=== PATIENT | female | born 1995 | race Caucasian/White ===

== ENCOUNTER → 2018-05-29 16:53 | Outpatient (CLI) | payer OTHER, SELFPAY ==
--- NOTE | 2018-05-29 08:30 | FLU_PTH ---
PATIENT: JACQUE LENTZ LOC: [facility] U#:[id number] AGE/SX: 29/F ROOM: RE05/29/[address]: Dr. Carolyn Nolen MD : 1995 BED: DIS: SPEC #: [id number] RECD: 05/29/18 16:58 STATUS: JANELL EVELYN #: [id number] SELVIN: 05/29/18 08:[address]: Carolyn Nolen DEPT: CYTOLOGY RECD BY: Dimitry Gomez ENTERED: 06/02/18 10:29 SP TYPE: Fluid OTHR DR: Qian Primary Care Phys Tissues: A - Thyroid gland, NOS B - Thyroid gland, NOS Procedures: Special Stain Group II Surgery Specimen Level IV Cytospin Fluid HEADER OPERATION: Ultrasound-guided fine needle aspiration of right thyroid PRE-OP DIAGNOSIS: Thyroid nodules TISSUE SUBMITTED: A - FNA right thyroid for cytology, B - FNA right thyroid slides DIAGNOSIS CYTOLOGY A. Right thyroid fluid, ultrasound-guided FNA (cytospin and cell block): Consistent with benign follicular nodule with cystic changes. See cytology study and comment. B. Right thyroid, ultrasound-guided FNA (smears): Consistent with benign follicular nodule with cystic changes. See cytology study and comment. SJ:rg 06/03/18 COMMENT Correlation with clinical, radiologic findings and appropriate follow up are necessary. Please make reference to previous specimen ([id number]) fine needle aspiration, right thyroid nodule with diagnosis of macrophages consistent with cyst contents. CYTOLOGY STUDY Slides are reviewed. A. The specimen consists of benign follicular cells and macrophages. B. The specimen is adequate for evaluation. The specimen consists of numerous macrophages and benign follicular cells. CYTOLOGY GROSS A - Received is 20 ml of brown cloudy fluid labeled with the patient's name and and designated per the requisition as right thyroid. Submitted for cytology preparation including cell block. B - Received are eight smears labeled with the patient's name and designated per the requisition as right thyroid. Submitted for staining. / 06/02/18 TC:5 CPT: 93360, 67783, 97030
== END ==
PROVIDERS: Referring Provider Surgery; Visit Provider Surgery
DX: E04.1 Nontoxic single thyroid nodule (principal)
CPT/HCPCS: 88108; 88305; 88313

== ENCOUNTER → 2018-06-29 15:14 | Outpatient (CLI) | payer OTHER, SELFPAY ==
[2018-06-29 18:27] LABS: Chlamydia Trachomatis by PCR Negative (Negative); Neisserai gonorrhoeae by PCR Negative (Negative); Probe Check PASS; Sample Adequacy Control PASS; Specimen Processing Control PASS
[2018-07-01 20:17] LABS: HPV Reflexed? NOT INDICATED
== END ==
PROVIDERS: Referring Provider Nurse Practitioner Women's Health; Visit Provider Nurse Practitioner Women's Health
DX: Z12.4 Encounter for screening for malignant neoplasm of cervix (principal); Z11.3 Encounter for screening for infections with a predominantly sexual mode of transmission
CPT/HCPCS: 87491; 87591; 87624; 88175; G0145

== ENCOUNTER → 2019-07-05 | Outpatient (CLI) | payer OTHER, SELFPAY ==
[2019-07-09 11:34] LABS: HPV Reflexed? NOT INDICATED
== END | disposition home or self-care (01) ==
PROVIDERS: PCP Family Medicine; Referring Provider Nurse Practitioner Women's Health; Visit Provider Nurse Practitioner Women's Health
DX: Z12.4 Encounter for screening for malignant neoplasm of cervix (principal)
CPT/HCPCS: 88175; G0145

== ENCOUNTER → 2020-07-27 | Outpatient (CLI) | payer OTHER, SELFPAY ==
[2020-07-27 08:13] VITALS: BMI 40.2
[2020-07-31 16:27] LABS: HPV Reflexed? NOT INDICATED
== END | disposition home or self-care (01) ==
LOC: LABSPEC 12:58
PROVIDERS: PCP Family Medicine; Referring Provider Nurse Practitioner Women's Health; Visit Provider Nurse Practitioner Women's Health
DX: Z12.4 Encounter for screening for malignant neoplasm of cervix (principal)
CPT/HCPCS: 88175; G0145

== ENCOUNTER → 2020-08-02 07:50 | Outpatient (CLI) | payer OTHER, SELFPAY ==
[2020-07-27 08:13] VITALS: BMI 40.2
[2020-08-02 08:32] LABS: Cholesterol 160 mg/dL (200); Estradiol 69.9 pg/mL; High Density Lipoprotein 25 mg/dL; Prolactin 23.7 ng/mL; Triglycerides 91 mg/dL; Very Low Density Lipoprotein 18 mg/dL (5-40)
[2020-08-06 07:57] LABS: Testosterone Free 5.1 pg/mL (0.0-4.2)
[2020-08-12 20:05] LABS: 17-Hydroxyprogesterone 84 ng/dL (.)
== END ==
PROVIDERS: PCP Family Medicine; Referring Provider Nurse Practitioner Women's Health; Visit Provider Nurse Practitioner Women's Health
DX: L68.0 Hirsutism (principal); N92.6 Irregular menstruation, unspecified; R63.5 Abnormal weight gain; Z13.220 Encounter for screening for lipoid disorders; E28.2 Polycystic ovarian syndrome
CPT/HCPCS: 36415; 80061; 82627; 82670; 83498; 84146; 84402; 82626

== ENCOUNTER 2020-08-24 19:03 | Emergency (ER) | payer OTHER, SELFPAY ==
[2020-08-10 08:02] VITALS: BMI 40.4
[2020-08-24 19:04] VITALS: BP 137/74; PULSE 76; RESP 18; TEMP 35.8; O2SAT 99; BMI 39.6
--- NOTE | 2020-08-24 20:06 | US_ITS ---
STUDY: VENOUS DOPPLER ULTRASOUND - RIGHT LOWER EXTREMITY REASON FOR EXAM: Female, 25 years old. POSTERIOR RT CALF PAIN- PT ON NEW CONTROL AND CONCERNED FOR BLOOD CLOT TECHNIQUE: Ultrasound evaluation of the deep vein system to include sultana-scale imaging and compression was performed. Sultana-scale imaging and Doppler sonographic evaluation, including duplex spectral analysis and qualitative color flow sonography, was performed. COMPARISON: None. FINDINGS: Common Femoral Vein: Normal compression, spontaneity and augmentation. Normal color Doppler. Common Femoral Vein/Greater Saphenous Junction: Normal compression. Femoral Proximal: Normal compression. Femoral Middle: Normal compression, spontaneity and augmentation. Normal color Doppler. Femoral Distal: Normal compression. Popliteal Vein: Normal compression, spontaneity and augmentation. Normal color Doppler. Posterior Tibial Vein: Normal compression. Peroneal Vein: Normal compression. There is a filling defect within the gastrocnemius vein consistent with a thrombus. There is a thrombus within the lesser saphenous vein as well. US/Venous Duplex Imag/Limited/Uni IMPRESSION: Thrombosed gastrocnemius and lesser saphenous veins. Electronically Signed: Marisol Pfeiffer MD at 20:54 EDT Tel , Service support ,
--- NOTE | 2020-08-24 20:43 | EDS_ITS ---
HPI History of Present Illness Chief Complaint: Lower Extremity Injury Informant: patient Onset/Context/Timing Onset: Today Context: Gradual Onset Timing: Continuous Quality of Pain: Dull Current Severity: Mild Maximum Severity: Mild Narrative Narrative: The patient is a healthy 25-year-old female that presents to the emergency department with posterior right calf pain. The patient states that she recently started control. Today at approximately 4 PM, she noticed a sharp pain in her calf. She denies any chest pain or shortness of breath. She is otherwise been in her normal state of health. She did call her CUT FILE CLERK who referred her to the emergency department for further evaluation. [facility] Medical History Thyroid nodule Home Medications norgestimate 0.25 mg-ethinyl estradiol 35 mcg tablet 1 tablet PO QDAY #84 tablet 08/10/20 [Rx Last Taken Unknown] apixaban [Eliquis DVT-PE Treat 30D Start] 5 mg PO BID #74 tab NS 08/24/20 [Rx Last Taken Unknown] Allergy/AdvReac Type Severity Reaction Status Date / Time codeine AdvReac Other Verified 08/24/20 19:06 Family History Unknown Hypertension Surgical History delivery delivered History of appendectomy Social History Smoking Status: Light Smoker (<10/day) alcohol intake: never substance use type: does not use caffeine: Yes what type of physical activity do you participate in: walking seatbelt use: always do you feel safe at home: Yes additional social history: single- works at [employer] ED Constitutional Constitutional ED: Denies chills or fever(s) Eyes Eyes: Denies blurry vision or change in vision ENT ENT ED: Denies ear pain or sore throat Cardiovascular Cardiovascular: Denies chest pain or palpitations Respiratory/Chest Respiratory/Chest: Denies cough, dyspnea or dyspnea on exertion Gastrointestinal Gastrointestinal: Denies abdominal pain, nausea or vomiting Genitourinary Genitourinary ED: Denies dysuria or urinary frequency Musculoskeletal Musculoskeletal: Denies arthralgias or myalgias Integumentary Denies rash Neurologic Neurologic: Denies headache(s) or paresthesias Psychiatric Psychiatric: Denies anxiety or depression Endocrine Endocrinology: Denies polydipsia or polyuria Allergic/Immunologic Allergic/Immunologic ED: Denies urticaria EXAM Physical Exam Const Vital Signs: 08/24/20 19:04 Temperature 96.5 F L Temperature Source Temporal Pulse Rate 76 Respiratory Rate 18 Blood Pressure 137/74 H Blood Pressure Mean 95 Pulse Ox 99 Oxygen Delivery Method Room Air Positive well nourished and well developed General Appearance ED: well developed HEENT Reports normocephalic, head/scalp atraumatic and moist mucous membranes Eyes PERRL and EOMs intact bilaterally Neck no lymphadenopathy and supple General: Negative for tenderness Chest Wall inspection of chest normal Resp normal respiratory effort and clear to auscultation bilaterally Cardio regular rate, regular rhythm and no murmurs GI normal to inspection, nondistended, normoactive bowel sounds Palpation: Negative for tender, guarding or rebound tenderness present Back/Spine no CVA tenderness Cervical Spine: Negative for cervical spine tenderness Thoracic Spine / Upper Back: Negative for thoracic spinal tenderness Extremity normal to inspection Extremity Narrative: Mild tenderness in the posterior right calf. Normal pulses. Compartments soft. General Extremety ED: Negative for tenderness Neuro oriented x3 and CN's II-XII intact bilaterally Neuro Narrative: No focal deficits appreciated. Sensorium / Orientation: alert Psych mental status grossly normal Skin no rashes or lesions noted, no wounds and skin turgor normal MDM MDM MDM Narrative Medical decision making narrative: Patient presents with calf pain. She did undergo ultrasound. She has both superficial and deep venous thrombosis. It is below the knee. I did discuss this with the patient. Due to her risk of propagation, she wants to start anticoagulants. I do feel that this is reasonable. The patient will be started on Eliquis. She will follow-up with CUT FILE CLERK for reevaluation or return with any worsening symptoms. Discharge Plan Triage Chief Complaint: Lower Extremity Injury ED Provider: Elgin Peña Dx/Rx/DC Orders Instructions: ED Deep Vein Thrombosis (DVT) Prescriptions: New Eliquis DVT-PE Treat 30D Start 5 mg (74 tabs) tablets,dose pack 5 mg PO BID Qty: 74 RF: 0 No Action norgestimate-ethinyl estradiol [Sprintec (28)] 0.25-35 mg-mcg tablet 1 tablet PO QDAY Qty: 84 RF: 3 Primary Care Provider: Sami Amaral Referrals: Sami Amaral MD [Primary Care Provider] - 1 Week
[2020-08-24 21:13] VITALS: BP 127/76
[2020-08-24] MEDS: APIXABAN 5 MG TABLET 10 MG PO (21:14)
== END 2020-08-24 21:15 | disposition home or self-care (01) ==
LOC: ED 21:00
PROVIDERS: Emergency Provider Emergency Medicine; PCP Family Medicine
DX: I82.461 Acute embolism and thrombosis of right calf muscular vein (principal); I82.811 Embolism and thrombosis of superficial veins of right lower extremity; F17.200 Nicotine dependence, unspecified, uncomplicated
CPT/HCPCS: 93971; 99282

== ENCOUNTER → 2020-09-19 10:05 | Outpatient (CLI) | payer OTHER, SELFPAY ==
[2020-09-19 08:15] VITALS: BMI 39.6
[2020-09-19 12:32] LABS: Free T3 3.2 pg/mL (2.18-3.98); T4 Free Direct 1.24 ng/dL (0.76-1.46)
[2020-09-20 22:13] LABS: Thyroid Peroxidase AB < 9 IU/mL (0-34)
[2020-09-21 17:07] LABS: Thyroglobulin Antibody < 1.0 IU/mL (0.0-0.9)
== END ==
PROVIDERS: PCP Internal Medicine; Referring Provider Internal Medicine; Visit Provider Internal Medicine
DX: E04.2 Nontoxic multinodular goiter (principal)
CPT/HCPCS: 36415; 84439; 84443; 84481; 86376; 86800

== ENCOUNTER 2021-05-30 09:49 | Outpatient (CLI) | payer OTHER, SELFPAY ==
[2021-05-30 12:15] LABS: Basophil# 0.04 X10^3/uL; Basophil% 0.4 % (0-1); Eosinophil# 0.11 X10^3/uL; Eosinophils% 1.2 % (0-5); Hematocrit 40.1 % (37-47); Hemoglobin 13.3 g/dL (12.0-15.0); Lymphocyte % 24.2 % (19-41); Mean Corp Hgb Conc 33.2 g/dL (32-36); Mean Corpuscular Hgb 28.5 pg (27.0-32.0); Mean Corpuscular Volume 86.1 fL (81-99); Mean Platelet Vol. 9.1 fl (6.2-12.0); Monocyte# 0.73 X10^3/uL; NRBC Flagged by Analyzer 0 % (0-5); Neutrophil # 5.98 X10^3/uL (2.7-7.7); Neutrophil % 65.9 % (47-70); Platelet Count 356 K/mm3 (150-450); RBC Distribution Width CV 13.6 % (11.6-14.6); RBC Distribution Width SD 42.9 fl (35.1-43.9); Red Blood Count 4.66 M/mm3 (4.2-5.4); White Blood Count 9.1 K/mm3 (4.4-11.0)
[2021-05-30 12:31] LABS: Vitamin D,25 Hydroxy 32.9 ng/mL
[2021-05-30 12:50] LABS: ALB/GLOB Ratio 0.9 RATIO (0.9-2.4); AST(SGOT) 15 U/L (15-37); Alanine Aminotransfer ALT/SGPT 31 U/L (13-56); Albumin, Serum 3.6 g/dL (3.2-5.0); Alkaline Phosphatase 88 U/L (45-117); Anion Gap 5 (5-15); BUN 14 mg/dL (7-18); BUN/Creat Ratio 15.9 RATIO (10-20); Chloride 102 mmol/L (98-107); Cholesterol 173 mg/dL (200); Creatinine, Serum 0.88 mg/dL (0.55-1.02); EST Glomerular Filtration Rate 83 mL/min (>60); Est Glom Filt Rate - Afr Amer 101 mL/min (>60); Free T3 2.8 pg/mL (2.18-3.98); Globulin 4.2 g/dL (2.2-4.2); Glucose 93 mg/dL (74-106); High Density Lipoprotein 22 mg/dL; Potassium 4.4 mmol/L (3.5-5.1); Protein, Total 7.8 g/dL (6.4-8.2); Sodium Level 136 mmol/L (136-145); T4 Free Direct 1.25 ng/dL (0.76-1.46); Thyroid Stim Hormone (TSH) 1.48 uIU/mL (0.358-3.74); Triglycerides 111 mg/dL; Very Low Density Lipoprotein 22 mg/dL (5-40)
== END 2021-05-30 23:59 | disposition short-term general hospital (02) ==
LOC: BIMLAB 09:50
PROVIDERS: PCP Internal Medicine; Referring Provider Internal Medicine; Visit Provider Internal Medicine
DX: E04.2 Nontoxic multinodular goiter (principal); E28.2 Polycystic ovarian syndrome; Z76.89 Persons encountering health services in other specified circumstances
CPT/HCPCS: 36415; 80053; 80061; 82306; 84439; 84443; 84481; 85025

== ENCOUNTER 2021-07-03 08:08 | Outpatient (CLI) | payer OTHER, SELFPAY ==
--- NOTE | 2021-07-03 08:10 | US_ITS ---
STUDY: THYROID ULTRASOUND REASON FOR EXAM: Female, 26 years old. Followup thyroid multinodular goiter -- Please include TIRADS score. TECHNIQUE: Ultrasound evaluation of the thyroid was performed with real-time and static hutton-scale imaging. COMPARISON: Comparison is made with prior study dated 09/16/2014. FINDINGS: RIGHT LOBE: The right lobe of the thyroid gland is enlarged and measures 5.7 cm x 2 cm x 1.4 cm. There is a homogeneous echotexture. There is a 1.7 cm x 1.5 cm x 0.9 cm solid and cystic nodule in the lower pole. Increased vascularity is seen. TIRADS 3. There is also evidence of a 6 mm x 5 mm x 4 mm cyst in the upper pole. LEFT LOBE: The left lobe of the thyroid gland is enlarged and measures 5.4 cm x 2 cm x 1.1 cm. There is a homogeneous echotexture. There are no demonstrated solid, cystic or complex lesions. ISTHMUS: The isthmus measures 2 mm. The regional lymph nodes are normal. US/Thyroid IMPRESSION: 1.7 cm x 1.5 cm x 0.9 cm solid and cystic nodule in the lower pole with increased vascularity. Biopsy recommended. TIRADS 3 Electronically Signed: Biju Wei MD at 12:54 EST ,
== END 2021-07-03 23:59 | disposition home or self-care (01) ==
PROVIDERS: PCP Internal Medicine; Referring Provider Internal Medicine; Visit Provider Internal Medicine
DX: E04.2 Nontoxic multinodular goiter (principal)
CPT/HCPCS: 76536

== ENCOUNTER 2021-07-30 09:55 | Outpatient (CLI) | payer OTHER, SELFPAY ==
[2021-08-07 16:02] LABS: HPV Reflexed? NOT INDICATED
== END 2021-07-30 23:59 | disposition home or self-care (01) ==
LOC: LABSPEC 07-31 09:56
PROVIDERS: PCP Internal Medicine; Visit Provider Nurse Practitioner Women's Health
DX: R87.610 Atypical squamous cells of undetermined significance on cytologic smear of cervix (ASC-US) (principal); R87.810 Cervical high risk human papillomavirus (HPV) DNA test positive
CPT/HCPCS: 88175; G0145

== ENCOUNTER → 2022-03-14 | Outpatient (CLI) | payer OTHER, SELFPAY ==
--- NOTE | 2022-03-14 07:45 | US_ITS ---
STUDY: ULTRASOUND OF THE FEMALE PELVIS - COMPLETE REASON FOR EXAM: Female, 26 years old. Pelvic pain/IUD placement LMP: 02/09/2023. TECHNIQUE: Transvaginal TECHNICAL QUALITY: Adequate. COMPARISON: None. FINDINGS: The uterus is anteverted and is tilted to the right side of the pelvis. The uterus measures 8.9 cm x 5.7 cm x 4.1 cm. There is a Nabothian cyst of the cervix. The endometrium measures 5 mm in thickness, and is hyperechoic. There is no demonstrated endometrial mass. There is no demonstrated myometrial mass. I.U.D. - The patient does have an I.U.D.. The IUD is seen within the fundal portion of the endometrium. The right ovary is visualized. The right ovary measures 2.8 cm x 2.3 cm x 2.6 cm. There is no right ovarian cyst or ovarian mass. There is no visualized right adnexal mass or complex lesion. There is normal arterial and normal venous vascularity. The left ovary is visualized. The left ovary measures 2.6 cm x 2.6 x 2.9 cm. There is no left ovarian cyst or ovarian mass. There is no visualized left adnexal mass or complex lesion. There is normal arterial and normal venous vascularity. There is no fluid in the cul-de-sac. US/Transvaginal Non- IMPRESSION: The IUD is seen within the fundal portion of the endometrium. Electronically Signed: Biju Wei MD at 8:37 EST ,
== END | disposition home or self-care (01) ==
PROVIDERS: PCP Internal Medicine; Visit Provider Obstetrics & Gynecology
DX: R10.2 Pelvic and perineal pain (principal)
CPT/HCPCS: 76830; 93976

== ENCOUNTER → 2022-08-26 | Outpatient (CLI) | payer OTHER, SELFPAY ==
[2022-08-26 10:54] LABS: HIV - WCH Non-Reactive (Nonreactive); Hepatitis C Antibody Non-Reactive (Nonreactive); Syphilis Antibodies Non-reactive
[2022-08-27 22:06] LABS: Chlamydia By Nucleic Acid AMP Negative (Negative); Gonococcus By Nucleic Acid AMP Negative (Negative)
== END | disposition home or self-care (01) ==
PROVIDERS: PCP Internal Medicine; Referring Provider Nurse Practitioner Women's Health; Visit Provider Nurse Practitioner Women's Health
DX: Z20.2 Contact with and (suspected) exposure to infections with a predominantly sexual mode of transmission (principal)
CPT/HCPCS: 36415; 86695; 86696; 86703; 86780; 86803; 87491; 87591

== ENCOUNTER → 2023-02-17 | Outpatient (CLI) | payer OTHER, SELFPAY ==
--- NOTE | 2023-02-17 15:35 | VDLE_ITS ---
Reason For Study: Right leg swelling/pain RIGHT LEFT GSV is normal. CFV is compressible, spontaneous, phasic, CFV is compressible, spontaneous, phasic, competent, and demonstrates normal competent and demonstrates normal augmentation. augmentation. FV is compressible, spontaneous, phasic, competent and demonstrates normal augmentation. POP V is compressible, spontaneous, phasic, competent and demonstrates normal augmentation. T/P Trunk is compressible. PTV is compressible. RT PerV is compressible. Acute deep vein thrombosis is noted in the Gastrocnemius V. It is dilated and NONCOMPRESSIBLE. Procedure Exam performed in department. This is a venous duplex using B-mode, color flow and spectral Doppler. A preliminary report was called and/or faxed to Matthew CARREON. VL/Venous Duplex US, Unilateral Interpretation Summary Acute deep vein thrombosis is noted in the right gastrocnemius vein. Ordering Physician: Kiara Hernandez Referring Physician: Kiara Hernandez Performed By: Chery Bird RVT
== END | disposition home or self-care (01) ==
LOC: CVS 15:32
PROVIDERS: PCP Internal Medicine; Referring Provider Internal Medicine; Visit Provider Internal Medicine
DX: I82.409 Acute embolism and thrombosis of unspecified deep veins of unspecified lower extremity (principal); M79.89 Other specified soft tissue disorders; M79.604 Pain in right leg
CPT/HCPCS: 93971

== ENCOUNTER → 2023-02-21 | Outpatient (CLI) | payer OTHER, SELFPAY ==
[2023-02-21 12:12] LABS: Absolute Lymphocyte Count 2.15 X10^3/uL (0.83-4.51); Absolute Neutrophil Count 4.9 X10^3/uL (2.0-7.7); Basophil# 0.05 X10^3/uL; Basophil% 0.6 % (0-1); Eosinophil# 0.14 X10^3/uL; Eosinophils% 1.8 % (0-5); Hematocrit 40.4 % (37-47); Hemoglobin 13.3 g/dL (12.0-15.0); Lymphocyte # 2.15 X10^3/ul (0.83-4.51); Lymphocyte % 27.2 % (19-41); Mean Corp Hgb Conc 32.9 g/dL (32-36); Mean Corpuscular Hgb 29.6 pg (27.0-32.0); Mean Platelet Vol. 9.1 fl (6.2-12.0); Monocyte# 0.69 X10^3/uL; Monocyte% 8.7 % (0-10); NRBC Flagged by Analyzer 0 % (0-5); Neutrophil # 4.85 X10^3/uL (2.7-7.7); Neutrophil % 61.6 % (47-70); Platelet Count 318 K/mm3 (150-450); RBC Distribution Width CV 12.9 % (11.6-14.6); RBC Distribution Width SD 43.2 fl (35.1-43.9); Red Blood Count 4.49 M/mm3 (4.2-5.4); White Blood Count 7.9 K/mm3 (4.4-11.0)
[2023-02-21 12:28] LABS: Insulin 14.2 mU/L (2.6-37.6); Vitamin D,25 Hydroxy 33.5 ng/mL
[2023-02-21 12:38] LABS: ALB/GLOB Ratio 0.8 RATIO (0.9-2.4); AST(SGOT) 11 U/L (15-37); Alanine Aminotransfer ALT/SGPT 27 U/L (13-56); Albumin, Serum 3.3 g/dL (3.2-5.0); Alkaline Phosphatase 76 U/L (45-117); Anion Gap 5 (5-15); BUN 14 mg/dL (7-18); BUN/Creat Ratio 16.1 RATIO (10-20); Calcium,Total 8.5 mg/dL (8.5-10.1); Chloride 106 mmol/L (98-107); Cholesterol 159 mg/dL (200); Creatinine, Serum 0.87 mg/dL (0.55-1.02); EST Glomerular Filtration Rate 83 mL/min (>60); Est Glom Filt Rate - Afr Amer 100 mL/min (>60); Free T3 3.1 pg/mL (2.18-3.98); Glucose 90 mg/dL (74-106); High Density Lipoprotein 28 mg/dL; Potassium 3.7 mmol/L (3.5-5.1); Protein, Total 7.3 g/dL (6.4-8.2); Sodium Level 136 mmol/L (136-145); T4 Free Direct 1.24 ng/dL (0.76-1.46); Thyroid Stim Hormone (TSH) 1.46 uIU/mL (0.358-3.74); Triglycerides 78 mg/dL; Very Low Density Lipoprotein 16 mg/dL (5-40)
== END | disposition home or self-care (01) ==
PROVIDERS: PCP Internal Medicine; Referring Provider Internal Medicine; Visit Provider Internal Medicine
DX: Z00.00 Encounter for general adult medical examination without abnormal findings (principal); I82.409 Acute embolism and thrombosis of unspecified deep veins of unspecified lower extremity; Z13.220 Encounter for screening for lipoid disorders; Z86.718 Personal history of other venous thrombosis and embolism; R73.9 Hyperglycemia, unspecified
CPT/HCPCS: 36415; 80053; 80061; 82306; 83036; 83525; 84439; 84443; 84481; 85025

== ENCOUNTER → 2023-08-26 | Outpatient (CLI) | payer OTHER, SELFPAY ==
[2023-08-26 09:57] LABS: Absolute Neutrophil Count 3.6 X10^3/uL (2.0-7.7); Basophil# 0.06 X10^3/uL; Basophil% 0.9 % (0-1); Eosinophil# 0.17 X10^3/uL; Eosinophils% 2.6 % (0-5); Hematocrit 40.8 % (37-47); Hemoglobin 13.4 g/dL (12.0-15.0); Lymphocyte % 33.4 % (19-41); Mean Corp Hgb Conc 32.8 g/dL (32-36); Mean Corpuscular Hgb 28.7 pg (27.0-32.0); Mean Corpuscular Volume 87.4 fL (81-99); Mean Platelet Vol. 8.9 fl (6.2-12.0); Monocyte# 0.53 X10^3/uL; NRBC Flagged by Analyzer 0 % (0-5); Neutrophil # 3.61 X10^3/uL (2.7-7.7); Neutrophil % 54.8 % (47-70); Platelet Count 363 K/mm3 (150-450); RBC Distribution Width CV 13.7 % (11.6-14.6); RBC Distribution Width SD 44.2 fl (35.1-43.9); Red Blood Count 4.67 M/mm3 (4.2-5.4); White Blood Count 6.6 K/mm3 (4.4-11.0)
[2023-08-26 10:17] LABS: D-Dimer Quantitative (DVT/PE) < 0.27 FEU/ug/m (0.27-0.49)
[2023-08-26 10:22] LABS: Vitamin D,25 Hydroxy 31.1 ng/mL
[2023-08-26 10:36] LABS: ALB/GLOB Ratio 0.9 RATIO (0.9-2.4); AST(SGOT) 16 U/L (15-37); Alanine Aminotransfer ALT/SGPT 27 U/L (13-56); Albumin, Serum 3.5 g/dL (3.2-5.0); Alkaline Phosphatase 77 U/L (45-117); Anion Gap 5 (5-15); BUN 10 mg/dL (7-18); BUN/Creat Ratio 11.4 RATIO (10-20); Calcium,Total 8.6 mg/dL (8.5-10.1); Chloride 108 mmol/L (98-107); Cholesterol 162 mg/dL (200); Creatinine, Serum 0.88 mg/dL (0.55-1.02); EST Glomerular Filtration Rate 82 mL/min (>60); Est Glom Filt Rate - Afr Amer 99 mL/min (>60); Free T3 2.8 pg/mL (2.18-3.98); Globulin 3.8 g/dL (2.2-4.2); Glucose 96 mg/dL (74-106); High Density Lipoprotein 30 mg/dL; Potassium 4.1 mmol/L (3.5-5.1); Protein, Total 7.3 g/dL (6.4-8.2); Sodium Level 138 mmol/L (136-145); T4 Free Direct 1.13 ng/dL (0.76-1.46); Thyroid Stim Hormone (TSH) 2.01 uIU/mL (0.358-3.74); Triglycerides 65 mg/dL; Very Low Density Lipoprotein 13 mg/dL (5-40)
[2023-08-28 16:09] LABS: Dilute Prothrombin Time (dPT) 45.2 sec (0.0-47.6); Dilute Russell Viper Venom 44.2 sec (0.0-47.0); Interpretation Comment: (.); PTT-LA 38.1 sec (0.0-43.5); Thrombin Time 15.9 sec (0.0-23.0); dPT Confirm Ratio 1.23 Ratio (0.00-1.34)
== END | disposition home or self-care (01) ==
PROVIDERS: PCP Internal Medicine; Visit Provider Internal Medicine
DX: Z00.00 Encounter for general adult medical examination without abnormal findings (principal); Z13.220 Encounter for screening for lipoid disorders; E78.6 Lipoprotein deficiency; E04.2 Nontoxic multinodular goiter; E55.9 Vitamin D deficiency, unspecified; R76.0 Raised antibody titer; Z86.718 Personal history of other venous thrombosis and embolism
CPT/HCPCS: 36415; 80053; 80061; 82306; 84439; 84443; 84481; 85025; 85379

== ENCOUNTER → 2023-10-09 | Outpatient (CLI) | payer OTHER, SELFPAY ==
[2023-10-09 09:44] LABS: Absolute Lymphocyte Count 2.34 X10^3/uL (0.83-4.51); Absolute Neutrophil Count 6.3 X10^3/uL (2.0-7.7); Basophil# 0.06 X10^3/uL; Basophil% 0.6 % (0-1); Eosinophil# 0.11 X10^3/uL; Eosinophils% 1.1 % (0-5); Hematocrit 42.1 % (37-47); Hemoglobin 13.8 g/dL (12.0-15.0); Lymphocyte # 2.34 X10^3/ul (0.83-4.51); Lymphocyte % 24.4 % (19-41); Mean Corp Hgb Conc 32.8 g/dL (32-36); Mean Corpuscular Hgb 28.2 pg (27.0-32.0); Mean Corpuscular Volume 86.1 fL (81-99); Mean Platelet Vol. 8.7 fl (6.2-12.0); Monocyte# 0.77 X10^3/uL; NRBC Flagged by Analyzer 0 % (0-5); Neutrophil % 65.7 % (47-70); Platelet Count 328 K/mm3 (150-450); RBC Distribution Width CV 13.2 % (11.6-14.6); RBC Distribution Width SD 41.5 fl (35.1-43.9); Red Blood Count 4.89 M/mm3 (4.2-5.4); White Blood Count 9.6 K/mm3 (4.4-11.0)
[2023-10-09 09:58] LABS: ALB/GLOB Ratio 0.9 RATIO (0.9-2.4); AST(SGOT) 16 U/L (15-37); Alanine Aminotransfer ALT/SGPT 21 U/L (13-56); Albumin, Serum 3.6 g/dL (3.2-5.0); Alkaline Phosphatase 70 U/L (45-117); Anion Gap 5 (5-15); BUN 14 mg/dL (7-18); BUN/Creat Ratio 16.1 RATIO (10-20); Calcium,Total 9.2 mg/dL (8.5-10.1); Chloride 106 mmol/L (98-107); Creatinine, Serum 0.87 mg/dL (0.55-1.02); EST Glomerular Filtration Rate 83 mL/min (>60); Est Glom Filt Rate - Afr Amer 100 mL/min (>60); Glucose 111 mg/dL (74-106); Lipase 31 U/L (13-75); Potassium 3.7 mmol/L (3.5-5.1); Protein, Total 7.6 g/dL (6.4-8.2); Sodium Level 137 mmol/L (136-145)
== END | disposition home or self-care (01) ==
LOC: PAVLAB 09:24
PROVIDERS: PCP Internal Medicine; Referring Provider Internal Medicine; Visit Provider Internal Medicine
DX: R11.2 Nausea with vomiting, unspecified (principal); R14.0 Abdominal distension (gaseous)
CPT/HCPCS: 36415; 80053; 83690; 85025

== ENCOUNTER 2024-01-28 07:04 | Emergency (ER) | payer OTHER, SELFPAY ==
[2024-01-28 07:04] VITALS: BP 153/91; PULSE 96; RESP 18; TEMP 36.6; O2SAT 100; BMI 38.0
--- NOTE | 2024-01-28 07:20 | EKG12_ITS ---
Test Reason : DIZZINESS Blood Pressure : / mmHG Vent. Rate : 078 BPM Atrial Rate : 078 BPM P-R Int : 206 ms QRS Dur : 098 ms QT Int : 362 ms P-R-T Axes : 057 037 032 degrees QTc Int : 412 ms Normal sinus rhythm Normal ECG Confirmed by INGRID WILCOX, DANIELLE ([id number]), greeting card editor ERWIN MALAVE ([id number]) on 01/30/2024 11:46:43 AM Referred By: Confirmed By:DANIELLE QUINTERO MD
--- NOTE | 2024-01-28 07:23 | EX.ED.DYSGE1 ---
HPI History of Present Illness Chief Complaint: Dizziness Informant: patient Narrative Narrative: Presents symptoms little over 24 hours reporting chills muscle aches. Had a cough 2 days ago that is resolved. Vomiting diarrhea or last 24 hours. Nonbloody. 4 bouts of vomiting, 2 bouts of diarrhea. No recent antibiotics. Denies any hematemesis, melena, or bloody stools. She is on Eliquis for DVTs with factor V Leiden. No urinary symptoms. Has an IUD therefore unknown last menstrual period. Denies sick contacts. States lightheaded symptoms denies dizzy or spinning. No syncopal episodes. No chest pains or shortness of breath. [facility] Medical History Palpitations GERD (gastroesophageal reflux disease) Anxiety Multinodular goiter DVT (deep venous thrombosis) Thyroid nodule Home Medications ?Medication ?Instructions ?Recorded ?Last Taken ?Type levonorgestrel 21 mcg/24 hr (up to 1 device intrauterine ONCE 03/27/22 Unknown History 8 years) 52 mg intrauterine device (Mirena) sertraline 50 mg tablet (Zoloft) 50 mg PO DAILY #90 tabs 06/19/22 Unknown Rx lidocaine 4 % topical gel 1 applic topical BID-QID PRN pain 02/04/23 Unknown Rx #30 grams probiotic PO 02/20/23 Unknown History valacyclovir 1 gram tablet 1,000 mg PO BID PRN 02/20/23 Unknown History (Valtrex) apixaban 5 mg tablet (Eliquis) 5 mg PO BID #180 tabs 03/18/23 Unknown Rx spironolactone 100 mg tablet 100 mg PO DAILY #90 tabs 08/19/23 Unknown Rx cholecalciferol (vitamin D3) 50 50 mcg PO DAILY 10/09/23 Unknown History mcg (2,000 unit) capsule ondansetron 4 mg disintegrating 4 mg PO Q8H PRN PRN Nausea #10 tabs 01/28/24 Unknown Rx tablet Allergy/AdvReac Type Severity Reaction Status Date / Time codeine AdvReac Other Verified 01/28/24 07:04 Family History Unknown Hypertension Mother Diabetes Grandmother Neuropathy Surgical History History of appendectomy delivery delivered Social History Smoking Status: Former smoker quit date: 02/26/18 Tobacco: How many years used: 4 alcohol intake: never substance use type: does not use caffeine: Yes what type of physical activity do you participate in: walking seatbelt use: always do you feel safe at home: Yes additional social history: single- works at [employer] ED Constitutional Constitutional ED: Reports chills and fever(s); Denies sweats Eyes Eyes: Denies change in vision ENT ENT ED: Denies dysphagia or sore throat Cardiovascular Cardiovascular: Denies chest pain, leg edema, palpitations or racing heartbeat Respiratory/Chest Respiratory/Chest: Denies cough, dyspnea or dyspnea on exertion Gastrointestinal Gastrointestinal: Reports diarrhea, nausea and vomiting; Denies abdominal pain Genitourinary Genitourinary ED: Denies dysuria, hematuria or urinary frequency Musculoskeletal Musculoskeletal: Reports myalgias; Denies back pain, extremity pain or neck pain Integumentary Denies rash or wounds Neurologic Neurologic: Denies headache(s), paresthesias or weakness EXAM Physical Exam Const Vital Signs: 01/28/24 07:04 01/28/24 09:07 Temperature 97.8 F Temperature Source Temporal Pulse Rate 96 81 Respiratory Rate 18 15 Blood Pressure 153/91 H 116/71 Blood Pressure Mean 111 86 Pulse Ox 100 95 Oxygen Delivery Method Room Air Room Air Positive well nourished and well developed General Appearance ED: well developed and NAD HEENT HEENT Narrative: Mild dry mucosal membranes normocephalic and atraumatic Eyes EOMs intact bilaterally and conjunctivae normal General Eye ED: Yes normal appearance of both eyes Neck no lymphadenopathy and supple General: Negative for tenderness Chest Wall Chest: Negative for tenderness Resp normal respiratory effort and normal air movement Effort and Inspection: symmetric chest movement; Negative for respiratory distress Cardio regular rate, regular rhythm and no murmurs Peripheral Pulses: pulses 2+ throughout GI normal to inspection, nondistended, normoactive bowel sounds and non-tender GI Narrative: Negative England's and McBurney's tenderness Palpation: Negative for guarding or rebound tenderness present Back/Spine no CVA tenderness and no thoracic nor lumbar tenderness Extremity normal to inspection General Extremety ED: Negative for edema or tenderness General Extremity: Negative for edema Neuro oriented x3, CN's II-XII intact bilaterally and no sensory deficits noted Sensorium / Orientation: awake and alert Skin no rashes or lesions noted and no wounds MDM MDM MDM Narrative Medical decision making narrative: Interventions / MDM: Differential diagnosis: Viral syndrome, nausea and vomiting, electrolyte abnormalities Diagnosis considered but do not suspect: No clinical cholecystitis, colitis, or appendicitis My EKG interpretation: Sinus rate of 78, no ST or T wave changes. QTc 412. Imaging independently reviewed and interpreted by myself: N/A External documents reviewed: N/A Test considered but not ordered:N/A ED course: Vital stable, slight dry mucosal membranes with vomiting diarrhea. Lightheaded symptoms. EKG ordered, labs ordered fluids and antiemetics. COVID flu and RSV sent. 0930: Labs slight hypokalemia. Normal renal function. Normal white count. hCG negative. EKG normal. Clinically feeling better tolerating p.o. fluids and potassium was replaced. COVID flu and RSV are negative. Discussed viral syndrome. Discussed continued oral hydration at home. Luz sent to her pharmacy. She is concerned with recurrent nausea and vomiting symptoms. I will refer her to GI as an outpatient. Re-evaluation: stable Disposition discussed with patient/family/significant other: Case discussed with consulting clinician: N/A This note was generated with [employer] dictation software. It may contain incorrect words, spelling, and punctuation that were not noted in checking the note before signing. Lab Data Labs: Laboratory Results - last 24 hr 01/28/24 07:35 WBC 9.1 RBC 4.68 Hgb 13.3 Hct 40.2 MCV 85.9 MCH 28.4 MCHC 33.1 RDW Std Deviation 41.6 RDW Coeff of Carley 13.2 Plt Count 303 MPV 8.6 Immature Gran % (Auto) 0.600 Neut % (Auto) 70.7 H Lymph % (Auto) 20.2 [place] % (Auto) 7.0 Eos % (Auto) 0.9 Baso % (Auto) 0.6 Absolute Neuts (auto) 6.4 Absolute Lymphs (auto) 1.83 Nucleated RBC % 0 Sodium 138 Potassium 3.3 L Chloride 106 Carbon Dioxide 27.0 Anion Gap 5 BUN 10 Creatinine 0.95 Estim Creat Clear Calc 98.95 Est GFR (MDRD) Af Amer 90 Est GFR (MDRD) Non-Af 74 BUN/Creatinine Ratio 10.5 Glucose 112 H Calcium 8.7 Serum , Qual NEGATIVE Discharge Plan Triage Chief Complaint: Dizziness ED Provider: Ousmane Wallis Dx/Rx/DC Orders Clinical Impression: Nausea vomiting and diarrhea, Light-headed, Hypokalemia, Acute viral syndrome Instructions: ED Viral Syndrome (Adult), ED Vomit Diarrhea Nonspec Adult Prescriptions: New ondansetron 4 mg tablet,disintegrating 4 mg PO Q8H PRN PRN (Reason: Nausea) Qty: 10 0RF No Action Mirena 20 mcg/24 hours (8 yrs) 52 mg intrauterine device 1 device intrauterine ONCE Rx Instructions: as a single dose sertraline [Zoloft] 50 mg tablet 50 mg PO DAILY Qty: 90 4RF valacyclovir [Valtrex] 1 gram tablet 1,000 mg PO BID PRN probiotic PO cholecalciferol (vitamin D3) 50 mcg (2,000 unit) capsule 50 mcg PO DAILY lidocaine 4 % gel 1 applic topical BID-QID PRN (Reason: pain) Qty: 30 1RF Eliquis 5 mg tablet 5 mg PO BID Qty: 180 1RF spironolactone 100 mg tablet 100 mg PO DAILY Qty: 90 4RF Primary Care Provider: Kiara Hernandez Referrals: Kiara Hernandez MD [Primary Care Provider] - 1 Week Brandon Fam DO [Med Staff - Active Staff] - 1-2 Weeks Activity Restrictions/Additional Instructions: COVID flu and RSV negative. Labs stable slight hypokalemia potassium 3.3. Continue oral fluids for hydration. Use Zofran as needed. Follow-up with your doctor. With your concerns of recurrent vomiting issues, he may follow-up with GI, Dr. Fam. Print Language: Welsh Disposition Disposition: Home, Self Care Discharge Date/Time: 01/28/24 10:13
[2024-01-28 07:45] LABS: Absolute Lymphocyte Count 1.83 X10^3/uL (0.83-4.51); Absolute Neutrophil Count 6.4 X10^3/uL (2.0-7.7); Basophil# 0.05 X10^3/uL; Basophil% 0.6 % (0-1); Eosinophil# 0.08 X10^3/uL; Eosinophils% 0.9 % (0-5); Hematocrit 40.2 % (37-47); Hemoglobin 13.3 g/dL (12.0-15.0); Lymphocyte # 1.83 X10^3/ul (0.83-4.51); Lymphocyte % 20.2 % (19-41); Mean Corp Hgb Conc 33.1 g/dL (32-36); Mean Corpuscular Hgb 28.4 pg (27.0-32.0); Mean Corpuscular Volume 85.9 fL (81-99); Mean Platelet Vol. 8.6 fl (6.2-12.0); Monocyte# 0.63 X10^3/uL; NRBC Flagged by Analyzer 0 % (0-5); Neutrophil # 6.41 X10^3/uL (2.7-7.7); Neutrophil % 70.7 % (47-70); Platelet Count 303 K/mm3 (150-450); RBC Distribution Width CV 13.2 % (11.6-14.6); RBC Distribution Width SD 41.6 fl (35.1-43.9); Red Blood Count 4.68 M/mm3 (4.2-5.4); White Blood Count 9.1 K/mm3 (4.4-11.0)
[2024-01-28] MEDS: Ondansetron 4 MG/2 ML Vial IV (07:57)
[2024-01-28] MEDS: 0.9% Normal Saline (1000mL) 1,000 ML 1000 ML IV (07:57)
[2024-01-28 08:00] LABS: Internal QC Validated? YES +Cl - CLEAR BKGD; Pregnancy, Serum, hCG Quali. NEGATIVE Negative
[2024-01-28 08:04] LABS: Anion Gap 5 (5-15); BUN 10 mg/dL (7-18); BUN/Creat Ratio 10.5 RATIO (10-20); Calcium,Total 8.7 mg/dL (8.5-10.1); Chloride 106 mmol/L (98-107); Creatinine, Serum 0.95 mg/dL (0.55-1.02); EST Glomerular Filtration Rate 74 mL/min (>60); Est Glom Filt Rate - Afr Amer 90 mL/min (>60); Estimated Creatinine Clearance 98.95 ml/min; Glucose 112 mg/dL (74-106); Potassium 3.3 mmol/L (3.5-5.1); Sodium Level 138 mmol/L (136-145)
[2024-01-28] MEDS: Potassium Chloride Oral Tablet 20 MEQ 40 MEQ PO (09:03)
[2024-01-28] MEDS: Acetaminophen 500 MG Tablet 1000 MG PO (09:04)
[2024-01-28 09:07] VITALS: BP 116/71; PULSE 81; RESP 15; O2SAT 95
== END 2024-01-28 10:13 | disposition home or self-care (01) ==
PROVIDERS: Emergency Provider Emergency Medicine; PCP Internal Medicine; Visit Provider Emergency Medicine
DX: R11.2 Nausea with vomiting, unspecified (principal); R19.7 Diarrhea, unspecified; R42 Dizziness and giddiness; E87.6 Hypokalemia; B34.9 Viral infection, unspecified; Z87.891 Personal history of nicotine dependence; Z86.718 Personal history of other venous thrombosis and embolism
CPT/HCPCS: 80048; 84703; 85025; 87631; 93005; 96361; 96374; 99285; J7030; A4216; J2405

== ENCOUNTER → 2024-01-31 | Outpatient (CLI) | payer OTHER, SELFPAY ==
--- NOTE | 2024-01-31 10:22 | US_ITS ---
STUDY: ABDOMINAL ULTRASOUND - RIGHT UPPER QUADRANT REASON FOR VISIT: Female, 28 years old. ABDOMEN PAIN Nausea vomiting bloating TECHNIQUE: Ultrasound evaluation of the right upper quadrant was performed with real-time and static hutton-scale imaging. TECHNICAL QUALITY: Adequate. COMPARISON: None FINDINGS: Liver: There is increased echogenicity consistent with fatty infiltration. The bile ducts are within normal limits. There is hepatic color flow. The direction of portal flow is hepatopetal. There is no demonstrated mass lesion. Gallbladder: Normal distended gallbladder. The gallbladder wall measures 1.5 mm. There is a negative sonographic England''s sign. There is no pericholecystic fluid. There is biliary sludge dependent within the gallbladder vs small gallstones. Common Bile Duct (C.B.D.): The common bile duct measures ( in mm): 3.9 Pancreas: Normal size of the head, body of the pancreas. There is normal echogenicity of the pancreas. There is no demonstrated pancreatic mass or cyst. Right Kidney: Normal size of the right kidney. The right kidney measures 10.8 cm. . Normal renal cortex. There is no demonstrated renal mass or cyst. There is no right hydronephrosis. Aorta: It is not visualized. There is too much overlying bowel gas. . US/Gallbladder IMPRESSION: There is biliary sludge dependent within the gallbladder vs small gallstones. Fatty liver. Electronically Signed: Michael Lopez MD at 16:50 EDT ,
== END | disposition home or self-care (01) ==
LOC: US 10:21
PROVIDERS: PCP Internal Medicine; Referring Provider Internal Medicine; Visit Provider Internal Medicine
DX: R14.0 Abdominal distension (gaseous) (principal); R11.2 Nausea with vomiting, unspecified
CPT/HCPCS: 76705

== ENCOUNTER → 2024-03-03 | Outpatient (CLI) | payer OTHER, SELFPAY | END | disposition home or self-care (01) | PROVIDERS: PCP Internal Medicine; Referring Provider Internal Medicine; Visit Provider Internal Medicine | DX: R14.0 Abdominal distension (gaseous) (principal); R11.2 Nausea with vomiting, unspecified; E66.9 Obesity, unspecified | CPT/HCPCS: 78227; A9537; J2805 ==

== ENCOUNTER → 2024-04-17 | Outpatient (CLI) | payer OTHER, SELFPAY ==
[2024-04-17 09:20] LABS: Absolute Lymphocyte Count 2.09 X10^3/uL (0.83-4.51); Absolute Neutrophil Count 5.2 X10^3/uL (2.0-7.7); Basophil# 0.07 X10^3/uL; Basophil% 0.9 % (0-1); Eosinophil# 0.14 X10^3/uL; Eosinophils% 1.7 % (0-5); Hematocrit 40.7 % (37-47); Hemoglobin 13.8 g/dL (12.0-15.0); Lymphocyte # 2.09 X10^3/ul (0.83-4.51); Lymphocyte % 25.6 % (19-41); Mean Corp Hgb Conc 33.9 g/dL (32-36); Mean Corpuscular Hgb 28.8 pg (27.0-32.0); Monocyte# 0.64 X10^3/uL; Monocyte% 7.8 % (0-10); NRBC Flagged by Analyzer 0 % (0-5); Neutrophil # 5.21 X10^3/uL (2.7-7.7); Neutrophil % 63.6 % (47-70); Platelet Count 332 K/mm3 (150-450); RBC Distribution Width CV 13.4 % (11.6-14.6); RBC Distribution Width SD 41.8 fl (35.1-43.9); Red Blood Count 4.79 M/mm3 (4.2-5.4); White Blood Count 8.2 K/mm3 (4.4-11.0)
[2024-04-17 09:53] LABS: ALB/GLOB Ratio 1.1 RATIO (0.9-2.4); AST(SGOT) 14 U/L (15-37); Alanine Aminotransfer ALT/SGPT 22 U/L (13-56); Albumin, Serum 3.6 g/dL (3.2-5.0); Alkaline Phosphatase 67 U/L (45-117); Anion Gap 2 (5-15); BUN 9 mg/dL (7-18); BUN/Creat Ratio 10.4 RATIO (10-20); CRP 3.59 mg/L (0.0-3.0); Calcium,Total 8.8 mg/dL (8.5-10.1); Chloride 108 mmol/L (98-107); Creatinine, Serum 0.86 mg/dL (0.55-1.02); EST Glomerular Filtration Rate 83 mL/min (>60); Est Glom Filt Rate - Afr Amer 101 mL/min (>60); Estradiol 47.9 pg/mL; Free T3 2.8 pg/mL (2.18-3.98); Globulin 3.4 g/dL (2.2-4.2); Glucose 97 mg/dL (74-106); Luteinizing Hormone 11.7 mIU/mL; Potassium 3.7 mmol/L (3.5-5.1); Sodium Level 138 mmol/L (136-145); T4 Free Direct 1.42 ng/dL (0.76-1.46)
[2024-04-23 09:07] LABS: Testosterone, % Free 3.25 % (0.50-2.80); Testosterone, Free 2.41 ng/dL (0.10-0.85); Testosterone, Total 74 ng/dL (13-71)
== END | disposition home or self-care (01) ==
LOC: LAB 08:42
PROVIDERS: PCP Internal Medicine; Referring Provider Internal Medicine; Visit Provider Internal Medicine
DX: R42 Dizziness and giddiness (principal); R76.0 Raised antibody titer; E78.6 Lipoprotein deficiency; E04.2 Nontoxic multinodular goiter; E28.2 Polycystic ovarian syndrome; R00.2 Palpitations; R14.0 Abdominal distension (gaseous)
CPT/HCPCS: 36415; 80053; 82533; 82670; 83001; 83002; 84402; 84403; 84439; 84443; 84481; 85025; 86140

== ENCOUNTER → 2024-05-20 | Outpatient (CLI) | payer OTHER, SELFPAY ==
--- NOTE | 2024-05-20 07:27 | MRI_ITS ---
STUDY: MRI BRAIN WITHOUT CONTRAST (ATTENTION INTERNAL AUDITORY CANALS - I.A.C.''s) REASON FOR EXAM: Female, 29 years old. Dizziness, attention IAC TECHNIQUE: Standardized multiplanar fat and water weighted pulse sequences were obtained. COMPARISON: None. FINDINGS: Normal bilateral internal auditory canals. There is no demonstrated intracanalicular or cisternal vestibular schwannoma (acoustic neuroma) on this unenhanced examination. Normal visualized bilateral cochlea, vestibules and semicircular canals. Normal bilateral mastoid air cells. Normal midbrain, ric and medulla. Normal cerebellum. Normal basal cisterns. Normal size of the ventricles and extra-axial spaces for the patient''s age. Normal white matter tracts of the supratentorial brain. Normal bilateral basal ganglia. Normal thalami. There is no extra-axial fluid accumulation. Normal flow voids within the major intracranial circulation suggesting patency by spin echo criteria. Normal sella turcica, pituitary gland, infundibular stalk, optic chiasm and hypothalamus. Normal tectal plate and pineal gland. No demonstrated orbital abnormality, within the constraints of a routine brain study. Normal visualized paranasal sinuses. Normal calvarium and skull base. Normal visualized soft tissue structures. MRI/Brain without Contrast IMPRESSION: Normal unenhanced MRI of the bilateral internal auditory canals (I.A.C''s). Normal unenhanced MRI of the brain. Electronically Signed: Jon Loja MD at 16:01 EST ,
[2024-05-21 14:07] LABS: t-Transglutaminase IgA <2 U/mL (0-3)
[2024-05-22 16:08] LABS: Almond <0.10 kU/L (Class 0); Apple <0.10 kU/L (Class 0); Banana <0.10 kU/L (Class 0); Beef <0.10 kU/L (Class 0); Carrot <0.10 kU/L (Class 0); Cashew <0.10 kU/L (Class 0); Chicken <0.10 kU/L (Class 0); Chocolate <0.10 kU/L (Class 0); Codfish <0.10 kU/L (Class 0); Corn <0.10 kU/L (Class 0); Egg, Whole <0.10 kU/L (Class 0); Garlic <0.10 kU/L (Class 0); Milk (Cow) <0.10 kU/L (Class 0); Mussels <0.10 kU/L (Class 0); Onion <0.10 kU/L (Class 0); Peanut <0.10 kU/L (Class 0); Pork <0.10 kU/L (Class 0); Potato, White <0.10 kU/L (Class 0); Rice <0.10 kU/L (Class 0); Salmon <0.10 kU/L (Class 0); Shrimp <0.10 kU/L (Class 0); Soybean <0.10 kU/L (Class 0); Tuna <0.10 kU/L (Class 0); Turkey <0.10 kU/L (Class 0); Wheat <0.10 kU/L (Class 0); Yeast <0.10 kU/L (Class 0)
== END | disposition home or self-care (01) ==
PROVIDERS: Otolaryngology; PCP Internal Medicine; Referring Provider Internal Medicine; Visit Provider Internal Medicine
DX: H93.11 Tinnitus, right ear (principal); G23.8 Other specified degenerative diseases of basal ganglia; J01.00 Acute maxillary sinusitis, unspecified; K90.41 Non-celiac gluten sensitivity; R11.2 Nausea with vomiting, unspecified
CPT/HCPCS: 36415; 70551; 83516; 86003; 86005

== ENCOUNTER 2024-08-09 15:03 | Emergency (ER) | payer SELFPAY ==
[2024-08-09] VITALS (8 sets, daily range): BP systolic 98–145; BP diastolic 61–89; PULSE 70–85; RESP 16–18; TEMP 36.8–36.9; O2SAT 98–100; BMI 38.9
--- NOTE | 2024-08-09 15:27 | EX.ED.DYSGE1 ---
HPI History of Present Illness Chief Complaint: Dizziness Informant: patient Onset/Context/Timing Onset: Yesterday Context: Gradual Onset Timing: Continuous Quality: Off-balance Location: Head Worsened by: Nothing Relieved by: Nothing Narrative Narrative: Patient presents with dizziness that began yesterday. Patient states she feels off balance and like she might pass out. Patient states nothing makes her symptoms worse and nothing makes it better. Patient states they have been gradually getting worse. Patient states she has a history of blood clots and is on Eliquis for this. Patient admits to some blurry vision. Patient admits to some nausea. Patient admits to some tinnitus. Patient denies any fevers or chills. Patient denies any chest pain or shortness of breath. [facility] Medical History Tinnitus, right ear Acute maxillary sinusitis, unspecified Familial olivopontocerebellar atrophy Dizziness Gallbladder sludge Palpitations GERD (gastroesophageal reflux disease) Anxiety Multinodular goiter DVT (deep venous thrombosis) Thyroid nodule Home Medications ?Medication ?Instructions ?Recorded ?Last Taken ?Type levonorgestrel (Mirena) 1 device intrauterine ONCE 03/27/22 Unknown History probiotic PO 02/20/23 Unknown History valacyclovir 1 gram tablet 1,000 mg PO BID PRN 02/20/23 Unknown History (Valtrex) spironolactone 100 mg tablet 100 mg PO DAILY #90 tabs 08/19/23 Unknown Rx cholecalciferol (vitamin D3) 50 50 mcg PO DAILY 10/09/23 Unknown History mcg (2,000 unit) capsule amoxicillin 500 mg tablet 500 mg PO TID #30 tabs 03/30/24 Unknown Rx amoxicillin 500 mg tablet 500 mg PO TID #30 tabs 03/30/24 Unknown Rx magnesium glycinate 100 mg (as 100 mg PO QDAY 03/30/24 Unknown History glycinate) tablet meclizine 25 mg tablet 25 mg PO TID PRN dizziness #14 tabs 03/30/24 Unknown Rx phytonadione (vitamin K1) 100 mcg 100 mcg PO QDAY 03/30/24 Unknown History tablet cefuroxime axetil 500 mg tablet 500 mg PO BID #20 tabs 04/12/24 Unknown Rx apixaban 5 mg tablet (Eliquis) 5 mg PO BID #180 tabs 05/21/24 Unknown Rx diazepam 2 mg tablet 2 mg PO TID PRN PRN Vertigo #10 08/09/24 Unknown Rx TABLETS Allergy/AdvReac Type Severity Reaction Status Date / Time codeine AdvReac Unknown PT UNSURE Verified 08/09/24 15:10 OF REACTION Family History Unknown Hypertension Mother Diabetes Grandmother Neuropathy Surgical History History of appendectomy delivery delivered Social History household members: spouse housing: house Smoking Status: Former smoker quit date: 02/26/18 Tobacco: How many years used: 4 alcohol intake: never substance use type: does not use caffeine: Yes what type of physical activity do you participate in: walking seatbelt use: always do you feel safe at home: Yes additional social history: single- works at [employer] ROS ED Constitutional Constitutional ED: Denies chills or fever(s) Eyes Eyes: Reports blurry vision; Denies diplopia ENT ENT ED: Denies rhinorrhea or sore throat Cardiovascular Cardiovascular: Denies chest pain or palpitations Respiratory/Chest Respiratory/Chest: Denies cough or dyspnea Gastrointestinal Gastrointestinal: Reports nausea; Denies vomiting Genitourinary Genitourinary ED: Denies dysuria or hematuria Musculoskeletal Musculoskeletal: Reports neck pain; Denies back pain Integumentary Denies abscess or rash Neurologic Neurologic: Reports headache(s); Denies weakness Allergic/Immunologic Allergic/Immunologic ED: Denies mouth swelling or urticaria EXAM Physical Exam Const Vital Signs: 08/09/24 15:05 08/09/24 15:29 08/09/24 16:09 Temperature 98.3 F Temperature Source Oral Pulse Rate 85 78 Pulse Rate [Lying] Pulse Rate [Sitting (for 1 minute prior to obtaining)] Pulse Rate [Standing (for 1 minute prior to obtaining)] Respiratory Rate 16 16 Blood Pressure 145/85 H 117/68 120/87 H Blood Pressure [Lying] Blood Pressure [Sitting (for 1 minute prior to obtaining)] Blood Pressure [Standing (for 1 minute prior to obtaining)] Blood Pressure Mean 105 84 98 Blood Pressure Mean [Lying] Blood Pressure Mean [Sitting (for 1 minute prior to obtaining)] Blood Pressure Mean [Standing (for 1 minute prior to obtaining)] Pulse Ox 100 98 98 Oxygen Delivery Method Room Air 08/09/24 17:00 08/09/24 17:16 08/09/24 18:00 Temperature Temperature Source Pulse Rate 78 78 Pulse Rate [Lying] 78 Pulse Rate [Sitting (for 1 minute prior to obtaining)] 78 Pulse Rate [Standing (for 1 minute prior to obtaining)] 80 Respiratory Rate 18 16 Blood Pressure 108/89 H 103/65 Blood Pressure [Lying] 104/69 Blood Pressure [Sitting (for 1 minute prior to obtaining)] 105/61 Blood Pressure [Standing (for 1 minute prior to obtaining)] 98/79 Blood Pressure Mean 95 77 Blood Pressure Mean [Lying] 80 Blood Pressure Mean [Sitting (for 1 minute prior to obtaining)] 75 Blood Pressure Mean [Standing (for 1 minute prior to obtaining)] 85 Pulse Ox 98 98 Oxygen Delivery Method 08/09/24 19:00 08/09/24 20:00 Temperature 98.4 F Temperature Source Pulse Rate 78 70 Pulse Rate [Lying] Pulse Rate [Sitting (for 1 minute prior to obtaining)] Pulse Rate [Standing (for 1 minute prior to obtaining)] Respiratory Rate 16 Blood Pressure 106/78 124/86 H Blood Pressure [Lying] Blood Pressure [Sitting (for 1 minute prior to obtaining)] Blood Pressure [Standing (for 1 minute prior to obtaining)] Blood Pressure Mean 87 98 Blood Pressure Mean [Lying] Blood Pressure Mean [Sitting (for 1 minute prior to obtaining)] Blood Pressure Mean [Standing (for 1 minute prior to obtaining)] Pulse Ox 98 99 Oxygen Delivery Method Positive well nourished and well developed Constitutional Narrative: BMI is 38.9 General Appearance ED: well developed and NAD HEENT Reports TM's clear and moist mucous membranes Tympanic Membrane ED: Yes TM's clear bilateral Eyes PERRL and EOMs intact bilaterally Eyes Narrative: Funduscopic examination was benign Neck supple and no JVD Resp normal respiratory effort and clear to auscultation bilaterally Cardio regular rate and regular rhythm GI non-tender and non-distended Palpation: soft Neuro oriented x3, CN's II-XII intact bilaterally and no sensory deficits noted Neuro Narrative: Patient had a positive Haroldo-Hallpike maneuver Sensorium / Orientation: alert Motor Exam: strength 5/5 throughout Psych mental status grossly normal MDM MDM MDM Narrative Medical decision making narrative: Differential diagnosis includes intracranial bleeding, stroke, peripheral vertigo, electrolyte abnormality, coagulopathy, urinary tract infection, , and dehydration. CT scan of the brain will be obtained to assess for intracranial bleeding and stroke. EKG will be obtained to assess for cardiac dysrhythmia and cardiac ischemia. CBC will be obtained to assess for leukocytosis and anemia. Basic metabolic profile will be obtained to assess for electrolyte abnormality renal function. PT with INR and PTT will be obtained to assess for coagulopathy. Serum hCG will be obtained to assess for . Urinalysis will be obtained to assess for urinary tract infection and hematuria. Lab Data Attestation: I reviewed the patient's lab results. Lab results narrative: CBC was reviewed and was within normal limits. PT with INR and PTT were reviewed and were within normal limits. Basic metabolic profile was reviewed and was within normal limits. Serum hCG was reviewed and was negative. Urinalysis was reviewed. There is no evidence of urinary tract infection or hematuria. Labs: Laboratory Results - last 24 hr 08/09/24 08/09/24 15:25 15:45 WBC 9.4 RBC 4.82 Hgb 14.1 Hct 42.1 MCV 87.3 MCH 29.3 MCHC 33.5 RDW Std Deviation 41.5 RDW Coeff of Carley 13.0 Plt Count 368 MPV 8.6 Immature Gran % (Auto) 0.300 Neut % (Auto) 68.4 Lymph % (Auto) 22.6 [place] % (Auto) 6.9 Eos % (Auto) 1.2 Baso % (Auto) 0.6 Absolute Neuts (auto) 6.5 Absolute Lymphs (auto) 2.13 Nucleated RBC % 0 PT 14.3 INR 1.1 APTT 28.7 Sodium 138 Potassium 3.8 Chloride 101 Carbon Dioxide 26.3 Anion Gap 10 BUN 12 Creatinine 1.04 Estim Creat Clear Calc 94.31 Est GFR (MDRD) Non-Af 75 BUN/Creatinine Ratio 11.9 Glucose 106 H Calcium 9.6 Serum , Qual NEGATIVE Urine Color Yellow Urine Clarity Clear Urine pH 6.5 Ur Specific [place] 1.010 Urine Protein 15 H Urine Glucose (UA) Normal Urine Ketones Negative Urine Occult Blood Negative Urine Nitrite Negative Urine Bilirubin Negative Urine Urobilinogen Normal Ur Leukocyte Esterase Negative Urine RBC 0 SEEN Urine WBC 0 SEEN Ur Squamous Epith Cells 0-5 SEEN Urine Bacteria RARE Urine Mucus 0 SEEN Radiography Diagnostic Testing: Clinical Impression(s) from Imaging Studies Brain CT 08/09/24 15:45 IMPRESSION: NO ACUTE FINDINGS Reading Location: [facility] [place] CT scan of the brain was obtained. There is no acute intracranial abnormality. This was interpreted by the radiologist and was also independently reviewed by myself. EKG Initial EKG: Attestation: I personally reviewed and interpreted this EKG as follows: Interpretation: Sinus Rhythm (80) and No Acute Injury Pattern Comments: EKG was obtained. On my independent interpretation, it showed a normal sinus rhythm with a rate of 80. AK interval, QRS interval, and QTc intervals were all normal. [place] was normal. There are no acute ST or T wave changes. Prior EKG tracings: available for review Prior: Unchanged (01/28/2024) Treatment and Re-Evaluation :: Orthostatic vital signs were obtained and were within normal limits. Patient was given a dose of Valium here. Patient had minimal improvement with this. Patient was given a dose of meclizine. Patient states that it did not change her dizziness. Patient was given a repeat dose of Valium. Patient feels better after this. Patient was given a prescription for Valium. Patient was instructed to drink plenty of fluids. Patient was instructed to follow-up with her primary care physician in 3 to 5 days. Patient was instructed to return if worse in any way. Patient understood and was agreeable with the plan. All questions were answered. Discharge Plan Triage Chief Complaint: Dizziness ED Provider: Víctor Colon Dx/Rx/DC Orders Clinical Impression: Dizziness, Factor V Leiden mutation Instructions: ED Dizziness, Uncertain Cause, ED Vertigo, Unspecified Prescriptions: New diazepam [diazepam] 2 mg tablet 2 mg PO TID PRN PRN (Reason: Vertigo) Qty: 10 0RF No Action Mirena 20 mcg/24 hours (8 yrs) 52 mg intrauterine device 1 device intrauterine ONCE Rx Instructions: as a single dose valacyclovir [Valtrex] 1 gram tablet 1,000 mg PO BID PRN probiotic PO cholecalciferol (vitamin D3) 50 mcg (2,000 unit) capsule 50 mcg PO DAILY phytonadione (vitamin K1) 100 mcg tablet 100 mcg PO QDAY magnesium glycinate 100 mg tablet 100 mg PO QDAY amoxicillin 500 mg tablet 500 mg PO TID Qty: 30 0RF amoxicillin 500 mg tablet 500 mg PO TID Qty: 30 0RF meclizine 25 mg tablet 25 mg PO TID PRN (Reason: dizziness) Qty: 14 0RF spironolactone 100 mg tablet 100 mg PO DAILY Qty: 90 4RF cefuroxime axetil 500 mg tablet 500 mg PO BID Qty: 20 0RF Eliquis 5 mg tablet 5 mg PO BID Qty: 180 1RF Primary Care Provider: Kiara Hernandez Referrals: Kiara Hernandez MD [Primary Care Provider] - 3-5 Days Print Language: Kyrgyz Disposition Disposition: Home, Self Care
--- NOTE | 2024-08-09 15:28 | EKG12_ITS ---
Test Reason : DIZZY Blood Pressure : */* mmHG Vent. Rate : 80 BPM Atrial Rate : 80 BPM P-R Int : 186 ms QRS Dur : 98 ms QT Int : 362 ms P-R-T Axes : 62 40 43 degrees QTcB Int : 417 ms Normal sinus rhythm Incomplete right bundle branch block Borderline ECG Confirmed by Elgin Hernandez ([id number]), features editor ERWIN MALAVE ([id number]) on 08/10/2024 11:30:28 AM Referred By: Confirmed By: Elgin Hernandez
[2024-08-09] MEDS: diazePAM 5 MG Tablet 2.5 MG PO ×2 (15:37→20:08)
--- NOTE | 2024-08-09 15:45 | CT_ITS ---
PROCEDURE: BRAIN/HEAD WITHOUT CONTRAST 08/09/2024 REASON FOR EXAM: DIZZINESS Base of neck pain, double vision, factor 5 Leiden, on Eliquis TECHNIQUE: Head CT without intravenous contrast. Coronal and Sagittal reconstruction series were provided. One or more dose reduction techniques were used (e.g., Automated exposure control, adjustment of the mA and/or kV according to patient size, use of iterative reconstruction technique. RADIATION DOSE SUMMARY: CTDlvol: 44.99 mGy DLP: 779.2 mGycm COMPARISON: None FINDINGS: Brain: No intracranial hemorrhage, mass effect, midline shift. Sultana-white matter differentiation maintained without CT findings of acute infarct. No cerebral edema or sulcal effacement. CSF Spaces: Normal Sinuses/Mastoids: Clear at visualized levels Bones: Calvarium appears intact. CT/Brain/Head without Contrast IMPRESSION: NO ACUTE FINDINGS [facility] [place]
[2024-08-09 15:55] LABS: Mucous, Urine 0 SEEN /hpf (<or=2+); Red Blood Cells-Urine 0 SEEN /hpf (0-5); White Blood Cells 0 SEEN /hpf (0-5)
[2024-08-09 15:56] LABS: Absolute Lymphocyte Count 2.13 X10^3/uL (0.83-4.51); Absolute Neutrophil Count 6.5 X10^3/uL (2.0-7.7); Basophil# 0.06 X10^3/uL; Basophil% 0.6 % (0-1); Eosinophil# 0.11 X10^3/uL; Eosinophils% 1.2 % (0-5); Hematocrit 42.1 % (37-47); Hemoglobin 14.1 g/dL (12.0-15.0); Lymphocyte # 2.13 X10^3/ul (0.83-4.51); Lymphocyte % 22.6 % (19-41); Mean Corp Hgb Conc 33.5 g/dL (32-36); Mean Corpuscular Hgb 29.3 pg (27.0-32.0); Mean Corpuscular Volume 87.3 fL (81-99); Mean Platelet Vol. 8.6 fl (6.2-12.0); Monocyte# 0.65 X10^3/uL; Monocyte% 6.9 % (0-10); NRBC Flagged by Analyzer 0 % (0-5); Neutrophil # 6.46 X10^3/uL (2.7-7.7); Neutrophil % 68.4 % (47-70); Platelet Count 368 K/mm3 (150-450); RBC Distribution Width SD 41.5 fl (35.1-43.9); Red Blood Count 4.82 M/mm3 (4.2-5.4); White Blood Count 9.4 K/mm3 (4.4-11.0)
[2024-08-09 16:06] LABS: Glucose, Dipstick Normal (Normal); Ketone-Dipstick Negative (Negative); Leukocyte Esterase-Dipstick Negative /ul (Negative); Nitrite-Dipstick Negative (Negative); Occult Blood-Urine Negative /ul (Negative); Protein-Dipstick 15 mg/dl (Negative); Urine Bilirubin Dipstick Negative (Negative); Urine Urobilinogen Normal (Normal); Urine pH 6.5 (5.0 - 8.0)
[2024-08-09 16:10] LABS: Internal QC Validated? YES +Cl - CLEAR BKGD; Pregnancy, Serum, hCG Quali. NEGATIVE Negative; Record Kit Lot#, Serum Preg. 929381
[2024-08-09 16:11] LABS: Color, Urine Yellow (Yellow); Urine Clarity Clear (Clear)
[2024-08-09 16:16] LABS: Anion Gap 10 (5-15); BUN 12 mg/dL (4-19); BUN/Creat Ratio 11.9 RATIO (10-20); Calcium,Total 9.6 mg/dL (7.6-11.0); Carbon Dioxide 26.3 mmol/L (21.0-32.0); Chloride 101 mmol/L (98-108); Creatinine, Serum 1.04 mg/dL (0.70-1.20); EST Glomerular Filtration Rate 75 (>60); Estimated Creatinine Clearance 94.31 ml/min (50-250); Glucose 106 mg/dL (70-99); Potassium 3.8 mmol/L (3.3-5.1); Sodium Level 138 mmol/L (133-145)
[2024-08-09 17:45] LABS: Squamous Epithelial Cells - UA 0-5 SEEN /hpf (5-10)
[2024-08-09 17:46] LABS: Bacteria RARE /hpf (None Seen)
[2024-08-09] MEDS: Meclizine HCl 25 MG Tablet PO (18:07)
[2024-08-09 18:52] LABS: International Normalized Ratio 1.1; Prothrombin Time (Protime)PT. 14.3 SECONDS (11.7-14.9)
[2024-08-09 18:53] LABS: Partial Thromboplast Time 28.7 Seconds (24.1-36.2)
== END 2024-08-09 20:45 | disposition home or self-care (01) ==
PROVIDERS: Emergency Provider Emergency Medicine; PCP Internal Medicine; Visit Provider Emergency Medicine
DX: R42 Dizziness and giddiness (principal); D68.51 Activated protein C resistance; Z79.01 Long term (current) use of anticoagulants; Z86.718 Personal history of other venous thrombosis and embolism; Z87.891 Personal history of nicotine dependence
CPT/HCPCS: 70450; 80048; 81001; 84703; 85025; 85610; 85730; 93005; 99285; A4216

== ENCOUNTER → 2025-02-10 | Outpatient (CLI) | payer BC, SELFPAY ==
[2025-02-10 10:42] LABS: Hematocrit 45.6 % (37-47); Hemoglobin 14.9 g/dL (12.0-15.0); Immature Granulocytes Count 0.010 X10^3/uL (0.0-0.0); Mean Corp Hgb Conc 32.7 g/dL (32-36); Mean Corpuscular Volume 88.5 fL (81-99); Mean Platelet Vol. 8.7 fl (6.2-12.0); NRBC Flagged by Analyzer 0 % (0-5); Platelet Count 393 K/mm3 (150-450); RBC Distribution Width CV 13.5 % (11.6-14.6); RBC Distribution Width SD 44.0 fl (35.1-43.9); Red Blood Count 5.15 M/mm3 (4.2-5.4); White Blood Count 7.6 K/mm3 (4.4-11.0)
[2025-02-10 10:54] LABS: D-Dimer Quantitative (DVT/PE) < 0.27 FEU/ug/m (0.27-0.49)
--- OUTSIDE RECORDS SUMMARY | 2025-02-10 11:00 | XMS RPT_ITS | CCD ---
Author Organization [facility] Care Team Providers Care Pediatric Nephrologist Name Role Phone ALEX SOW Unavailable Unavailable Dr. Santana Hernandez Primary Care Provider Dr. Santana Hernandez Attending Provider [phone] Dr. Santana Hernandez Referring Provider [phone] Dr. Prem Olivo Attending Provider Dr. Sami Amaral Referring Provider MELO Perez NP Attending Provider [phone] Dr. Santana Hernandez Primary Care Provider Dr. Santana Hernandez Referring Provider [phone] Dr. Virgie Smallwood Attending Provider [phone] Dr. Santana Hernandez Primary Care Provider Dr. Santana Hernandez Referring Provider [phone] Dr. Virgie Smallwood Attending Provider [phone] MELO Perez NP Attending Provider [phone] Unavailable Primary Care Provider Dr. Santana Perales Primary Care Provider Dr. Víctor Nina Attending Provider Dr. Santana Hernandez Attending Provider Dr. Santana Hernandez Primary Care Provider Dr. Santana Hernandez Attending Provider Unavailable Primary Care Provider Dr. Santana Perales MD Primary Care Provider Dr. Santana Hernandez MD Attending Provider Mary WILCOX, Dr. Craig Referring Provider Magi WILCOX, Dr. Johnson Other Provider [phone] Isaiah FERGUSON, Dr. Renee Emergency Provider [phone] Mary, Santana Primary Care Unavailable Mary, Santana Attending Unavailable Mary, Santana Primary Care Unavailable Mary, Santana Referring Unavailable Mary, Santana Attending Unavailable Mary, Santana Primary Care Unavailable Víctor Colon Attending Unavailable Mary, Santana Primary Care Unavailable Mary, Santana Attending Unavailable Mary, Santana Primary Care Unavailable Mary, Santana Referring Unavailable Chris RIVAS, Meryl Attending Unavailable Mary, Santana Attending Unavailable Mary, Santana Referring Unavailable Mary, Santana Primary Care Unavailable Mary, Santana Primary Care Unavailable Ousmane Wallis Attending Unavailable Mary, Santana Attending Unavailable Mary, Santana Referring Unavailable Mary, Santana Primary Care Unavailable Mary, Santana Attending Unavailable Mary, Santana Referring Unavailable Mary, Santana Primary Care Unavailable Mary, Santana Attending Unavailable Mary, Santana Primary Care Unavailable Mary, Santana Referring Unavailable Alex Sow Consulting Unavailable Mary, Santana Attending Unavailable Mary, Santana Primary Care Unavailable NURSE, IMB Attending Unavailable Mary, Santana Primary Care Unavailable Mary, Santana Referring Unavailable Mary, Santana Primary Care Unavailable Stanley Rose Attending Unavailable Mary, Santana Primary Care Unavailable Mary, Santana Attending Unavailable Mary, Santana Primary Care Unavailable Mary, Santana Referring Unavailable Virgie Smallwood Attending Unavailabl e Mary, Santana Primary Care Unavailable MarySantana Attending Unavailable Santana Hernandez MD Unavailable Santana Hernandez MD Primary Care Provider TYESHA GOMEZ Attending Unavailable SANTANA HERNANDEZ Primary Care Unavailable SANTANA HERNANDEZ M Primary Care Unavailable KEN OHARA JR Attending Unavailable KEN OHARA JR Referring Unavailable SANTANA HERNANDEZ Primary Care Unavailable Allergies Allergy Classification Reported Allergen(s) Allergy Type Date of Onset Reaction(s) Facility (11 sources) Codeine; Translations: [CODEINE] Drug Allergy Other: See Comments [facility] (1 source) Codeine Drug Allergy [facility] Repository Medications Current Medications Medication Drug Class(es) Dates Sig (Normalized) Sig (Original) apixaban 5 mg oral tablet (17 sources) Factor Xa Inhibitor Start: 03-17-2023 End: 05-21-2024 take 1 tablet by mouth twice daily Apixaban (Eliquis) 5 mg tablet Active 5 mg PO TWICE A DAY 180 May 21, 2024 1:42pm Start: 02-17-2023 End: 03-17-2023 take 2 tablets by mouth twice daily, then take 1 tablet by mouth twice daily Apixaban (Eliquis Dvt-Pe Treat 30d Start) 5 mg (74 tabs) tablets,dose pack Discontinued 5 mg PO TWICE A DAY 74 February 17, 2023 4:06pm March 17, 2023 3:44pm Take 10 mg oral twice daily x 7 days then 5 mg oral twice daily thereafter. Start: 08-24-2020 End: 05-30-2021 take 1 tablet by mouth twice daily Apixaban (Eliquis Dvt-Pe Treat 30d Start) 5 mg (74 tabs) tablets,dose pack Discontinued 5 mg PO TWICE A DAY 74 August 24, 2020 12:00am May 30, 2021 9:33am cholecalciferol 0.05 mg oral capsule (1 source) Vitamin D Start: 10-09-2023 take 1 capsule by mouth once daily Cholecalciferol (Vitamin D3) 50 mcg (2,000 unit) capsule Active 50 ug PO DAILY October 09, 2023 12:00am diazePAM 2 mg oral tablet (1 source) Benzodiazepine Start: 08-09-2024 take 1 tablet by mouth three times daily as needed Diazepam 2 mg tablet Active 2 mg PO 3 TIMES DAILY NEEDED as needed for Vertigo August 09, 2024 12:00am doxycycline hyclate 100 mg oral tablet (1 source) Tetracycline-class Drug Start: 04-13-2024 End: 04-20-2024 take 1 tablet by mouth twice daily doxycycline (VIBRA-TABS) 100 mg tablet Indications: Rhinosinusitis Take 1 tablet by mouth two times a day for 7 days. 14 tablet 04/13/2024 04/20/2024 Active fluticasone propionate 0.05 mg/actuat metered dose nasal spray (1 source) Corticosteroid Start: 04-13-2024 End: 05-13-2024 take 2 spray(s) by mouth once daily fluticasone (FLONASE) 50 mcg/actuation nasal spray Indications: Rhinosinusitis Use 2 Sprays in each nostril once daily. Rinse mouth after use. 1 Each 04/13/2024 05/13/2024 Active levonorgestrel 0.796599 mg/hr intrauterine system (10 sources) Progestin, Progestin-containin g Intrauterine Device Start: 03-27-2022 Levonorgestrel (Mirena) 20 mcg/24 hours (8 yrs) 52 mg intrauterine device Active 1 NMA INTRA-UTER ONCE March 27, 2022 1:00am as a single dose Start: 03-27-2022 Levonorgestrel (Mirena) 20 mcg/24 hours (8 yrs) 52 mg intrauterine device Active 1 DEVICE INTRA-UTER ONCE March 27, 2022 1:00am as a single dose Start: 06-29-2018 End: 08-10-2020 Levonorgestrel (Mirena) 20 m cg/24 hr (5 years) intrauterine device Discontinued 1 NMA INTRA-UTER ONCE June 29, 2018 1:00am August 10, 2020 8:03am Start: 06-29-2018 End: 08-10-2020 Levonorgestrel (Mirena) 20 m cg/24 hr (5 years) intrauterine device Discontinued 1 DEVICE INTRA-UTER ONCE June 29, 2018 1:00am August 10, 2020 8:03am magnesium glycinate 100 mg oral tablet (1 source) Start: 03-30-2024 take 1 tablet by mouth once daily Magnesium Glycinate 100 mg tablet Active 100 mg PO daily March 30, 2024 1:00am probiotic (3 sources) Start: 02-20-2023 probiotic Active PO February 20, 2023 12:00am spironolactone 100 mg oral tablet (10 sources) Aldosterone Antagonist Start: 04-17-2022 End: 08-19-2023 take 1 tablet by mouth once daily Spironolactone 100 mg tablet Active 100 mg PO DAILY August 19, 2023 3:48pm valACYclovir 1000 mg oral tablet (6 sources) Herpesvirus Nucleoside Analog DNA Polymerase Inhibitor, Herpes Simplex Virus Nucleoside Analog DNA Polymerase Inhibitor, Herpes Zoster Virus Nucleoside Analog DNA Polymerase Inhibitor Start: 02-04-2023 End: 02-20-2023 Valacyclovir (Valtrex) 1 gram tablet Active 1000 mg PO TWICE A DAY as needed February 20, 2023 2:08pm vitamin k 0.1 mg oral tablet (1 source) Start: 03-30-2024 Phytonadione (Vitamin K1) 100 mcg tablet Active 100 ug PO daily March 30, 2024 1:00am Completed/Discontinued Medications Medication Drug Class(es) Dates Sig (Normalized) Sig (Original) acetaminophen 325 mg / oxyCODONE hydrochloride 5 mg oral tablet (5 sources) Opioid Agonist Start: 09-04-2015 End: 06-29-2018 Oxycodone-Acetamino phen 1 TABLET tablet Discontinued 1 - 2 {tbl} PO EVERY 6 HOURS NEEDED as needed for Pain September 04, 2015 12:00am June 29, 2018 9:12am Start: 09-04-2015 End: 06-29-2018 take 1 tablet by mouth every six hours as needed Oxycodone-Acetaminophen Discontinued 1 - 2 TABLET PO EVERY 6 HOURS NEEDED September 04, 2015 12:00am June 29, 2018 9:12am amoxicillin 500 mg oral tablet (5 sources) Penicillin-class Antibacterial Start: 03-30-2024 End: 11-06-2024 Amoxicillin 500 mg tablet 04/05/2024 11/06/2024 Discontinued (Course of therapy completed) Start: 01-28-2023 End: 02-07-2023 take 1 capsule by mouth twice daily amoxicillin (AMOXIL) 500 mg capsule Take 1 capsule by mouth two times a day for 10 days. 20 capsule 0 01/28/2023 02/07/2023 Active Comment on above: Take 1 capsule by mo [facility] two times a day for 10 days. cefuroxime 500 mg oral tablet (3 sources) Cephalosporin Antibacterial Start: 04-12-2024 End: 11-06-2024 cefUROXime (CEFTIN) 500 mg tablet 04/12/2024 11/06/2024 Discontinued (Course of therapy completed) Norgestimate-Ethinyl Estradiol (10 sources) Progestin, Estrogen Start: 08-10-2020 End: 09-04-2020 Norgestimate-Ethinyl Estradiol (Sprintec (28)) 0.25-35 mg-mcg tablet Discontinued 1 {tbl} PO daily August 10, 2020 8:21am September 04, 2020 8:37am Start: 08-10-2020 End: 09-04-2020 take 1 tablet by mouth once daily Norgestimate-Ethinyl Estradiol (Sprintec (28)) 0.25-35 mg-mcg tablet Discontinued 1 TABLET PO daily August 10, 2020 8:21am September 04, 2020 8:37am Start: 08-10-2020 End: 09-04-2020 take 1 tablet by mouth once daily Norgestimate-Ethinyl Estradiol (Sprintec (28)) 0.25-35 mg-mcg tablet Discontinued 1 TABLET PO daily August 10, 2020 7:21am September 04, 2020 7:37am Start: 08-10-2020 End: 08-10-2020 Norgestimate-Ethinyl Estradi ol (Sprintec (28)) 0.25-35 mg-mcg tablet Discontinued 1 {tbl} PO daily August 10, 2020 12:00am August 10, 2020 8:21am Start: 08-10-2020 End: 08-10-2020 take 1 tablet by mouth once daily Norgestimate-Ethinyl Estradiol (Sprintec (28)) 0.25-35 mg-mcg tablet Discontinued 1 TABLET PO daily August 10, 2020 12:00am August 10, 2020 8:21am Start: 08-10-2020 End: 08-10-2020 take 1 tablet by mouth once daily Norgestimate-Ethinyl Estradiol (Sprintec (28)) 0.25-35 mg-mcg tablet Discontinued 1 TABLET PO daily August 09, 2020 11:00pm August 10, 2020 7:21am fluconazole 150 mg oral tablet (1 source) Azole Antifungal Start: 01-28-2023 End: 01-28-2023 fluconazole (DIFLUCAN) 150 mg tablet Take 1 tablet by mouth one time only for 1 dose. Repeat in 3 days as needed. 2 tablet 0 01/28/2023 01/28/2023 Comment on above: Take 1 tablet by praveen one time only for 1 dose. Repeat in 3 days as needed. lidocaine 0.04 mg/mg topical gel (3 sources) Antiarrhythmic, Amide Local Anesthetic Start: 02-04-2023 End: 02-05-2024 Lidocaine 4 % gel Discontinued 1 NMA TOPICAL 2 to 4 times per day as needed for pain February 04, 2023 12:00am February 05, 2024 8:30am meclizine hydrochloride 25 mg oral tablet (3 sources) Antiemetic Start: 03-30-2024 End: 11-06-2024 take 1 tablet by mouth three times daily as needed for dizziness meclizine (ANTIVERT) 25 mg tab TAKE 1 TABLET BY MOUTH THREE TIMES A DAY NEEDED FOR DIZZINESS 03/30/2024 11/06/2024 Discontinued (Course of therapy completed) naproxen 250 mg oral tablet (5 sources) Nonsteroidal Anti-inflammatory Drug Start: 09-04-2015 End: 06-29-2018 take 2 tablets by mouth every eight hours as needed for pain Naproxen 250 MG tablet Discontinued 500 mg PO EVERY 8 HOURS NEEDED as needed for Mild Pain () September 04, 2015 12:00am June 29, 2018 9:12am Start: 09-04-2015 End: 06-29-2018 take 500 mg by mouth every eight hours as needed Naproxen Discontinued 500 MG PO EVERY 8 HOURS NEEDED September 04, 2015 12:00am June 29, 2018 9:12am norethindrone 0.35 mg oral tablet (10 sources) Start: 09-04-2020 End: 05-30-2021 take 1 tablet by mouth once daily Norethindrone (Contraceptive) (Kenia) 0.35 mg tablet Discontinued 0.35 mg PO daily September 04, 2020 12:00am May 30, 2021 9:33am start day 1 of menstrual cycle ondansetron 4 mg disintegrating oral tablet (1 source) Serotonin-3 Receptor Antagonist Start: 01-28-2024 End: 03-30-2024 take 1 tablet by mouth every eight hours as needed for nausea Ondansetron 4 mg tablet,disintegrating Discontinued 4 mg PO EVERY 8 HOURS NEEDED as needed for Nausea January 28, 2024 12:00am March 30, 2024 1:23pm Pnv,Calcium 68-Grrh-Fpfzf Acid (4 sources) Start: 01-26-2015 End: 06-29-2018 Pnv,Calcium 97-Jbyn-Recai Acid Discontinued 1 EACH PO DAILY January 26, 2015 12:00am June 29, 2018 9:12am Start: 01-26-2015 End: 06-29-2018 Pnv,Calcium 96-Mplr-Ijqhf Ac id Discontinued 1 EACH PO DAILY January 25, 2015 11:00pm June 29, 2018 8:12am Pnv,Calcium 00-Molf-Nnlhi Ac id 1 EACH tablet (1 source) Start: 01-26-2015 End: 06-29-2018 Pnv,Calcium 45-Wwpz-Aqydg Ac id 1 EACH tablet Discontinued 1 NMA PO DAILY January 26, 2015 12:00am June 29, 2018 9:12am Semaglutide (2 sources) Start: 08-29-2023 End: 09-08-2023 Semaglutide (Ozempic) 0.25 m g or 0.5 mg (2 mg/3 mL) pen injector Discontinued 0.25 mg SC EVERY WEEK August 29, 2023 12:00am September 08, 2023 9:27am Start: 08-29-2023 Semaglutide (O zempic) 0.25 mg or 0.5 mg (2 mg/3 mL) pen injector Active 0.25 MG SC EVERY WEEK August 29, 2023 12:00am sertraline 50 mg oral tablet (4 sources) Serotonin Reuptake Inhibitor Start: 06-19-2022 End: 03-30-2024 take 1 tablet by mouth once daily Sertraline (Zoloft) 50 mg tablet Discontinued 50 mg PO DAILY June 19, 2022 1:00am March 30, 2024 1:23pm Tirzepatide (Weight Loss) (1 source) Start: 09-08-2023 End: 10-06-2023 Tirzepatide (Weight Loss) (Zepbound) 2.5 mg/0.5 mL pen injector Discontinued 2.5 mg SC EVERY WEEK 06 25September 08, 2023 12:00am October 05, 2023 12:00am October 06, 2023 12:07am Problems Active Problems Problem Classification Problem Date Documented Date Episodic/Chronic Anxiety disorders (11 sources) Anxiety; Translations: [Anxiety disorder, unspecified] 07-19-2021 Chronic Biliary tract disease (1 source) Biliary sludge; Translations: [Other specified diseases of gallbladder] 02-05-2024 Episodic Cancer of cervix (8 sources) Atypical squamous cells of undetermined significance on cervical Papanicolaou smear; Translations: [Atypical squamous cells of undetermined significance on cytologic smear of cervix (ASC-US)] Episodic Comment on above: 2018 [facility] record scan nedRepeat pap 06/2018, 06/2020 & 2021: negative Coagulation and hemorrhagic disorders (2 sources) Factor V Leiden mutation; Translations: [Activated protein C resistance] 03-06-2023 Chronic Contraceptive and procreative management (5 sources) Patient encounter status; Translations: [Encounter for contraceptive management, unspecified] Episodic Esophageal disorders (7 sources) Gastroesophageal reflux disease; Translations: [Gastro-esophageal reflux disease without esophagitis] Chronic Fluid and electrolyte disorders (1 source) Hypokalemia; Translations: [Hypokalemia] 02-05-2024 Episodic Immunizations and screening for infectious disease (3 sources) Encounter for screening for infections with a predominantly sexual mode of transmission; Translations: [Screening examination for venereal disease] 08-26-2022 Episodic Other connective tissue disease (3 sources) Swelling of lower limb; Translations: [Other specified soft tissue disorders] 02-17-2023 Episodic Other connective tissue disease (3 sources) Pain in right lower limb; Translations: [Pain in right leg] 02-17-2023 Episodic Other ear and sense organ disorders (1 source) Tinnitus; Translations: [Tinnitus, right ear] 04-07-2024 Episodic Other ear and sense organ disorders (1 source) Tinnitus, right ear; Translations: [Tinnitus, right ear] Onset: 06-09-19 Episodic Other endocrine disorders (6 sources) Polycystic ovary syndrome; Translations: [Polycystic ovarian syndrome] 08-26-2022 Chronic Other endocrine disorders (2 sources) Polycystic ovarian syndrome; Translations: [Polycystic ovaries] Chronic Other gastrointestinal disorders (1 source) Abdominal bloating; Translations: [Abdominal distension (gaseous)] 10-09-2023 Episodic Other hereditary and degenerative nervous system conditions (1 source) Olivopontocerebellar degeneration; 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] 03-29-2024 Chronic Other non-traumatic joint disorders (3 sources) Acute ankle pain; Translations: [Pain in left ankle and joints of left foot] 11-06-2024 Episodic Other non-traumatic joint disorders (1 source) Pain in left ankle and joints of left foot; Translations: [Acute left ankle pain] Onset: 11-07-19 Episodic Other nutritional; endocrine; and metabolic disorders (3 sources) Cholesterol level - finding; Translations: [Lipoprotein deficiency] 02-26-2023 Chronic Other nutritional; endocrine; and metabolic disorders (2 sources) Body mass index 30+ - obesity; Translations: [Obesity, unspecified] 09-01-2023 Chronic Other upper respiratory infections (1 source) Chronic sinusitis, unspecified; Translations: [Unspecified sinusitis (chronic)] 04-13-2024 Chronic Residual codes; unclassified (1 source) Edema of foot; Translations: [Localized edema] 11-06-2024 Episodic Residual codes; unclassified (1 source) Localized edema; Translations: [Edema of left foot] Onset: 11-07-19 Episodic Sprains and strains (2 sources) Strain of muscle and/or tendon of lower leg; Translations: [Strain of unspecified muscle and tendon at ankle and foot level, left foot, initial encounter] Onset: 11-07-1911-06-2024 Episodic Thyroid disorders (13 sources) Multinodular goiter; Translations: [Nontoxic multinodular goiter] Onset: 08-07-19 Chronic Viral infection (1 source) Acute viral disease; Translations: [Viral infection, unspecified] 02-05-2024 Episodic Past or Other Problems Problem Classification Problem Date Documented Da te Episodic/Chronic Abdominal pain (8 sources) Right lower quadrant pain; Translations: [Right lower quadrant pain] Onset: 06-03-2011 Resolved: 03-02-2015 09-11-2011 Episodic Acute and chronic tonsillitis (8 sources) Chronic tonsillitis; Translations: [Hypertrophy of tonsils] Onset: 03-11-2011 Resolved: 03-02-2015 03-02-2015 Chronic Appendicitis and other appendiceal conditions (4 sources) Appendicitis; Translations: [Unspecified appendicitis] Onset: 06-03-2011 Resolved: 06-11-2011 06-11-2011 Episodic Bacterial infection; unspecified site (4 sources) Bacteria present; Translations: [Streptococcus, group B, as the cause of diseases classified elsewhere] Onset: 07-31-2015 Resolved: 07-16-2017 07-16-2017 Episodic Cardiac dysrhythmias (2 sources) Palpitations; Translations: [Palpitations] Onset: 10-09-2023 10-09-2023 Episodic Conditions associated with dizziness or vertigo (4 sources) Dizziness; Translations: [Dizziness and giddiness] Onset: 05-12-2024 03-29-2024 Episodic Headache; including migraine (1 source) Headache disorder; Translations: [Headache disorder] Onset: 05-12-2024 Episodic Nausea and vomiting (3 sources) Nausea, vomiting and diarrhea; Translations: [Nausea with vomiting, unspecified] Onset: 02-05-2024 02-05-2024 Episodic Other female genital disorders (4 sources) History of gynecological disorder; Translations: [Personal history of other diseases of the female genital tract] Onset: 09-11-2011 Resolved: 03-02-2015 03-02-2015 Episodic Other gastrointestinal disorders (1 source) Abdominal distension (gaseous); Translations: [Abdominal distension (gaseous)] Onset: 03-28-2024 Episodic Other and delivery including normal (8 sources) Normal ; Translations: [Encounter for supervision of normal first , first trimester] Onset: 01-04-2015 Resolved: 07-16-2017 04-23-2021 Episodic Other upper respiratory infections (3 sources) Streptococcal sore throat; Translations: [Streptococcal pharyngitis] Onset: 03-30-2024 01-28-2023 Episodic Phlebitis; thrombophlebitis and thromboembolism (20 sources) Deep venous thrombosis; Translations: [Acute embolism and thrombosis of unspecified deep veins of unspecified lower extremity] Onset: 08-25-2020 Episodic Comment on above: Acute DVT right LE 2020 lower right leg Superficial injury; contusion (6 sources) Foreign body in hand; Translations: [Superficial foreign body of unspecified hand, initial encounter] Onset: 11-03-2013 Resolved: 03-02-2015 03-02-2015 Episodic Results Test Name Value Interpretation Reference Range Facility [facility] 11-06-2024 CNOV Office Visit ([facility] ) -------- MARISELA STONE ([id number]) 1995 F Date Time Provider Department 11/06/24 9:10 AM KEN OHARA JR [facility] During your visit today, we recorded the following information about you: Temperature Pulse Respiration Blood pressure 97.2 degrees 80/minute 18/minute 114/80 Ken Ohara Jr., UTILITY SALES AND SERVICE MANAGER.AREA SALES MANAGER 11/06/2024 9:53 AM Signed - Diagnosed with a left ankle sprain; X-rays show no fracture. - Use an ankle stirrup brace when walking to limit [id number]-hk-[id number] movement. - Wear socks under the brace to protect your skin. - Ice your ankle for 20 minutes, then rest for 2 hours; repeat as needed. - After a couple of days, you may switch to warm (not hot) heat for 20 minutes, then rest for 2 hours. - Follow up if pain, swelling, or difficulty walking persists or worsens over the next 1-2 weeks. - Use [id number]-acfprjx medications as needed Faizan Jacome LPN 11/06/2024 10:02 AM Signed Ankle stirrup applied to left ankle, patient tolerated well. ALAN Gonsalves Paul J Jr., UTILITY SALES AND SERVICE MANAGER.AREA SALES MANAGER 11/06/2024 10:02 AM Signed [facility] Jo Marisela Stone is a 29 year old female. Patient presents with: Injury: Playing volleyball yesterday, foot went into a hole, left foot/ankle pain Injury Left Ankle Pain: - Injury occurred last evening while playing volleyball on uneven ground; foot went into a hole, accompanied by crunching noises. - Initial pain was minimal, but increased after returning home. - Has been icing and elevating the ankle; reports difficulty sleeping due to pain. - Able to move the foot, but experiences increased pain with plantarflexion. - Denies fever, rashes, abdominal pain, or dyspnea. 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 Review of Systems Constitutional: (+) difficulty sleeping, (-) fever Respiratory: (-) shortness of breath Gastrointestinal: (-) abdominal pain Musculoskeletal: (+) left ankle pain Skin: (-) rash Objective BP 114/80 Pulse 80 Temp 36.2 ?C (97.2 ?F) Resp 18 LMP 07/14/2017 SpO2 98% Physical Exam General: No acute distress. CV: Heart sounds normal, regular rhythm, no murmurs. Resp: Lung sounds clear to auscultation. Abd: Abdominal sounds normal, no abdominal tenderness. MSK/Ext: Left ankle edema, ecchymosis primarily in the lateral aspect of the ankle and foot, no obvious deformity; pedal pulse present and strong; capillary refill of all digits of the left foot less than 2 seconds; left ankle flexion and extension slightly decreased with pain at end range; tenderness to palpation around the lateral left ankle. { 1. Strain of ankle, left, initial encounter (S96.912A) 2. Traumatic ecchymosis of left foot, initial encounter (S90.32XA) 3. Acute left ankle pain (M25.572) 4. Edema of left foot (R60.0) - Left ankle injury sustained during volleyball; examination reveals edema, ecchymosis primarily on the lateral aspect, and tenderness to palpation around the lateral left ankle. No obvious deformity noted. - Left ankle flexion and extension slightly decreased with pain at end range. - Pedal pulse present and strong; capillary refill of all digits of the left foot less than 2 seconds. - Ordered X-rays of the left ankle and foot; preliminary review shows no acute fractures, but radiologist will provide final interpretation. - Diagnosed with a sprain; advised that healing may take 1-2 weeks. - Recommended use of a stirrup brace to limit lateral movement; advised to wear socks to prevent skin irritation. - Continue icing the ankle 20 minutes on, 2 hours off; may switch to warm heat after a few days with the same timing. - Advised against prolonged use of heat to prevent increased inflammation. - Monitor for persistent or worsening symptoms; follow-up recommended if significant pain or dysfunction persists. and Recording using [employer] software for draft documentation of the visit was discussed with the patient/authorized sales representative [employer]; all questions welcomed and answered. Patient/authorized sales representative [employer] agreed to proceed Differential Diagnoses - Sprained ankle is more likely for the following reason(s): suggested by [facility] - Fractured ankle is less likely for the following reason(s): no evidence on imaging Disposition The patient was discharged. Procedures Allergies As of Date: 11/06/2024 Noted Allergy Reaction CODEINE 07/27/2020 14 - Other: See Comments Date Reviewed: 11/06/2024 Reviewed by: Ken Ohara Jr., UTILITY SALES AND SERVICE MANAGER.AREA SALES MANAGER - Fully Assessed Reason for Visit: Injury [5635] Cmt: Playing volleyball yesterday, foot went into a hole, left foot/ankle pain Primary Visit Diagnosis:Strain of ankle, left, initial encounter [S96.912A] Other Visit Diagnoses:Traumatic ecchymosis of left foot, initial encounter [S90.32XA] Acute left ankle pa (more content not included)... [facility] XR ANKLE 3V AP/LAT/OBL LTon 11-06-2024 XR ANKLE 3V AP/LAT/OBL LT * * *Final Report* * * DATE OF EXAM: Nov 06 2024 12:58PM RMX 5298 - XR ANKLE 3V AP/LAT/OBL LT / PROCEDURE REASON: Acute left ankle pain * * * * Physician Interpretation * * * * XR ANKLE 3V AP/LAT/OBL LT Ordering Physician: KEN OHARA 11/06/2024 12:58 PM LEFT ANKLE Clinical Statement: Left ankle pain FINDINGS: 3 images of the left ankle were obtained. There were no prior studies available for comparison. The ankle mortise is maintained. There are no acute fractures. There is mild soft tissue swelling. IMPRESSION: Mild soft tissue swelling. No acute fractures. Dog License Officer Supervisor: PSCB Transcribe Date/Time: Nov 07 2024 10:12A Dictated by : SAMI ENGLAND MD This examination was interpreted and the report reviewed and electronically signed by: SAMI ENGLAND MD on Nov 07 2024 10:13AM EST [id number] [facility] 12 Lead EKGon 08-09-2024 12 Lead EKG [facility] Cardiovascular Services [address] [place] [address] 12 Lead EKG 08/09/24 1536 MR#: [id number] Acct: [id number] Name: MARISELA STONE Rep #: [id number] : 1995 29 From: Elgin Hernandez MD Attending Dr: Status: DEP ER Ordering Dr: Víctor Colon DO Date: 08/09/24 Location: ED Sex: F C Admitted: Test Reason : DIZZY Blood Pressure : */* mmHG Vent. Rate : 80 BPM Atrial Rate : 80 BPM P-R Int : 186 ms QRS Dur : 98 ms QT Int : 362 ms P-R-T Axes : 62 40 43 degrees QTcB Int : 417 ms Normal sinus rhythm Incomplete right bundle branch block Borderline ECG Confirmed by Elgin Hernandez ([id number]), content editor ERWNI MALAVE ([id number]) on 08/10/2024 11:30:28 AM Referred By: Confirmed By: Elgin Hernandez 08/10/24 1130 Date Elgin Hernandez MD CC: Dr. Víctor Colon DO; Dr. Santana Hernandez MD Signed Normal [facility] Absolute neutrophil countOrd ered By: Víctor Colon on 08-09-2024 Neutrophils (Bld) [#/Vol] 6.5 10*3/uL 2.0-7.7 [facility] Anion gap in Serum or Plasma Ordered By: Víctor Colon on 08-09-2024 Anion gap [Moles/Vol] 10 mmol/L 09-09 [facility] BUN/creatinine ratioOrdered By: Víctor Colon on 08-09-2024 Urea nitrogen/Creatinine [Mass ratio] 11.9 mg/mg - [facility] Bacteria LM.HPF (Urine sed) [#/Area]Ordered By: Víctor Colon on 08-09-2024 Urine Bacteria RARE /hpf None Seen [facility] Basic Metabolic Profile (BMP )on 08-09-2024 BUN/CRE 11.9 RATIO Normal - [facility] Comment on above: Performed By: #### L 300.4310, L100.0100, L300.3900, L500.2500, L700.6800 ####[facility] [address] [place], [address] Calcium [Mass/Vol] 9.6 mg/dL Normal 7.6-11.0 [facility] Comment on above: Performed By: #### L 300.4310, L100.0100, L300.3900, L500.2500, L700.6800 ####[facility] [address] [place], [address] Chloride [Moles/Vol] 101 mmol/L Normal 98-108 [facility] Comment on above: Performed By: #### L 300.4310, L100.0100, L300.3900, L500.2500, L700.6800 ####[facility] [address] [place], [address] CO2 [Moles/Vol] 26.3 mmol/L Normal 21.0-32.0 [facility] Comment on above: Performed By: #### L 300.4310, L100.0100, L300.3900, L500.2500, L700.6800 ####[facility] [address] [place], [address] Creatinine [Mass/Vol] 1.04 mg/dL Normal 0.70-1.20 [facility] Comment on above: Performed By: #### L 300.4310, L100.0100, L300.3900, L500.2500, L700.6800 ####[facility] [address] [place], [address] ECRCL 94.31 ml/min Normal 50-250 [facility] Comment on above: Performed By: #### L 300.4310, L100.0100, L300.3900, L500.2500, L700.6800 ####[facility] [address] [place], [address] GAP 10 Normal 5-15 [facility] Comment on above: Performed By: #### L 300.4310, L100.0100, L300.3900, L500.2500, L700.6800 ####[facility] [address] [place], [address] GFR/1.73 sq M.predicted among non-blacks MDRD (S/P/Bld) [Vol rate/Area] 75 mL/min/{1.73_m2} Normal >60 [facility] Comment on above: Result Comment: mL/m in/1.73m2 CKD-EPI Creatinine Equation (2020) Performed By: #### L 300.4310, L100.0100, L300.3900, L500.2500, L700.6800 ####[facility] [address] [place], [address] Glucose [Mass/Vol] 106 mg/dL High 70-99 [facility] Comment on above: Performed By: #### L 300.4310, L100.0100, L300.3900, L500.2500, L700.6800 ####[facility] [address] [place], [address] Potassium [Moles/Vol] 3.8 mmol/L Normal 3.3-5.1 [facility] Comment on above: Performed By: #### L 300.4310, L100.0100, L300.3900, L500.2500, L700.6800 ####[facility] [address] [place], [address] Sodium [Moles/Vol] 138 mmol/L Normal 133-145 [facility] Comment on above: Performed By: #### L 300.4310, L100.0100, L300.3900, L500.2500, L700.6800 ####[facility] [address] [place], [address] Urea nitrogen [Mass/Vol] 12 mg/dL Normal 4-19 [facility] Comment on above: Performed By: #### L 300.4310, L100.0100, L300.3900, L500.2500, L700.6800 ####[facility] [address] [place], [address] Basophil percentageOrdered B y: Víctor Colon on 08-09-2024 Basophils/100 WBC (Bld) 0.6 % 0-1 [facility] Beta HCG ( test) Ql Ordered By: Víctor Colon on 08-09-2024 Serum Test, Qualitative Negative [facility] Bilirubin Test strip Ql (U)O rdered By: Víctor Colon on 08-09-2024 Bilirubin Ql (U) Negative Negative [facility] Brain/Head without Contrasto n 08-09-2024 Brain/Head without Contrast [facility] Imaging Services [address] [place] [address] Brain/Head without Contrast MR#: [id number] Acct: [id number] Name: MARISELA STONE Rep #: [id number] : 1995 F 29 From: Ken Nash MD PCP: Dr. Santana Hernandez MD Status: REG ER Study: Brain/Head without Contrast Date of Exam: 07/27 08/20 Exam# [id number] Ordering Dr: Víctor Colon DO PROCEDURE: BRAIN/HEAD WITHOUT CONTRAST 08/09/2024 REASON FOR EXAM: DIZZINESS Base of neck pain, double vision, factor 5 Leiden, on Eliquis TECHNIQUE: Head CT without intravenous contrast. Coronal and Sagittal reconstruction series were provided. One or more dose reduction techniques were used (e.g., Automated exposure control, adjustment of the mA and/or kV according to patient size, use of iterative reconstruction technique. RADIATION DOSE SUMMARY: CTDlvol: 44.99 mGy DLP: 779.2 mGycm COMPARISON: None FINDINGS: Brain: No intracranial hemorrhage, mass effect, midline shift. Sultana-white matter differentiation maintained without CT findings of acute infarct. No cerebral edema or sulcal effacement. CSF Spaces: Normal Sinuses/Mastoids: Clear at visualized levels Bones: Calvarium appears intact. CT/Brain/Head without Contrast IMPRESSION: NO ACUTE FINDINGS Reading Location: [facility] CC: Dr. Víctor Colon DO; Dr. Santana Hernandez MD Dog License Officer Supervisor: Signed Normal [facility] CBC W/Diff, Automatedon 07-27 Absolute Lymph 2.13 X10 3/uL Normal 0.83-4.51 [facility] Comment on above: Performed By: #### L 300.4310, L100.0100, L300.3900, L500.2500, L700.6800 ####[facility] [address] [place], [address] Absolute Neut 6.5 X10 3/uL Normal 2.0-7.7 [facility] Comment on above: Performed By: #### L 300.4310, L100.0100, L300.3900, L500.2500, L700.6800 ####[facility] [address] [place], [address] Basophils/100 WBC (Bld) 0.6 % Normal 0-1 [facility] Comment on above: Performed By: #### L 300.4310, L100.0100, L300.3900, L500.2500, L700.6800 ####[facility] [address] [place], [address] Eosinophils/100 WBC (Bld) 1.2 % Normal 0-5 [facility] Comment on above: Performed By: #### L 300.4310, L100.0100, L300.3900, L500.2500, L700.6800 ####[facility] [address] [place], [address] Erythrocyte distribution width (RBC) [Ratio] 13.0 % Normal 11.6-14.6 [facility] Comment on above: Performed By: #### L 300.4310, L100.0100, L300.3900, L500.2500, L700.6800 ####[facility] [address] [place], [address] Hematocrit (Bld) [Volume fraction] 42.1 % Normal 37-47 [facility] Comment on above: Performed By: #### L 300.4310, L100.0100, L300.3900, L500.2500, L700.6800 ####[facility] [address] [place], [address] Hemoglobin (Bld) [Mass/Vol] 14.1 g/dL Normal 12.0-15.0 [facility] Comment on above: Performed By: #### L 300.4310, L100.0100, L300.3900, L500.2500, L700.6800 ####[facility] [address] [place], [address] IG% 0.300 Normal 0.0-0.9 [facility] Comment on above: Result Comment: IG% - Immature Granulocytes (promyelocytes, myelocytes and metamyelocytes) > 1% indicates that a LEFT SHIFT is Present. Performed By: #### L 300.4310, L100.0100, L300.3900, L500.2500, L700.6800 ####[facility] [address] [place], [address] Lymphocytes/100 WBC (Bld) 22.6 % Normal 19-41 [facility] Comment on above: Performed By: #### L 300.4310, L100.0100, L300.3900, L500.2500, L700.6800 ####[facility] [address] [place], [address] MCH (RBC) [Entitic mass] 29.3 pg Normal 27.0-32.0 [facility] Comment on above: Performed By: #### L 300.4310, L100.0100, L300.3900, L500.2500, L700.6800 ####[facility] [address] [place], [address] MCHC (RBC) [Mass/Vol] 33.5 g/dL Normal 32-36 [facility] Comment on above: Performed By: #### L 300.4310, L100.0100, L300.3900, L500.2500, L700.6800 ####[facility] [address] [place], [address] MCV (RBC) [Entitic vol] 87.3 fL Normal 81-99 [facility] Comment on above: Performed By: #### L 300.4310, L100.0100, L300.3900, L500.2500, L700.6800 ####[facility] [address] [place], [address] Monocytes/100 WBC (Bld) 6.9 % Normal 0-10 [facility] Comment on above: Performed By: #### L 300.4310, L100.0100, L300.3900, L500.2500, L700.6800 ####[facility] [address] [place], [address] Neutrophils/100 WBC (Bld) 68.4 % Normal 47-70 [facility] Comment on above: Performed By: #### L 300.4310, L100.0100, L300.3900, L500.2500, L700.6800 ####[facility] [address] [place], [address] Nucleated RBC (Bld) [#/Vol] 0 10*3/uL Normal 0-5 [facility] Comment on above: Performed By: #### L 300.4310, L100.0100, L300.3900, L500.2500, L700.6800 ####[facility] [address] [place], [address] Platelet mean volume (Bld) [Entitic vol] 8.6 fL Normal 6.2-12.0 [facility] Comment on above: Performed By: #### L 300.4310, L100.0100, L300.3900, L500.2500, L700.6800 ####[facility] [address] [place], [address] Platelets (Bld) [#/Vol] 368 10*3/uL Normal 150-450 [facility] Comment on above: Performed By: #### L 300.4310, L100.0100, L300.3900, L500.2500, L700.6800 ####[facility] [address] [place], [address] RBC (Bld) [#/Vol] 4.82 10*6/uL Normal 4.2-5.4 [facility] Comment on above: Performed By: #### L 300.4310, L100.0100, L300.3900, L500.2500, L700.6800 ####[facility] [address] [place], [address] RDW SD 41.5 fl Normal 35.1-43.9 [facility] Comment on above: Performed By: #### L 300.4310, L100.0100, L300.3900, L500.2500, L700.6800 ####[facility] [address] [place], [address] WBC (Bld) [#/Vol] 9.4 10*3/uL Normal 4.4-11.0 [facility] Comment on above: Performed By: #### L 300.4310, L100.0100, L300.3900, L500.2500, L700.6800 ####[facility] [address] [place], [address] Carbon dioxide, total [Moles /volume] in Central venous bloodOrdered By: Víctor Colon on 08-09-2024 CO2 [Moles/Vol] 26.3 mmol/L 21.0-32.0 [facility] Chloride assayOrdered By: Jesús Colon on 08-09-2024 Chloride [Moles/Vol] 101 mmol/L 98-108 [facility] Emergency Department Summary on 08-09-2024 Emergency Department Summary [facility] Medical Records Department [address] [place] [address] Emergency Department Summary 08/09/24 MR#: [id number] Acct: [id number] Name: MARISELA STONE Rep #: [id number] : 1995 29 From: Víctor Colon DO PCP: Dr. Santana Hernandez MD Status:DEP ER Location: ED HPI History of Present Illness Chief Complaint: Dizziness Informant: patient Onset/Context/Timing Onset: Yesterday Context: Gradual Onset Timing: Continuous Quality: Off-balance Location: Head Worsened by: Nothing Relieved by: Nothing Narrative Narrative: Patient presents with dizziness that began yesterday. Patient states she feels off balance and like she might pass out. Patient states nothing makes her symptoms worse and nothing makes it better. Patient states they have been gradually getting worse. Patient states she has a history of blood clots and is on Eliquis for this. Patient admits to some blurry vision. Patient admits to some nausea. Patient admits to some tinnitus. Patient denies any fevers or chills. Patient denies any chest pain or shortness of breath. [facility] Medical History Tinnitus, right ear Acute maxillary sinusitis, unspecified Familial olivopontocerebellar atrophy Dizziness Gallbladder sludge Palpitations GERD (gastroesophageal reflux disease) Anxiety Multinodular goiter DVT (deep venous thrombosis) Thyroid nodule Home Medications ???Medication ???Instructions ???Recorded ???Last Taken ???Type levonorgestrel (Mirena) 1 device intrauterine ONCE 2 Unknown History probiotic PO 02/20/23 Unknown History valacyclovir 1 gram tablet 1,000 mg PO BID PRN 02/20/23 Unkno wn History (Valtrex) spironolactone 100 mg tablet 100 mg PO DAILY #90 tabs 08/19/23 Unknown Rx cholecalciferol (vitamin D3) 50 50 mcg PO DAILY 10/09/23 Unknown H istory mcg (2,000 unit) capsule amoxicillin 500 mg tablet 500 mg PO TID #30 tabs 03/30/24 Un known Rx amoxicillin 500 mg tablet 500 mg PO TID #30 tabs 03/30/24 Un known Rx magnesium glycinate 100 mg (as 100 mg PO QDAY 03/30/24 Unknown Hi story glycinate) tablet meclizine 25 mg tablet 25 mg PO TID PRN dizziness #14 tab s 03/30/24 Unknown Rx phytonadione (vitamin K1) 100 mcg 100 mcg PO QDAY 03/30/24 Unknown History tablet cefuroxime axetil 500 mg tablet 500 mg PO BID #20 tabs 04/12/24 Un known Rx apixaban 5 mg tablet (Eliquis) 5 mg PO BID #180 tabs 05/21/24 Unk nown Rx diazepam 2 mg tablet 2 mg PO TID PRN PRN Vertigo #10 Unknown Rx TABLETS Allergy/AdvReac Type Severity Reaction Status Date / Time codeine AdvReac Unknown PT UNSURE Verified 08/09/24 15:10 OF REACTION Family History Unknown Hypertension Mother Diabetes Grandmother Neuropathy Surgical History History of appendectomy delivery delivered Social History household members: spouse housing: house Smoking Status: Former smoker quit date: 02/26/18 Tobacco: How many years used: 4 alcohol intake: never substance use type: does not use caffeine: Yes what type of physical activity do you participate in: walking seatbelt use: always do you feel safe at home: Yes additional social history: single- works at [employer] ROS ROS ED Constitutional Constitutional ED: Denies chills or fever(s) Eyes Eyes: Reports blurry vision; Denies diplopia ENT ENT ED: Denies rhinorrhea or sore throat Cardiovascular Cardiovascular: Denies chest pain or palpitations Respiratory/Chest Respiratory/Chest: Denies cough or dyspnea Gastrointestinal Gastrointestinal: Reports nausea; Denies vomiting Genitourinary Genitourinary ED: Denies dysuria or hematuria Musculoskeletal Musculoskeletal: Reports neck pain; Denies back pain Integumentary Denies abscess or rash Neurologic Neurologic: Reports headache(s); Denies weakness Allergic/Immunologic Allergic/Immunologic ED: Denies mouth swelling or urticaria EXAM Physical Exam Const Vital Signs: 08/09/24 15:05 08/09/24 15:29 08/09/24 16:09 Temperature 98.3 F Temperature Source Oral Pulse Rate 85 78 Pulse Rate [Lying] Pulse Rate [Sitting (for 1 minute prior to obtaining)] Pulse Rate [Standing (for 1 minute prior to obtaining)] Respiratory Rate 16 16 Blood Pressure 145/85 H 117/68 120/87 H Blood Pressure [Lying] Blood Pressure [Sitting (for 1 minute prior to obtaining)] Blood Pressure [Standing (for 1 minute prior to obtaining)] Blood Pressure Mean 105 84 98 Blood Pressure Mean [Lying] Blood Pressure Mean [Sitting (for 1 minute prior to obtaining)] (more content not included)... Normal [facility] Eosinophil percentageOrdered By: Víctor Colon on 08-09-2024 Eosinophils/100 WBC (Bld) 1.2 % 0-5 [facility] Epithelial cells.squamous LM Ql (Urine sed)Ordered By: Víctor Colon on 08-09-2024 Epithelial cells.squamous LM.HPF (Urine sed) [#/Area] 0 /[HPF] 5-10 [facility] Erythrocyte distribution wid th (RBC) [Ratio]Ordered By: Víctor Colon on 08-09-2024 Erythrocyte distribution width (RBC) [Entitic vol] 41.5 fL 35.1-43.9 [facility] Erythrocyte distribution wid th ratioOrdered By: Víctor Colon on 08-09-2024 Erythrocyte distribution width (RBC) [Ratio] 13.0 % 11.6-14.6 [facility] Estimation of creatinine jes aranceOrdered By: Víctor Colon on 08-09-2024 Estimated Creatinine Clearance Calc 94.31 ml/min 50-250 [facility] GFR/1.73 sq M.predicted hilario g non-blacks MDRD (S/P/Bld) [Vol rate/Area]Ordered By: Víctor Colon on 08-09-2024 Estimated GFR (MDRD) Non-Af Amer 75 >60 [facility] Comment on above: mL/min/1.73m2 CKD-EP I Creatinine Equation (2020) Glucose Ql (U)Ordered By: Jesús Colon on 08-09-2024 Urine Glucose (UA) Normal mg/dl Normal [facility] Hematocrit Auto (Bld) [Volum e fraction]Ordered By: Víctor Colon on 08-09-2024 Hematocrit (Bld) [Volume fraction] 42.1 % 37-47 [facility] Hemoglobin measurementOrdere d By: Víctor Colon on 08-09-2024 Hemoglobin (Bld) [Mass/Vol] 14.1 g/dL 12.0-15.0 [facility] Immature granulocytes/100 WB C Auto (Bld)Ordered By: Víctor Colon on 08-09-2024 Immature granulocytes/100 WBC (Bld) 0.300 % 0.0-0.9 [facility] Comment on above: IG% - Immature Granu locytes (promyelocytes, myelocytes and metamyelocytes) > 1% indicates that a LEFT SHIFT is Present. International normalized rat io (INR) calculationOrdered By: Víctor Colon on 08-09-2024 INR Coag (Bld) [Relative time] 1.1 {INR} [facility] Ketones Test strip Ql (U)Ord ered By: Víctor Colon on 08-09-2024 Ketones Ql (U) Negative Negative [facility] Lymphocytes Auto (Unsp spec) [#/Vol]Ordered By: Víctor Colon on 08-09-2024 Lymphocytes (Bld) [#/Vol] 2.13 10*3/uL 0.83-4.51 [facility] Lymphocytes/100 WBC Auto (Un sp spec)Ordered By: Víctor Colon on 08-09-2024 Lymphocytes/100 WBC (Bld) 22.6 % 19-41 [facility] MCV (mean corpuscular volume ) determinationOrdered By: Víctor Colon on 08-09-2024 MCV (RBC) [Entitic vol] 87.3 fL 81-99 [facility] Mean corpuscular hemoglobin (MCH) determinationOrdered By: Víctor Colon on 08-09-2024 MCH (RBC) [Entitic mass] 29.3 pg 27.0-32.0 [facility] Mean corpuscular hemoglobin concentration (MCHC) determinationOrdered By: Víctor Colon on 08-09-2024 MCHC (RBC) [Mass/Vol] 33.5 g/dL 32-36 [facility] Mean platelet volume determi nationOrdered By: Víctor Colon on 08-09-2024 Platelet mean volume (Bld) [Entitic vol] 8.6 fL 6.2-12.0 [facility] Microscopic analysis of urin e for red blood cells (RBC)Ordered By: Víctor Colon on 08-09-2024 Urine RBC 0 SEEN /hpf 0-5 [facility] Monocyte percentageOrdered B y: Víctor Colon on 08-09-2024 Monocytes/100 WBC (Bld) 6.9 % 0-10 [facility] Mucus LM Ql (Urine sed)Order ed By: Víctor Colon on 08-09-2024 Mucus Ql (Urine sed) 0 SEEN /hpf [facility] Neutrophil percentageOrdered By: Víctor Colon on 08-09-2024 Neutrophils/100 WBC (Bld) 68.4 % 47-70 [facility] Nitrite Test strip Ql (U)Ord ered By: Víctor Colon on 08-09-2024 Nitrite Ql (U) Negative Negative [facility] Nucleated red blood cell per centageOrdered By: Víctor Colon on 08-09-2024 Nucleated RBC/100 WBC (Bld) [Ratio] 0 % 0-5 [facility] Partial Thromboplast Timeon 08-09-2024 aPTT Coag (Bld) [Time] 28.7 s Normal 24.1-36.[address] [facility] Comment on above: Performed By: #### L 300.4310, L100.0100, L300.3900, L500.2500, L700.6800 ####[facility] [address] [place], [place], [phone] Platelet countOrdered By: Jesús Colon on 08-09-2024 Platelets (Bld) [#/Vol] 368 10*3/uL 150-450 [facility] Potassium (Unsp spec) [Mass/ Vol]Ordered By: Víctor Colon on 08-09-2024 Potassium [Moles/Vol] 3.8 mmol/L 3.3-5.1 [facility] ,Serum,hCG Quali.on 08-09-2024 HCG, SERUM QUAL Negative Normal [facility] Comment on above: Performed By: #### L 300.4310, L100.0100, L300.3900, L500.2500, L700.6800 ####[facility] [address] [place], [place], [phone] Protein Test strip Ql (U)Ord ered By: Víctor Colon on 08-09-2024 Protein Ql (U) 15 mg/dl High Negative [facility] Prothrombin Time w/INRon INR Coag (PPP) [Relative time] 1.1 {INR} Normal [facility] Comment on above: Performed By: #### L 300.4310, L100.0100, L300.3900, L500.2500, L700.6800 ####[facility] [address] [place], [address] PT Coag (PPP) [Time] 14.3 s Normal 11.7-14.9 [facility] Comment on above: Performed By: #### L 300.4310, L100.0100, L300.3900, L500.2500, L700.6800 ####[facility] [address] [place], [address] Prothrombin timeOrdered By: Víctor Colon on 08-09-2024 PT Coag (PPP) [Time] 14.3 s 11.7-14.9 [facility] RBC Auto (Bld) [#/Vol]Ordere d By: Víctor Colon on 08-09-2024 RBC (Bld) [#/Vol] 4.82 10*6/uL 4.2-5.4 [facility] Serum creatinine measurement (mass/volume)Ordered By: Víctor Colon on 08-09-2024 Creatinine [Mass/Vol] 1.04 mg/dL 0.70-1.20 [facility] Serum glucose measurement (m ass/volume)Ordered By: Víctor Colon on 08-09-2024 Glucose [Mass/Vol] 106 mg/dL High 70-99 [facility] Serum or plasma calcium rylan urement (mass/volume)Ordered By: Víctor Colon on 08-09-2024 Calcium [Mass/Vol] 9.6 mg/dL 7.6-11.0 [facility] Serum or plasma urea nitroge n measurement (mass/volume)Ordered By: Víctor Colon on 08-09-2024 Urea nitrogen [Mass/Vol] 12 mg/dL 4-19 [facility] Sodium levelOrdered By: Víctor Colon on 08-09-2024 Sodium [Moles/Vol] 138 mmol/L 133-145 [facility] Urinalysis, Completeon 08-09 BACTERIA RARE Normal None Seen [facility] Comment on above: Order Comment: CLEAN CATCH Performed By: #### L 400.0001 ####[facility] [address] [place], [address] EPI,SQUAMOUS 0-5 SEEN Normal 5-10 [facility] Comment on above: Order Comment: CLEAN CATCH Performed By: #### L 400.0001 ####[facility] [address] [place], [address] Mucus Ql (Urine sed) 0 SEEN Normal [facility] Comment on above: Order Comment: CLEAN CATCH Performed By: #### L 400.0001 ####[facility] [address] [place], [address] RBC 0 SEEN Normal 0-5 [facility] Comment on above: Order Comment: CLEAN CATCH Performed By: #### L 400.0001 ####[facility] [address] [place], [place], [address] WBC 0 SEEN Normal 0-5 [facility] Comment on above: Order Comment: CLEAN CATCH Performed By: #### L 400.0001 ####[facility] [address] [place], [place], [address] Urine blood detectionOrdered By: Víctor Colon on 08-09-2024 Urine Occult Blood Negative Negative [facility] Urine clarityOrdered By: Veronica Colon on 08-09-2024 Clarity (U) Clear Clear [facility] Urine color determinationOrd ered By: Víctor Colon on 08-09-2024 Color (U) Yellow Yellow [facility] Urine leukocyte esterase det ection by dipstickOrdered By: Víctor Colon on 08-09-2024 Leukocyte esterase Test strip Ql (U) Negative Negative [facility] Urine pHOrdered By: Víctor gallegos on 08-09-2024 pH (U) 6.5 [pH] 5.0 - 8.0 [facility] Urine specific gravity measu rementOrdered By: Víctor Colon on 08-09-2024 Specific gravity (U) [Rel density] 1.010 1.002-1.030 [facility] Urobilinogen Ql (U)Ordered B y: Víctor Colon on 08-09-2024 Urine Urobilinogen Normal mg/dl Normal [facility] White blood cell (WBC) count Ordered By: Víctor Colon on 08-09-2024 WBC (Bld) [#/Vol] 9.4 10*3/uL 4.4-11.0 [facility] White blood cell countOrdere d By: Víctor Colon on 08-09-2024 Urine WBC 0 SEEN /hpf 0-5 [facility] aPTT Coag (PPP) [Time]Ordere d By: Víctor Colon on 08-09-2024 aPTT Coag (Bld) [Time] 28.7 s 24.1-36.[address] [facility] Almondon 05-22-2024 ALMOND <0.10 Normal Class 0 [facility] Comment on above: Performed By: #### L 5530.0279, L5530.0039, L5530.1339, L5530.0009, L5530.0299, L5530.1719, L5530.0399, L5500.0550, L5530.0629, L5530.0089, L3410.2920, L5530.1389, L5530.1619, L5530.1039 ####[facility] [address] [place], [place], [phone] Appleon 05-22-2024 APPLE <0.10 Normal Class 0 [facility] Comment on above: Performed By: #### L 506.0400, L500.4100, L501.9520, L501.97694, L801.1541, L506.1000, L300.8000, L500.4050, L100.0100, L4500.0100 #### [facility] [address] [place], [address] Bananaon 05-22-2024 BANANA <0.10 Normal Class 0 [facility] Comment on above: Performed By: #### L 506.0400, L500.4100, L501.9520, L501.28077, L801.1541, L506.1000, L300.8000, L500.4050, L100.0100, L4500.0100 #### [facility] [address] [place], [place], [phone] Carroton 05-22-2024 CARROT <0.10 Normal Class 0 [facility] Comment on above: Performed By: #### L 506.0400, L500.4100, L501.9520, L501.79238, L801.1541, L506.1000, L300.8000, L500.4050, L100.0100, L4500.0100 #### [facility] [address] [place], [place], [id number] Cashewon 05-22-2024 CASHEW <0.10 Normal Class 0 [facility] Comment on above: Performed By: #### L 506.0400, L500.4100, L501.9520, L501.41593, L801.1541, L506.1000, L300.8000, L500.4050, L100.0100, L4500.0100 #### [facility] [address] [place], [place], [phone] (847) Chickenon 05-22-2024 CHICKEN <0.10 Normal Class 0 [facility] Comment on above: Performed By: #### L 506.0400, L500.4100, L501.9520, L501.69466, L801.1541, L506.1000, L300.8000, L500.4050, L100.0100, L4500.0100 #### [facility] [address] [place], [place], [id number] Garlicon 05-22-2024 GARLIC <0.10 Normal Class 0 [facility] Comment on above: Performed By: #### L 506.0400, L500.4100, L501.9520, L501.55626, L801.1541, L506.1000, L300.8000, L500.4050, L100.0100, L4500.0100 #### [facility] [address] [place], [place], [address] L5500.0550on 05-22-2024 BEEF <0.10 Normal Class 0 [facility] Comment on above: Performed By: #### L 5530.0279, L5530.0039, L5530.1339, L5530.0009, L5530.0299, L5530.1719, L5530.0399, L5500.0550, L5530.0629, L5530.0089, L3410.2920, L5530.1389, L5530.1619, L5530.1039 ####[facility] [address] [place], [place], [phone] CHOCOLATE <0.10 Normal Class 0 [facility] Comment on above: Performed By: #### L 5530.0279, L5530.0039, L5530.1339, L5530.0009, L5530.0299, L5530.1719, L5530.0399, L5500.0550, L5530.0629, L5530.0089, L3410.2920, L5530.1389, L5530.1619, L5530.1039 ####[facility] [address] [place], [place], [phone] CODFISH <0.10 Normal Class 0 [facility] Comment on above: Performed By: #### L 5530.0279, L5530.0039, L5530.1339, L5530.0009, L5530.0299, L5530.1719, L5530.0399, L5500.0550, L5530.0629, L5530.0089, L3410.2920, L5530.1389, L5530.1619, L5530.1039 ####[facility] [address] [place], [place], [phone] COMMENT Comment Normal . [facility] Comment on above: Result Comment: Rojelio tello of Specific IgE Class Description of Class ----- < 0.10 0 Negative 0.10 - 0.31 0/I Equivocal/Low 0.32 - 0.55 I Low 0.56 - 1.40 II Moderate 1.41 - 3.90 III High 3.91 - 19.00 IV Very High 19.01 - 100.00 V Very High >100.00 Very High Performed By: #### L 5530.0279, L5530.0039, L5530.1339, L5530.0009, L5530.0299, L5530.1719, L5530.0399, L5500.0550, L5530.0629, L5530.0089, L3410.2920, L5530.1389, L5530.1619, L5530.1039 ####[facility] [address] [place], [address] CORN <0.10 Normal Class 0 [facility] Comment on above: Performed By: #### L 5530.0279, L5530.0039, L5530.1339, L5530.0009, L5530.0299, L5530.1719, L5530.0399, L5500.0550, L5530.0629, L5530.0089, L3410.2920, L5530.1389, L5530.1619, L5530.1039 ####[facility] [address] [place], [place], [phone] EGG, WHOLE <0.10 Normal Class 0 [facility] Comment on above: Performed By: #### L 5530.0279, L5530.0039, L5530.1339, L5530.0009, L5530.0299, L5530.1719, L5530.0399, L5500.0550, L5530.0629, L5530.0089, L3410.2920, L5530.1389, L5530.1619, L5530.1039 ####[facility] [address] [place], [place], [phone] MILK (COW) <0.10 Normal Class 0 [facility] Comment on above: Performed By: #### L 5530.0279, L5530.0039, L5530.1339, L5530.0009, L5530.0299, L5530.1719, L5530.0399, L5500.0550, L5530.0629, L5530.0089, L3410.2920, L5530.1389, L5530.1619, L5530.1039 ####[facility] [address] [place], [address] MUSSELS <0.10 Normal Class 0 [facility] Comment on above: Performed By: #### L 5530.0279, L5530.0039, L5530.1339, L5530.0009, L5530.0299, L5530.1719, L5530.0399, L5500.0550, L5530.0629, L5530.0089, L3410.2920, L5530.1389, L5530.1619, L5530.1039 ####[facility] [address] [place], [place], [phone] PEANUT <0.10 Normal Class 0 [facility] Comment on above: Performed By: #### L 5530.0279, L5530.0039, L5530.1339, L5530.0009, L5530.0299, L5530.1719, L5530.0399, L5500.0550, L5530.0629, L5530.0089, L3410.2920, L5530.1389, L5530.1619, L5530.1039 ####[facility] [address] [place], [place], [phone] PORK <0.10 Normal Class 0 [facility] Comment on above: Performed By: #### L 5530.0279, L5530.0039, L5530.1339, L5530.0009, L5530.0299, L5530.1719, L5530.0399, L5500.0550, L5530.0629, L5530.0089, L3410.2920, L5530.1389, L5530.1619, L5530.1039 ####[facility] [address] [place], [place], [phone] SALMON <0.10 Normal Class 0 [facility] Comment on above: Performed By: #### L 5530.0279, L5530.0039, L5530.1339, L5530.0009, L5530.0299, L5530.1719, L5530.0399, L5500.0550, L5530.0629, L5530.0089, L3410.2920, L5530.1389, L5530.1619, L5530.1039 ####[facility] [address] [place], [place], [phone] SHRIMP <0.10 Normal Class 0 [facility] Comment on above: Performed By: #### L 5530.0279, L5530.0039, L5530.1339, L5530.0009, L5530.0299, L5530.1719, L5530.0399, L5500.0550, L5530.0629, L5530.0089, L3410.2920, L5530.1389, L5530.1619, L5530.1039 ####[facility] [address] [place], [address] SOYBEAN <0.10 Normal Class 0 [facility] Comment on above: Performed By: #### L 5530.0279, L5530.0039, L5530.1339, L5530.0009, L5530.0299, L5530.1719, L5530.0399, L5500.0550, L5530.0629, L5530.0089, L3410.2920, L5530.1389, L5530.1619, L5530.1039 ####[facility] [address] [place], [place], [phone] TUNA <0.10 Normal Class 0 [facility] Comment on above: Performed By: #### L 5530.0279, L5530.0039, L5530.1339, L5530.0009, L5530.0299, L5530.1719, L5530.0399, L5500.0550, L5530.0629, L5530.0089, L3410.2920, L5530.1389, L5530.1619, L5530.1039 ####[facility] [address] [place], [place], [phone] WHEAT <0.10 Normal Class 0 [facility] Comment on above: Performed By: #### L 5530.0279, L5530.0039, L5530.1339, L5530.0009, L5530.0299, L5530.1719, L5530.0399, L5500.0550, L5530.0629, L5530.0089, L3410.2920, L5530.1389, L5530.1619, L5530.1039 ####[facility] [address] [place], [place], [address] Onionon 05-22-2024 ONION <0.10 Normal Class 0 [facility] Comment on above: Performed By: #### L 506.0400, L500.4100, L501.9520, L501.27860, L801.1541, L506.1000, L300.8000, L500.4050, L100.0100, L4500.0100 #### [facility] [address] [place], [place], [id number] Potato, White 05-22-2024 POTATO,[id number] <0.10 Normal Class 0 [facility] Comment on above: Performed By: #### L 5530.0279, L5530.0039, L5530.1339, L5530.0009, L5530.0299, L5530.1719, L5530.0399, L5500.0550, L5530.0629, L5530.0089, L3410.2920, L5530.1389, L5530.1619, L5530.1039 ####[facility] [address] [place], [place], [address] Rice 05-22-2024 RICE <0.10 Normal Class 0 [facility] Comment on above: Performed By: #### L 5530.0279, L5530.0039, L5530.1339, L5530.0009, L5530.0299, L5530.1719, L5530.0399, L5500.0550, L5530.0629, L5530.0089, L3410.2920, L5530.1389, L5530.1619, L5530.1039 ####[facility] [address] [place], [place], [id number] Turkeyon 05-22-2024 TURKEY <0.10 Normal Class 0 [facility] Comment on above: Result Comment: Perf ormed at: [facility] [address] [id number] Hospice Nurse: Martina Servin MD, Phone: [phone] Performed By: #### L 5530.0279, L5530.0039, L5530.1339, L5530.0009, L5530.0299, L5530.1719, L5530.0399, L5500.0550, L5530.0629, L5530.0089, L3410.2920, L5530.1389, L5530.1619, L5530.1039 ####[facility] [address] [place], [place], [id number] Yeaston 05-22-2024 Yeast LM Ql (Urine sed) <0.10 Normal Class 0 [facility] Comment on above: Performed By: #### L 5530.0279, L5530.0039, L5530.1339, L5530.0009, L5530.0299, L5530.1719, L5530.0399, L5500.0550, L5530.0629, L5530.0089, L3410.2920, L5530.1389, L5530.1619, L5530.1039 ####[facility] [address] [place], [place], [id number] t-Transglutaminase IgAon tTG IGA <2 Normal 0-3 [facility] Comment on above: Result Comment: Nega tive 0 - 3 Weak Positive 4 - 10 Positive >10 Tissue Transglutaminase (tTG) has been identified as the endomysial antigen. Studies have demonstr- ated that endomysial IgA antibodies have over 99% specificity for gluten sensitive enteropathy. Performed at: [facility] [address] [id number] Hospice Nurse: Jeffry Velasquez PhD, Phone: [phone] Performed By: #### L 5530.0279, L5530.0039, L5530.1339, L5530.0009, L5530.0299, L5530.1719, L5530.0399, L5500.0550, L5530.0629, L5530.0089, L3410.2920, L5530.1389, L5530.1619, L5530.1039 ####[facility] [address] [place], [address] Jackson IgE Qn (S)Ordered By: Alex Sow on 05-20-2024 Jackson Allergen (RAST) <0.10 kU/L Class [address] [facility] Apple IgE Qn (S)Ordered By: Alex Sow on 05-20-2024 Apple Allergen (RAST) <0.10 kU/L Class 0 [facility] Banana IgE Qn (S)Ordered By: Alex Sow on 05-20-2024 Banana Allergen (RAST) <0.10 kU/L Class [address] [facility] Beef IgE Qn (S)Ordered By: Marek Sow on 05-20-2024 Beef Allergen (RAST) <0.10 kU/L Class 0 [facility] Beef Allergen IgE Antibody Not Reportable [facility] Brain without Contraston Brain without Contrast [facility] Imaging Services [address] [place], [place] [address] Brain without Contrast MR#: [id number] Acct: [id number] Name: MARISELA STONE Rep #: [id number] : 1995 F 29 From: Jon Loja MD PCP: Dr. Santana Hernandez MD Status: REG CLI Study: Brain without Contrast Date of Exam: 05/20/24 Exam# [id number] Ordering Dr: Santana Hernandez MD [id number] STUDY: MRI BRAIN WITHOUT CONTRAST (ATTENTION INTERNAL AUDITORY CANALS - I.A.C.''s) REASON FOR EXAM: Female, 29 years old. Dizziness, attention IAC TECHNIQUE: Standardized multiplanar fat and water weighted pulse sequences were obtained. COMPARISON: None. FINDINGS: Normal bilateral internal auditory canals. There is no demonstrated intracanalicular or cisternal vestibular schwannoma ("acoustic neuroma") on this unenhanced examination. Normal visualized bilateral cochlea, vestibules and semicircular canals. Normal bilateral mastoid air cells. Normal midbrain, ric and medulla. Normal cerebellum. Normal basal cisterns. Normal size of the ventricles and extra-axial spaces for the patient''s age. Normal white matter tracts of the supratentorial brain. Normal bilateral basal ganglia. Normal thalami. There is no extra-axial fluid accumulation. Normal flow voids within the major intracranial circulation suggesting patency by spin echo criteria. Normal sella turcica, pituitary gland, infundibular stalk, optic chiasm and hypothalamus. Normal tectal plate and pineal gland. No demonstrated orbital abnormality, within the constraints of a routine brain study. Normal visualized paranasal sinuses. Normal calvarium and skull base. Normal visualized soft tissue structures. MRI/Brain without Contrast IMPRESSION: Normal unenhanced MRI of the bilateral internal auditory canals (I.A.C''s). Normal unenhanced MRI of the brain. Electronically Signed: Jon Loja MD at 16:01 [facility] Reading Location ID and State: [facility] / [place] , Service support , CC: Dr. Santana Hernandez MD Dog License Officer Supervisor: Signed Normal [facility] Leung's yeast IgE Qn (S)Ord ered By: Alex Sow on 05-20-2024 Yeast Allergen <0.10 kU/L Class 0 [facility] Carrot IgE Qn (S)Ordered By: Alex Sow on 05-20-2024 Carrot Allergen IgE Antibody <0.10 kU/L Class 0 [facility] Cashew nut IgE Qn (S)Ordered By: Alex Sow on 05-20-2024 Cashew Allergen (RAST) <0.10 kU/L Class [address] [facility] Chicken IgE Qn (S)Ordered By : Alex Sow on 05-20-2024 Chicken Meat Allergen (RAST) <0.10 kU/L Class 0 [facility] Chocolate IgE serumOrdered B y: Alex Sow on 05-20-2024 Chocolate Allergen (RAST) <0.10 kU/L Class 0 [facility] Codfish IgE Qn (S)Ordered By : Alex Sow on 05-20-2024 Codfish Allergen (RAST) <0.10 kU/L Class 0 [facility] [place] IgE Qn (S)Ordered By: Marek Sow on 05-20-2024 [place] Allergen (RAST) <0.10 kU/L Class 0 [facility] Cow milk IgE Qn (S)Ordered B y: Alex Sow on 05-20-2024 Cow's Milk Allergen <0.10 kU/L Class 0 [facility] Garlic IgE Qn (S)Ordered By: Alex Sow on 05-20-2024 Garlic Allergen IgE Antibody <0.10 kU/L Class 0 [facility] Onion IgE Qn (S)Ordered By: Alex Sow on 05-20-2024 Onion Allergen IgE Antibody <0.10 kU/L Class 0 [facility] Peanut IgE Qn (S)Ordered By: Alex Sow on 05-20-2024 Peanut Allergen (RAST) <0.10 kU/L Class [address] [facility] Pork IgE Qn (S)Ordered By: Marek Sow on 05-20-2024 Pork Allergen (RAST) <0.10 kU/L Class 0 [facility] Potato IgE Qn (S)Ordered By: Alex Sow on 05-20-2024 White Potato Allergen IgE Antibody <0.10 kU/L Class 0 [facility] Rice IgE Qn (S)Ordered By: Marek Sow on 05-20-2024 Rice Allergen (RAST) <0.10 kU/L Class 0 [facility] [place] IgE Qn (S)Ordered By: Alex oSw on 05-20-2024 [place] Allergen IgE Antibody <0.10 kU/L Class 0 [facility] Serum mussel specific IgE an tibody assayOrdered By: Alex Sow on 05-20-2024 Mussel Allergen IgE Antibody <0.10 kU/L Class 0 [facility] Serum shrimp specific IgE an tibody assayOrdered By: Alex Sow on 05-20-2024 Shrimp Allergen <0.10 kU/L Class 0 [facility] Service comment (Unsp spec) [Interp]Ordered By: Alex Sow on 05-20-2024 RAST Comment Comment . [facility] Comment on above: Levels of Specific I gE Class Description of Class ----- < 0.10 0 Negative 0.10 - 0.31 0/I Equivocal/Low 0.32 - 0.55 I Low 0.56 - 1.40 II Moderate 1.41 - 3.90 III High 3.91 - 19.00 IV Very High 19.01 - 100.00 V Very High >100.00 Very High Soybean IgE Qn (S)Ordered By : Alex Sow on 05-20-2024 Soybean Allergen (RAST) <0.10 kU/L Class 0 [facility] Tuna IgE Qn (S)Ordered By: Marek Sow on 05-20-2024 Tuna Allergen (RAST) <0.10 kU/L Class 0 [facility] [place] meat IgE Qn (S)Ordere d By: Alex Sow on 05-20-2024 [place] Meat Allergen <0.10 kU/L Class 0 [facility] Comment on above: Performed at: [facility] [address] [id number] Director: Martina Servin MD, Phone: [phone] Wheat IgE Qn (S)Ordered By: Alex Sow on 05-20-2024 Wheat Allergen (RAST) <0.10 kU/L Class 0 [facility] Whole Egg IgE Qn (S)Ordered By: Alex Sow on 05-20-2024 Egg Whole Allergen <0.10 kU/L Class 0 [facility] tTG IgA Qn (S)Ordered By: Sylvester Sow on 05-20-2024 Tissue Transglutaminase IgA Ab <2 U/mL 0-3 [facility] Comment on above: Negative 0 - 3 Weak Positive 4 - 10 Positive >10 Tissue Transglutaminase (tTG) has been identified as the endomysial antigen. Studies have demonstr- ated that endomysial IgA antibodies have over 99% specificity for gluten sensitive enteropathy.Performed at: [facility] [employer] [id number] Director: Jeffry Velasquez PhD, Phone: [phone] ED PROV NOTEon 05-13-2024 ED PROV NOTE HNO ID: [id number] Author: TYESHA GOMEZ MD Service: ? Author Type: Physician Type: ED Provider Notes Filed: 05/14/2024 13:28 Note Text: ED Provider Note Patient Name: Marisela Stone : 1995 SERVICE DATE: 05/12/24 History Patient presents with: Dizziness: Dizziness and nausea since January History provided by: Patient lieutenant fire fighter used: No Marisela Stone is a 29 year old female who presents to the ED for further evaluation of intermittent dizziness for the past 3 months. Symptoms became worse after Thanksgiving. She has had frontal headache and pressure in the sinuses. She seen in the ED for this. She has been prescribed a total of 3 rounds of antibiotics for sinusitis. She has not had any improvement in symptoms. She occasionally feels lightheaded and also has spinning sensation. She denies any nausea or vomiting. No visual changes. No constipation or diarrhea. No chest pain or shortness of breath. No abdominal pain. She denies urinary symptoms. She was seen by ENT and they did not feel symptoms were related to vertigo. She has an MRI scheduled for next week. She has no other complaints at this time. ROS Review of Systems All other systems reviewed and are negative. No pertinent positive findings other than noted in HPI, MDM or ED course. PAST MEDICAL HISTORY Diagnosis Date Appendicitis 06/03/2011 Chlamydia infection 2013 History of ovarian cyst 09/11/2011 PMH - PAST MEDICAL HISTORY OF 12/01/08 normal. color vision Right ovarian cyst Thyroid nodule 08/06/2018 PAST SURGICAL HISTORY Procedure Laterality Date DELIVERY ONLY 09/02/15 , low transverse EXTRACTION, ERUPTED TOOTH OR EXPOSED ROOT (ELEVATION AND/OR FORCEPS REMOVAL) 11/21/13 x2 LAPAROSCOPIC APPENDECTOMY 06-03-11 PAST SURGICAL HISTORY OF 10/18/13 glass removed from right hand FAMILY HISTORY Problem Relation Age of Onset Hypertension Maternal Grandmother Lipids Maternal Grandfather High Cholesterol other (past) Paternal Grandmother brain stem disorder. Breast Cancer Other Maternal Second Cousin Cancer Other Cervical-Maternal Side Social History Tobacco Use Smoking status: Former Current packs/day: 0.50 Types: Cigarettes Smokeless tobacco: Never Tobacco comments: quit when found out about Vaping Use Vaping status: Never Used Substance and Sexual Activity Alcohol use: Yes Comment: occasional Drug use: No Sexual activity: Yes Partners: Male ALLERGIES Allergen Reactions Codeine Other: See Comments Records on file/review of medical records: Nursing/triage notes and assessments as well as vitals were reviewed and incorporated Physical Exam Vitals [05/12/24 1356] BP Pulse Temp Temp src Resp SpO2 Weight Height 146/84 89 36.9 ?C (98.4 ?F) Oral 18 99 % 99.8 kg (220 lb) 1.626 m (5' 4") Physical Exam Vitals and nursing note reviewed. Constitutional: Appearance: Normal appearance. HENT: Head: Normocephalic and atraumatic. Right Ear: Tympanic membrane and external ear normal. Left Ear: Tympanic membrane and external ear normal. Nose: Nose normal. Mouth/Throat: Mouth: Mucous membranes are moist. Pharynx: Oropharynx is clear. Eyes: Extraocular Movements: Extraocular movements intact. Conjunctiva/sclera: Conjunctivae normal. Pupils: Pupils are equal, round, and reactive to light. Comments: No nystagmus Cardiovascular: Rate and Rhythm: Normal rate and regular rhythm. Pulses: Normal pulses. Heart sounds: Normal heart sounds. Pulmonary: Effort: Pulmonary effort is normal. Breath sounds: Normal breath sounds. Abdominal: General: Abdomen is flat. Bowel sounds are normal. Palpations: Abdomen is soft. Musculoskeletal: General: Normal range of motion. Cervical back: Normal range of motion and neck supple. Skin: General: Skin is warm and dry. Capillary Refill: Capillary refill takes less than 2 seconds. Neurological: General: No focal deficit present. Mental Status: She is alert and oriented to person, place, and time. Psychiatric: Mood and Affect: Mood normal. Diagnostic Testing ED Labs Ordered and Reviewed COMPREHENSIVE METABOLIC PANEL - Abnormal; Notable for the following components: Result Value Ref Range Anion Gap 3 (*) 5 - 16 mmol/L All other components within normal limits COMPLETE BLOOD COUNT AND DIFFERENTIAL - Abnormal; Notable for the following components: MPV 8.6 (*) 9.0 - 12.7 fL All other components within normal limits HCG QUALITATIVE - Normal Radiology/images: CT BRAIN WO IVCON Final Result IMPRESSION: No acute intracranial process. Dog License Officer Supervisor: RICHAR Transcribe Date/Time: May 12 2024 3:21P Dictated by : CYNTHIA HANNA MD This examination was interpreted and the report reviewed and electronically signed by: CYNTHIA HANNA MD on May 12 2024 3:26PM EST I reviewed images as well as radiologist interpretation(s) Procedures: (more content not included)... [facility] [id number] Author: ERIKA AVEYR RT(R) Service: Radiology Author Type: Technologist Type: Allied Health Filed: 05/12/2024 15:16 Note Text: -------- Summary: CT SCAN -------- Radiology Service Progress Note PATIENT NAME: Marisela Stone DATE OF SERVICE: May 12, 2024 TIME: 3:16 PM PATIENT IDENTITY VERIFICATION COMPLETED USING TWO (2) IDENTIFIERS: Name and Date of confirmed by patient verbally and Name and Date of confirmed by identification band. FALL SCREENING: Has the patient had 2 falls in the last year or 1 fall with injury or currently using an Ambulatory Assistive Device (Walker, Cane, Wheelchair, Crutches, etc.)? Emergency Room Patient: Screened in ED PATIENT GENDER DATA: Assigned female at . status: : No status: NO. PATIENT RELEVANT IMPLANT DATA REVIEWED: Not Applicable PATIENT PRESENTS WITH AN IMPLANTABLE OR ATTACHED DRAPERY HEAD FORMER: No RADIOLOGY DEPARTMENT: CT; Exam(s) Completed: Brain PERIPHERAL IV DATA: Not applicable SIGNED BY: Erika Avery RT(R)(CT) May 12, 2024 3:16 PM Normal [facility] [place] CBC W Auto Differential pane l (Bld)on 05-12-2024 Basophils (Bld) [#/Vol] 0.06 10*3/uL Normal <0.11 [facility] Comment on above: Order Comment: Speci men Type: BLOOD SPECIMEN Ordering Facility: [facility] Address: [address] [place] [address] Performed By: #### 5 7021-8 #### [facility] CLIA [id number] [address] [place] [address] [place] Basophils/100 WBC (Bld) 0.6 % Normal [facility] Comment on above: Order Comment: Speci men Type: BLOOD SPECIMEN Ordering Facility: [facility] Address: [address] [place] [address] Performed By: #### 5 7021-8 #### [facility] CLIA [id number] [address] [place] [address] [place] Differential cell count method Nom (Bld) Auto Normal [facility] Comment on above: Order Comment: Speci men Type: BLOOD SPECIMEN Ordering Facility: [facility] Address: [address] [place] [address] Performed By: #### 5 7021-8 #### [facility] CLIA [id number] [address] [place] [address] [place] Eosinophils (Bld) [#/Vol] 0.10 10*3/uL Normal <0.46 [facility] Comment on above: Order Comment: Speci men Type: BLOOD SPECIMEN Ordering Facility: [facility] Address: [address] [place] [address] Performed By: #### 5 7021-8 #### [facility] CLIA [id number] [address] [place] [address] [place] Eosinophils/100 WBC (Bld) 1.0 % Normal [facility] Comment on above: Order Comment: Speci men Type: BLOOD SPECIMEN Ordering Facility: [facility] Address: [address] [place] [address] Performed By: #### 5 7021-8 #### [facility] CLIA [id number] [address] [place] [address] [place] Erythrocyte distribution width (RBC) [Ratio] 15.0 % Normal 11.5-15.0 [facility] Comment on above: Order Comment: Speci men Type: BLOOD SPECIMEN Ordering Facility: [facility] Address: [address] [place] [address] Performed By: #### 5 7021-8 #### [facility] CLIA [id number] [address] [place] [address] [place] Hematocrit (Bld) [Volume fraction] 40.6 % Normal 36.0-46.0 [facility] Comment on above: Order Comment: Speci men Type: BLOOD SPECIMEN Ordering Facility: [facility] Address: [address] [place] [address] Performed By: #### 5 7021-8 #### [facility] CLIA [id number] [address] [place] [address] [place] Hemoglobin (Bld) [Mass/Vol] 13.6 g/dL Normal 11.5-15.5 [facility] Comment on above: Order Comment: Speci men Type: BLOOD SPECIMEN Ordering Facility: [facility] Address: [address] [place] [address] Performed By: #### 5 7021-8 #### [facility] CLIA [id number] [address] [place] [address] [place] Immature granulocytes (Bld) [#/Vol] 10*3/uL Normal <0.10 [facility] Comment on above: Order Comment: Speci men Type: BLOOD SPECIMEN Ordering Facility: [facility] Address: [address] [place] [address] Performed By: #### 5 7021-8 #### [facility] CLIA [id number] [address] [place] [address] [place] Immature granulocytes/100 WBC (Bld) 0.2 % Normal [facility] Comment on above: Order Comment: Speci men Type: BLOOD SPECIMEN Ordering Facility: [facility] Address: [address] [place] [address] Performed By: #### 5 7021-8 #### [facility] CLIA [id number] [address] [place] [address] [place] Lymphocytes (Bld) [#/Vol] 1.90 10*3/uL Normal 1.00-4.00 [facility] Comment on above: Order Comment: Speci men Type: BLOOD SPECIMEN Ordering Facility: [facility] Address: [address] [place] [address] Performed By: #### 5 7021-8 #### [facility] CLIA [id number] [address] [place] [address] [place] Lymphocytes/100 WBC (Bld) 19.5 % Normal [facility] Comment on above: Order Comment: Speci men Type: BLOOD SPECIMEN Ordering Facility: [facility] Address: [address] [place] [address] Performed By: #### 5 7021-8 #### [facility] CLIA [id number] [address] [place] [address] [place] MCH (RBC) [Entitic mass] 29.1 pg Normal 26.0-34.0 [facility] Comment on above: Order Comment: Speci men Type: BLOOD SPECIMEN Ordering Facility: [facility] Address: [address] [place] [address] Performed By: #### 5 7021-8 #### [facility] CLIA [id number] [address] [place] [address] [place] MCHC (RBC) [Mass/Vol] 33.5 g/dL Normal 30.5-36.0 [facility] Comment on above: Order Comment: Speci men Type: BLOOD SPECIMEN Ordering Facility: [facility] Address: [address] [place] [address] Performed By: #### 5 7021-8 #### [facility] CLIA [id number] [address] [place] [address] [place] MCV (RBC) [Entitic vol] 86.9 fL Normal 80.0-100.0 [facility] Comment on above: Order Comment: Speci men Type: BLOOD SPECIMEN Ordering Facility: [facility] Address: [address] [place] [address] Performed By: #### 5 7021-8 #### [facility] CLIA [id number] [address] [place] [address] [place] Monocytes (Bld) [#/Vol] 0.66 10*3/uL Normal <0.87 [facility] Comment on above: Order Comment: Speci men Type: BLOOD SPECIMEN Ordering Facility: [facility] Address: [address] [place] [address] Performed By: #### 5 7021-8 #### [facility] CLIA [id number] [address] [place] [address] [place] Monocytes/100 WBC (Bld) 6.8 % Normal [facility] Comment on above: Order Comment: Speci men Type: BLOOD SPECIMEN Ordering Facility: [facility] Address: [address] [place] [address] Performed By: #### 5 7021-8 #### [facility] CLIA [id number] [address] [place] [address] [place] Neutrophils (Bld) [#/Vol] 7.01 10*3/uL Normal 1.45-7.50 [facility] Comment on above: Order Comment: Speci men Type: BLOOD SPECIMEN Ordering Facility: [facility] Address: [address] [place] [address] Performed By: #### 5 7021-8 #### [facility] CLIA [id number] [address] [place] [address] [place] Neutrophils/100 WBC (Bld) 71.9 % Normal [facility] Comment on above: Order Comment: Speci men Type: BLOOD SPECIMEN Ordering Facility: [facility] Address: [address] [place] [address] Performed By: #### 5 7021-8 #### [facility] CLIA [id number] [address] [place] [address] [place] Nucleated RBC (Bld) [#/Vol] 10*3/uL Normal <0.01 [facility] Comment on above: Order Comment: Speci men Type: BLOOD SPECIMEN Ordering Facility: [facility] Address: [address] [place] [address] Performed By: #### 5 7021-8 #### [facility] CLIA [id number] [address] [place] [address] [place] Nucleated RBC/100 WBC (Bld) [Ratio] 0.0 /100 WBC Normal [facility] Comment on above: Order Comment: Speci men Type: BLOOD SPECIMEN Ordering Facility: [facility] Address: [address] [place] [address] Performed By: #### 5 7021-8 #### [facility] CLIA [id number] [address] [place] [address] [place] Platelet mean volume (Bld) [Entitic vol] 8.6 fL Low 9.0-12.7 [facility] Comment on above: Order Comment: Speci men Type: BLOOD SPECIMEN Ordering Facility: [facility] Address: [address] [place] [address] Performed By: #### 5 7021-8 #### [facility] CLIA [id number] [address] [place], [place] [address] [place] Platelets (Bld) [#/Vol] 340 10*3/uL Normal 150-400 [facility] Comment on above: Order Comment: Speci men Type: BLOOD SPECIMEN Ordering Facility: [facility] Address: [address] [place] [address] Performed By: #### 5 7021-8 #### [facility] CLIA [id number] [address] [place] [address] [place] RBC (Bld) [#/Vol] 4.67 10*6/uL Normal 3.90-5.20 [facility] Comment on above: Order Comment: Speci men Type: BLOOD SPECIMEN Ordering Facility: [facility] Address: [address] [place], [place] [address] Performed By: #### 5 7021-8 #### [facility] CLIA [id number] [address] [place], [place] [address] [place] WBC (Bld) [#/Vol] 9.75 10*3/uL Normal 3.70-11.00 [facility] Comment on above: Order Comment: Speci men Type: BLOOD SPECIMEN Ordering Facility: [facility] Address: [address] [place], [place] [address] Performed By: #### 5 7021-8 #### [facility] CLIA [id number] [address] [place], [place] [address] [facility] CT BRAIN WO IVCONon 05-12-[address] BRAIN WO IVCON * * *Final Report* * * DATE OF EXAM: May 12 2024 3:07PM [facility] 0504 - CT BRAIN WO IVCON / PROCEDURE REASON: Dizziness, non-specific * * * * Physician Interpretation * * * * EXAMINATION: CT BRAIN WO IVCON CLINICAL HISTORY: Dizziness, nonspecific TECHNIQUE: Serial axial images without IV contrast were obtained from the vertex to the foramen magnum. MQ: CTBWO_3 CT Radiation dose: Integrated Dose-Length Product (DLP) for this visit = 770.97 mGy*cm CT Dose Reduction Employed: Iterative recon COMPARISON: 01/31/2012 RESULT: Post-operative change: None. Acute change: No evidence of an acute infarct or other acute parenchymal process. Hemorrhage: No evidence of acute intracranial hemorrhage. ECASS hemorrhagic transformation score: Not Applicable Mass Lesion / Mass Effect: There is no evidence of an intracranial mass or extraaxial fluid collection. No significant mass effect. Chronic change: None apparent. Parenchyma: There is no significant volume loss. The brain parenchyma is otherwise within normal limits for age. Ventricles: The ventricles are within normal limits of size and configuration for age. Paranasal sinuses and skull base: The visualized paranasal sinuses are grossly clear. The skull base and imaged soft tissues are unremarkable. Localizer images: No acute findings IMPRESSION: No acute intracranial process. Dog License Officer Supervisor: PSCB Transcribe Date/Time: May 12 2024 3:21P Dictated by : CYNTHIA HANNA MD This examination was interpreted and the report reviewed and electronically signed by: CYNTHIA HANNA MD on May 12 2024 3:26PM EST [id number] Normal [facility] Comprehensive metabolic 2000 panelon 05-12-2024 Albumin [Mass/Vol] 3.6 g/dL Normal 3.2-5.0 [facility] Comment on above: Order Comment: Stephany turcios Type: BLOOD SPECIMEN Ordering Facility: [facility] Address: [address] [place] [address] Performed By: #### 2 4323-8 #### [facility] CLIA [id number] [address] [place], [place] [address] [place] ALP [Catalytic activity/Vol] 79 U/L Normal 45-117 [facility] Comment on above: Order Comment: Stephany turcios Type: BLOOD SPECIMEN Ordering Facility: [facility] Address: [address] [place] [address] Performed By: #### 2 4323-8 #### [facility] CLIA [id number] [address] [place] [address] [place] ALT [Catalytic activity/Vol] 25 U/L Normal 13-61 [facility] Comment on above: Order Comment: Stephany turcios Type: BLOOD SPECIMEN Ordering Facility: [facility] Address: [address] [place] [address] Result Comment: Resu lts may be falsely depressed after the administration of Sulfasalazine and/or Sulfapyridine. Performed By: #### 2 4323-8 #### [facility] CLIA [id number] [address] [place], [place] [address] [place] Anion gap [Moles/Vol] 3 mmol/L Low 5-16 [facility] Comment on above: Order Comment: Speci men Type: BLOOD SPECIMEN Ordering Facility: [facility] Address: [address] [place] [address] Performed By: #### 2 4323-8 #### [facility] CLIA [id number] [address] [place] [address] [place] AST [Catalytic activity/Vol] 18 U/L Normal 8-34 [facility] Comment on above: Order Comment: Speci men Type: BLOOD SPECIMEN Ordering Facility: [facility] Address: [address] [place] [address] Result Comment: Resu lts may be falsely depressed after the administration of Sulfasalazine and/or Sulfapyridine. Performed By: #### 2 4323-8 #### [facility] CLIA [id number] [address] [place] [address] [place] Bilirubin [Mass/Vol] 0.5 mg/dL Normal 0.2-1.0 [facility] Comment on above: Order Comment: Speci men Type: BLOOD SPECIMEN Ordering Facility: [facility] Address: [address] [place] [address] Performed By: #### 2 4323-8 #### [facility] CLIA [id number] [address] [place] [address] [place] Calcium [Mass/Vol] 9.6 mg/dL Normal 8.5-10.5 [facility] Comment on above: Order Comment: Speci men Type: BLOOD SPECIMEN Ordering Facility: [facility] Address: [address] [place] [address] Performed By: #### 2 4323-8 #### [facility] CLIA [id number] [address] [place] [address] [place] Chloride [Moles/Vol] 107 mmol/L Normal 98-107 [facility] Comment on above: Order Comment: Speci men Type: BLOOD SPECIMEN Ordering Facility: [facility] Address: [address] [place] [address] Performed By: #### 2 4323-8 #### [facility] CLIA [id number] [address] [place], [place] [address] [place] CO2 [Moles/Vol] 29 mmol/L Normal 21-32 [facility] Comment on above: Order Comment: Speci men Type: BLOOD SPECIMEN Ordering Facility: [facility] Address: [address] [place] [address] Performed By: #### 2 4323-8 #### [facility] CLIA [id number] [address] [place] [address] [place] Creatinine [Mass/Vol] 0.83 mg/dL Normal 0.51-0.95 [facility] Comment on above: Order Comment: Speci men Type: BLOOD SPECIMEN Ordering Facility: [facility] Address: [address] [place] [address] Result Comment: Jonna ents receiving either N-Acetylcysteine (NAC) or Metamizole prior to venipuncture, may have falsely depressed results. Performed By: #### 2 4323-8 #### [facility] CLIA [id number] [address] [place] [address] Creatinine and Glomerular filtration rate.predicted panel (S/P/Bld) 99 mL/min/1.73m??? Normal >=60 [facility] Comment on above: Order Comment: Speci men Type: BLOOD SPECIMEN Ordering Facility: [facility] Address: [address] [place] [address] Result Comment: Shanell mated Glomerular Filtration Rate (eGFR) is calculated using the 2020 CKD-EPI creatinine equation. This equation utilizes serum creatinine, sex, and age as parameters. The creatinine assay has traceable calibration to isotope dilution-mass spectrometry. Refer to KDIGO guidelines for clinical interpretation. In patients with unstable renal function, e.g. those with acute kidney injury, the eGFR may not accurately reflect actual GFR. Performed By: #### 2 4323-8 #### [facility] CLIA [id number] [address] [place] [address] [place] Glucose [Mass/Vol] 96 mg/dL Normal 70-100 [facility] Comment on above: Order Comment: Stephany turcios Type: BLOOD SPECIMEN Ordering Facility: [facility] Address: [address] [place], [place] [address] Result Comment: The [place] Diabetes Association (ADA) provides guidance for cutoff values for fasting glucose and random glucose. The ADA defines fasting as no caloric intake for at least 8 hours. Fasting plasma glucose results between 100 to 125 mg/dL indicate increased risk for diabetes (prediabetes). Fasting plasma glucose results greater than or equal to 126 mg/dL meet the criteria for diagnosis of diabetes. In the absence of unequivocal hyperglycemia, results should be confirmed by repeat testing. In a patient with classic symptoms of hyperglycemia or hyperglycemic crisis, random plasma glucose results greater than or equal to 200 mg/dL meet the criteria for diagnosis of diabetes. Reference: Standards of Medical Care in Diabetes 2016, [place] [employer] Association. Diabetes Care. 2016.39(Suppl 1). Results may be falsely elevated after the administration of Sulfapyridine. Results may be falsely depressed after the administration of Sulfasalazine. Performed By: #### 2 4323-8 #### [facility] CLIA [id number] [address] [place] [address] [place] Potassium [Moles/Vol] 3.7 mmol/L Normal 3.5-5.1 [facility] Comment on above: Order Comment: Stephany turcios Type: BLOOD SPECIMEN Ordering Facility: [facility] Address: [address] [place] [address] Performed By: #### 2 4323-8 #### [facility] CLIA [id number] [address] [place] [address] [place] Protein [Mass/Vol] 7.1 g/dL Normal 6.0-8.5 [facility] Comment on above: Order Comment: Stephany turcios Type: BLOOD SPECIMEN Ordering Facility: [facility] Address: [address] [place] [address] Performed By: #### 2 4323-8 #### [facility] CLIA [id number] [address] [place] [address] [place] Sodium [Moles/Vol] 139 mmol/L Normal 136-145 [facility] Comment on above: Order Comment: Speci men Type: BLOOD SPECIMEN Ordering Facility: [facility] Address: [address] [place], [place] [address] Performed By: #### 2 4323-8 #### [facility] CLIA [id number] [address] [place], [place] [address] [place] Urea nitrogen [Mass/Vol] 10 mg/dL Normal 7-26 [facility] Comment on above: Order Comment: Speci men Type: BLOOD SPECIMEN Ordering Facility: [facility] Address: [address] [place] [address] Performed By: #### 2 4323-8 #### [facility] CLIA [id number] [address] [place], [place] [address] [facility] ED NOTEon 05-12-2024 ED NOTE HNO ID: [id number] Author: KEN VASQUEZ Tech Service: ? Author Type: Centrifugal Casting Machine Tender Type: ED Notes Filed: 05/12/2024 20:37 Note Text: [facility] ED NOTE HNO ID: [id number] Author: VIRGIE PAREKH Medic Service: ? Author Type: Dairy Machine Operator Farmworker and Centrifugal Casting Machine Tender Type: ED Notes Filed: 05/12/2024 20:19 Note Text: Bed: -ED Expected date: 05/12/24 Expected time: Means of arrival: Comments: EMS [facility] ED NOTE HNO ID: [id number] Author: JESSIE PURDY RN Service: Emergency Medicine Author Type: Registered Nurse Type: ED Notes Filed: 05/12/2024 13:59 Note Text: Here with dizziness since January [facility] ED Triage Noteon 05-12-2024 ED Triage Note HNO ID: [id number] Author: NATHANIEL ANDERSON PA-C Service: ? Author Type: Physician Production Support Engineer Type: ED Triage Notes Filed: 05/12/2024 14:02 Note Text: ED TRIAGE PROVIDER NOTE Patient Name: Marisela Stone Service Date: 05/12/24 BRIEF HPI: This is a 29 year old female who presents to the ED with: vertigo symptoms since January. States that the dizziness is intermittent and not associated with positional changes. Also reports mild headaches. BRIEF EXAM: NAD Awake and Alert Non labored breathing No focal neurological deficits INITIAL WORKUP AND DECISION MAKING: Orders Placed This Encounter CT BRAIN WO IVCON COMPREHENSIVE METABOLIC PANEL (BMP+LFT) CBC + AUTO DIFF PREG SERUM SIGNATURE: Nathaniel Anderson PA-C Normal [facility] HCG QUALITATIVEon 05-12-2024 HCG, QUALITATIVE Negative Normal Negative [facility] Comment on above: Order Comment: Speci men Type: BLOOD SPECIMEN Ordering Facility: [facility] Address: [address] [place] [address] Performed By: #### H CG #### [facility] CLIA [id number] [facility] [place] [address] [place] Testosterone, Total / Freeon 04-23-2024 TESTOSTER,FREE 2.41 ng/dL Abnormal 0.10-0.85 [facility] Comment on above: Order Comment: N Performed By: #### L 3100.5310, L501.9520, L501.98248, L100.0100, L500.4050, L506.0400, L3300.1750, L3100.5055, L509.6000, L501.6710 ####[facility] [id number] [facility], [address] TESTOSTER,TOTAL 74 ng/dL High 13-71 [facility] Comment on above: Order Comment: N Performed By: #### L 3100.5310, L501.9520, L501.58786, L100.0100, L500.4050, L506.0400, L3300.1750, L3100.5055, L509.6000, L501.6710 ####[facility] [id number] [facility], [address] TESTOSTERONE,%F 3.25 High 0.50-2.80 [facility] Comment on above: Order Comment: N Result Comment: Perf ormed at: CB - [facility] [address], [place], [place] [id number] Hospice Nurse: Jeffry Velasquez PhD, Phone: [phone] Performed at: [facility] [address] [id number] Hospice Nurse: Martina Servin MD, Phone: [phone] Performed By: #### L 3100.5310, L501.9520, L501.80014, L100.0100, L500.4050, L506.0400, L3300.1750, L3100.5055, L509.6000, L501.6710 ####[facility] [id number] [facility] [address] [place], [place], [id number] CORTISOL SERUMon 04-19-2024 CORTISOL 10.30 ug/dL Normal 3.44-22.45 [facility] Comment on above: Result Comment: Adul t (AM) 5.27 - 22.45 ug/dL Adult (PM) 3.44 - 16.76 ug/dL Performed By: #### L 3100.5310, L501.9520, L501.60086, L100.0100, L500.4050, L506.0400, L3300.1750, L3100.5055, L509.6000, L501.6710 ####[facility] [id number] [place], [place], [id number] Absolute neutrophil countOrd ered By: Santana Hernandez on 04-17-2024 Neutrophils (Bld) [#/Vol] 5.2 10*3/uL 2.0-7.7 [facility] Albumin to globulin ratioOrd ered By: Santana Hernandez on 04-17-2024 Albumin/Globulin [Mass ratio] 1.1 {ratio} 0.9-2.4 [facility] Basophil percentageOrdered B y: Santana Hernandez on 04-17-2024 Basophils/100 WBC (Bld) 0.9 % 0-1 [facility] [facility] Bilirubin, totalOrdered By: Santana Hernandez on 04-17-2024 Bilirubin [Mass/Vol] 0.60 mg/dL 0.20-1.00 [facility] Comment on above: For patients on eltr ombopag therapy, use of Dimension [place] TBIL is not recommended. Blood urea nitrogen (BUN)/cr eatinine ratioOrdered By: Santana Hernandez on 04-17-2024 Urea nitrogen/Creatinine [Mass ratio] 10.4 mg/mg 10-20 [facility] C-reactive protein measureme nt by high sensitivity methodOrdered By: Santana Hernandez on 04-17-2024 C-Reactive Protein Extended Range 3.59 mg/L High 0.0-3.0 [facility] Comment on above: C-Reactive Protein ( CRP) provides useful information for thediagnosis, therapy and monitoring of inflammatory processesand associated diseases. For the evaluation of Relative Riskfor Cardiovascular Disease, a High Sensitivity CRP (HSCRP)should be ordered. CBC W/Diff, Automatedon 12-2 Absolute Lymph 2.09 X10 3/uL Normal 0.83-4.51 [facility] Comment on above: Performed By: #### L 3100.5310, L501.9520, L501.57848, L100.0100, L500.4050, L506.0400, L3300.1750, L3100.5055, L509.6000, L501.6710 ####[facility] [address] [place], [address] Absolute Neut 5.2 X10 3/uL Normal 2.0-7.7 [facility] Comment on above: Performed By: #### L 3100.5310, L501.9520, L501.57167, L100.0100, L500.4050, L506.0400, L3300.1750, L3100.5055, L509.6000, L501.6710 ####[facility] [address] [place], [address] Basophils/100 WBC (Bld) 0.9 % Normal 0-1 [facility] Comment on above: Performed By: #### L 3100.5310, L501.9520, L501.69276, L100.0100, L500.4050, L506.0400, L3300.1750, L3100.5055, L509.6000, L501.6710 ####[facility] [address] [place], [address] Eosinophils/100 WBC (Bld) 1.7 % Normal 0-5 [facility] Comment on above: Performed By: #### L 3100.5310, L501.9520, L501.95553, L100.0100, L500.4050, L506.0400, L3300.1750, L3100.5055, L509.6000, L501.6710 ####[facility] [address] [facility], [address] Erythrocyte distribution width (RBC) [Ratio] 13.4 % Normal 11.6-14.6 [facility] Comment on above: Performed By: #### L 3100.5310, L501.9520, L501.54623, L100.0100, L500.4050, L506.0400, L3300.1750, L3100.5055, L509.6000, L501.6710 ####[facility] [address] [facility], [address] Hematocrit (Bld) [Volume fraction] 40.7 % Normal 37-47 [facility] Comment on above: Performed By: #### L 3100.5310, L501.9520, L501.48615, L100.0100, L500.4050, L506.0400, L3300.1750, L3100.5055, L509.6000, L501.6710 ####[facility] [address] [facility], [address] Hemoglobin (Bld) [Mass/Vol] 13.8 g/dL Normal 12.0-15.0 [facility] Comment on above: Performed By: #### L 3100.5310, L501.9520, L501.70042, L100.0100, L500.4050, L506.0400, L3300.1750, L3100.5055, L509.6000, L501.6710 ####[facility] [address] [place], [address] IG% 0.400 Normal 0.0-0.9 [facility] Comment on above: Result Comment: IG% - Immature Granulocytes (promyelocytes, myelocytes and metamyelocytes) > 1% indicates that a LEFT SHIFT is Present. Performed By: #### L 3100.5310, L501.9520, L501.41343, L100.0100, L500.4050, L506.0400, L3300.1750, L3100.5055, L509.6000, L501.6710 ####[facility] [address] [place], [address] Lymphocytes/100 WBC (Bld) 25.6 % Normal 19-41 [facility] Comment on above: Performed By: #### L 3100.5310, L501.9520, L501.48932, L100.0100, L500.4050, L506.0400, L3300.1750, L3100.5055, L509.6000, L501.6710 ####[facility] [address] [place], [address] MCH (RBC) [Entitic mass] 28.8 pg Normal 27.0-32.0 [facility] Comment on above: Performed By: #### L 3100.5310, L501.9520, L501.46849, L100.0100, L500.4050, L506.0400, L3300.1750, L3100.5055, L509.6000, L501.6710 ####[facility] [address] [place], [address] MCHC (RBC) [Mass/Vol] 33.9 g/dL Normal 32-36 [facility] Comment on above: Performed By: #### L 3100.5310, L501.9520, L501.78745, L100.0100, L500.4050, L506.0400, L3300.1750, L3100.5055, L509.6000, L501.6710 ####[facility] [address] [place], [address] MCV (RBC) [Entitic vol] 85.0 fL Normal 81-99 [facility] Comment on above: Performed By: #### L 3100.5310, L501.9520, L501.64222, L100.0100, L500.4050, L506.0400, L3300.1750, L3100.5055, L509.6000, L501.6710 ####[facility] [address] [place], [address] Monocytes/100 WBC (Bld) 7.8 % Normal 0-10 [facility] Comment on above: Performed By: #### L 3100.5310, L501.9520, L501.70994, L100.0100, L500.4050, L506.0400, L3300.1750, L3100.5055, L509.6000, L501.6710 ####[facility] [address] [place], [address] Neutrophils/100 WBC (Bld) 63.6 % Normal 47-70 [facility] Comment on above: Performed By: #### L 3100.5310, L501.9520, L501.63693, L100.0100, L500.4050, L506.0400, L3300.1750, L3100.5055, L509.6000, L501.6710 ####[facility] [address] [place], [address] Nucleated RBC (Bld) [#/Vol] 0 10*3/uL Normal 0-5 [facility] Comment on above: Performed By: #### L 3100.5310, L501.9520, L501.10321, L100.0100, L500.4050, L506.0400, L3300.1750, L3100.5055, L509.6000, L501.6710 ####[facility] [address] [place], [address] Platelet mean volume (Bld) [Entitic vol] 9.0 fL Normal 6.2-12.0 [facility] Comment on above: Performed By: #### L 3100.5310, L501.9520, L501.42812, L100.0100, L500.4050, L506.0400, L3300.1750, L3100.5055, L509.6000, L501.6710 ####[facility] [address] [place], [place], [phone]) Platelets (Bld) [#/Vol] 332 10*3/uL Normal 150-450 [facility] Comment on above: Performed By: #### L 3100.5310, L501.9520, L501.15961, L100.0100, L500.4050, L506.0400, L3300.1750, L3100.5055, L509.6000, L501.6710 ####[facility] [address] [place], [place], [phone](848) RBC (Bld) [#/Vol] 4.79 10*6/uL Normal 4.2-5.4 [facility] Comment on above: Performed By: #### L 3100.5310, L501.9520, L501.93841, L100.0100, L500.4050, L506.0400, L3300.1750, L3100.5055, L509.6000, L501.6710 ####[facility] [address] [place], [place], [phone]([phone] RDW SD 41.8 fl Normal 35.1-43.9 [facility] Comment on above: Performed By: #### L 3100.5310, L501.9520, L501.94616, L100.0100, L500.4050, L506.0400, L3300.1750, L3100.5055, L509.6000, L501.6710 ####[facility] [address] [place], [address] WBC (Bld) [#/Vol] 8.2 10*3/uL Normal 4.4-11.0 [facility] Comment on above: Performed By: #### L 3100.5310, L501.9520, L501.15697, L100.0100, L500.4050, L506.0400, L3300.1750, L3100.5055, L509.6000, L501.6710 ####[facility] [address] [place], [address] CRPon 04-17-2024 C-REACTIVE PROT 3.59 mg/L High 0.0-3.0 [facility] Comment on above: Order Comment: N Result Comment: C-Re active Protein (CRP) provides useful information for the diagnosis, therapy and monitoring of inflammatory processes and associated diseases. For the evaluation of Relative Risk for Cardiovascular Disease, a High Sensitivity CRP (HSCRP) should be ordered. Performed By: #### L 3100.5310, L501.9520, L501.53804, L100.0100, L500.4050, L506.0400, L3300.1750, L3100.5055, L509.6000, L501.6710 ####[facility] [address] [place], [address] Carbon dioxide measurementOr dered By: Santana Hernandez on 04-17-2024 CO2 [Moles/Vol] 28.0 mmol/L 21.0-32.0 [facility] Chloride measurementOrdered By: Santana Hernandez on 04-17-2024 Chloride [Moles/Vol] 108 mmol/L High 98-107 [facility] Comprehensive Metabolic Prof ilon 04-17-2024 Albumin [Mass/Vol] 3.6 g/dL Normal 3.2-5.0 [facility] Comment on above: Order Comment: N Performed By: #### L 3100.5310, L501.9520, L501.20390, L100.0100, L500.4050, L506.0400, L3300.1750, L3100.5055, L509.6000, L501.6710 ####[facility] [address] [place], [address] Albumin/Globulin [Mass ratio] 1.1 {ratio} Normal 0.9-2.4 [facility] Comment on above: Order Comment: N Performed By: #### L 3100.5310, L501.9520, L501.55500, L100.0100, L500.4050, L506.0400, L3300.1750, L3100.5055, L509.6000, L501.6710 ####[facility] [address] [place], [address] ALK P 67 U/L Normal 45-117 [facility] Comment on above: Order Comment: N Performed By: #### L 3100.5310, L501.9520, L501.06917, L100.0100, L500.4050, L506.0400, L3300.1750, L3100.5055, L509.6000, L501.6710 ####[facility] [address] [place], [address] ALT [Catalytic activity/Vol] 22 U/L Normal 13-56 [facility] Comment on above: Order Comment: N Performed By: #### L 3100.5310, L501.9520, L501.57822, L100.0100, L500.4050, L506.0400, L3300.1750, L3100.5055, L509.6000, L501.6710 ####[facility] [address] [place], [address] AST [Catalytic activity/Vol] 14 U/L Low 15-37 [facility] Comment on above: Order Comment: N Performed By: #### L 3100.5310, L501.9520, L501.83870, L100.0100, L500.4050, L506.0400, L3300.1750, L3100.5055, L509.6000, L501.6710 ####[facility] [address] [place], [address] Bilirubin [Mass/Vol] 0.60 mg/dL Normal 0.20-1.00 [facility] Comment on above: Order Comment: N Result Comment: For patients on eltrombopag therapy, use of Dimension [place] TBIL is not recommended. Performed By: #### L 3100.5310, L501.9520, L501.55334, L100.0100, L500.4050, L506.0400, L3300.1750, L3100.5055, L509.6000, L501.6710 ####[facility] [address] [place], [place], [phone] BUN/CRE 10.4 RATIO Normal 10-20 [facility] Comment on above: Order Comment: N Performed By: #### L 3100.5310, L501.9520, L501.71485, L100.0100, L500.4050, L506.0400, L3300.1750, L3100.5055, L509.6000, L501.6710 ####[facility] [address] [place], [place], [phone](253) CA,Total 8.8 mg/dL Normal 8.5-10.1 [facility] Comment on above: Order Comment: N Performed By: #### L 3100.5310, L501.9520, L501.63465, L100.0100, L500.4050, L506.0400, L3300.1750, L3100.5055, L509.6000, L501.6710 ####[facility] [address] [place], [address] Chloride [Moles/Vol] 108 mmol/L High 98-107 [facility] Comment on above: Order Comment: N Performed By: #### L 3100.5310, L501.9520, L501.04897, L100.0100, L500.4050, L506.0400, L3300.1750, L3100.5055, L509.6000, L501.6710 ####[facility] [address] [place], [address] CO2 [Moles/Vol] 28.0 mmol/L Normal 21.0-32.0 [facility] Comment on above: Order Comment: N Performed By: #### L 3100.5310, L501.9520, L501.73653, L100.0100, L500.4050, L506.0400, L3300.1750, L3100.5055, L509.6000, L501.6710 ####[facility] [address] [place], [address] Creatinine [Mass/Vol] 0.86 mg/dL Normal 0.55-1.02 [facility] Comment on above: Order Comment: N Result Comment: The validity of the calculated GFR GFRAA in patients over 70 years has not been determined. Clinical correlation is essential. Performed By: #### L 3100.5310, L501.9520, L501.73760, L100.0100, L500.4050, L506.0400, L3300.1750, L3100.5055, L509.6000, L501.6710 ####[facility] [address] [place], [address] EST GFR - AA 101 mL/min Normal >60 [facility] Comment on above: Order Comment: N Result Comment: Afri can Swazi GFR Calc Performed By: #### L 3100.5310, L501.9520, L501.59064, L100.0100, L500.4050, L506.0400, L3300.1750, L3100.5055, L509.6000, L501.6710 ####[facility] [address] [place], [place], [phone](745) GAP 2 Low 5-15 [facility] Comment on above: Order Comment: N Performed By: #### L 3100.5310, L501.9520, L501.92484, L100.0100, L500.4050, L506.0400, L3300.1750, L3100.5055, L509.6000, L501.6710 ####[facility] [address] [place], [place], [phone](252) GFR/1.73 sq M.predicted among non-blacks MDRD (S/P/Bld) [Vol rate/Area] 83 mL/min/{1.73_m2} Normal >60 [facility] Comment on above: Order Comment: N Result Comment: Non- GFR Calc Performed By: #### L 3100.5310, L501.9520, L501.39533, L100.0100, L500.4050, L506.0400, L3300.1750, L3100.5055, L509.6000, L501.6710 ####[facility] [address] [place], [place], [phone](048) Globulin (S) [Mass/Vol] 3.4 g/dL Normal 2.2-4.2 [facility] Comment on above: Order Comment: N Performed By: #### L 3100.5310, L501.9520, L501.77130, L100.0100, L500.4050, L506.0400, L3300.1750, L3100.5055, L509.6000, L501.6710 ####[facility] [address] [place], [address] Glucose [Mass/Vol] 97 mg/dL Normal 74-106 [facility] Comment on above: Order Comment: N Performed By: #### L 3100.5310, L501.9520, L501.40529, L100.0100, L500.4050, L506.0400, L3300.1750, L3100.5055, L509.6000, L501.6710 ####[facility] [address] [place], [address] Potassium [Moles/Vol] 3.7 mmol/L Normal 3.5-5.1 [facility] Comment on above: Order Comment: N Performed By: #### L 3100.5310, L501.9520, L501.82897, L100.0100, L500.4050, L506.0400, L3300.1750, L3100.5055, L509.6000, L501.6710 ####[facility] [address] [place], [address] Sodium [Moles/Vol] 138 mmol/L Normal 136-145 [facility] Comment on above: Order Comment: N Performed By: #### L 3100.5310, L501.9520, L501.17168, L100.0100, L500.4050, L506.0400, L3300.1750, L3100.5055, L509.6000, L501.6710 ####[facility] [address] [place], [address] T PROT 7.0 g/dL Normal 6.4-8.2 [facility] Comment on above: Order Comment: N Performed By: #### L 3100.5310, L501.9520, L501.52716, L100.0100, L500.4050, L506.0400, L3300.1750, L3100.5055, L509.6000, L501.6710 ####[facility] [address] [place], [address] Urea nitrogen [Mass/Vol] 9 mg/dL Normal 7-18 [facility] Comment on above: Order Comment: N Performed By: #### L 3100.5310, L501.9520, L501.42886, L100.0100, L500.4050, L506.0400, L3300.1750, L3100.5055, L509.6000, L501.6710 ####[facility] [address] [place], [address] Cortisol [Mass/Vol]Ordered B y: Santana Hernandez on 04-17-2024 Cortisol 10.30 ug/dL 3.44-22.45 [facility] Comment on above: Adult (AM) 5.27 - 22 .45 ug/dL Adult (PM) 3.44 - 16.76 ug/dL Direct serum free thyroxine (FT4) measurementOrdered By: Santana Hernandez on 04-17-2024 Free T4 [Mass/Vol] 1.42 ng/dL 0.76-1.46 [facility] Eosinophil percentageOrdered By: Santana Hernandez on 04-17-2024 Eosinophils/100 WBC (Bld) 1.7 % 0-5 [facility] Erythrocyte distribution wid th (RBC) [Ratio]Ordered By: Santana Hernandez on 04-17-2024 Erythrocyte distribution width (RBC) [Entitic vol] 41.8 fL 35.1-43.9 [facility] Erythrocyte distribution wid th ratioOrdered By: Santana Hernandez on 04-17-2024 Erythrocyte distribution width (RBC) [Ratio] 13.4 % 11.6-14.6 [facility] Estimated glomerular filtrat ion rate (GFR) AmericanOrdered By: Santana Hernandez on 04-17-2024 Estimated GFR (MDRD) Amer 101 mL/min >60 [facility] Comment on above: GFR Calc Estradiolon 04-17-2024 ESTRADIOL 47.9 pg/mL Normal [facility] Comment on above: Order Comment: N Result Comment: NORM AL REFERENCE RANGES FEMALE FOLLICULAR 21.4 - 164.8 pg/mL MID-CYCLE PEAK 49.9 - 367.2 pg/mL LUTEAL 40.2 - 259.0 pg/mL POST-MENOPAUSAL ON MHT <11.0 - 462.1 pg/mL NOT ON MHT <11.0 - 58.3 pg/mL MALE <11.0 - 52.5 pg/mL NOTE: [employer] HAS CONFIRMED THE DRUG FULVETRANT (FASLODEX) MAY CAUSE FALSELY ELEVATED ESTRADIOL RESULTS WHEN USING THIS TEST METHOD. IF PATIENT IS TAKING FULVESTRANT AN ALTERNATIVE METHOD SHOULD BE USED TO DETERMINE ESTRADIOL CONCENTRATION. Performed By: #### L 3100.5310, L501.9520, L501.04379, L100.0100, L500.4050, L506.0400, L3300.1750, L3100.5055, L509.6000, L501.6710 ####[facility] [address] [place], [address] Estradiol measurementOrdered By: Santana Hernandez on 04-17-2024 Estradiol (E2) Level 47.9 pg/mL [facility] Comment on above: NORMAL REFERENCE RAN GES FEMALE FOLLICULAR 21.4 - 164.8 pg/mL MID-CYCLE PEAK 49.9 - 367.2 pg/mL LUTEAL 40.2 - 259.0 pg/mL POST-MENOPAUSAL ON MHT <11.0 - 462.1 pg/mL NOT ON MHT <11.0 - 58.3 pg/mL MALE <11.0 - 52.5 pg/mL NOTE:[employer] HAS CONFIRMED THE DRUG FULVETRANT (FASLODEX) MAY CAUSE FALSELY ELEVATED ESTRADIOL RESULTS WHEN USING THIS TEST METHOD. IF PATIENT IS TAKING FULVESTRANT AN ALTERNATIVE METHOD SHOULD BE USED TO DETERMINE ESTRADIOL CONCENTRATION. FSH and LHon 04-17-2024 FSH 4.0 mIU/mL Normal [facility] Comment on above: Order Comment: N Result Comment: NORMAL REFERENCE RANGES FEMALE FOLLICULAR 2.3 - 12.6 mIU/mL MID-CYCLE PEAK 5.2 - 17.5 mIU/mL LUTEAL 1.7 - 12.9 mIU/mL POST-MENOPAUSAL ON MHT 5.9 - 72.8 mIU/mL NOT ON MHT 12.7 - 132.2 mlU/mL MALE 0.7 - 10.8 mIU/mL Performed By: #### L 3100.5310, L501.9520, L501.46844, L100.0100, L500.4050, L506.0400, L3300.1750, L3100.5055, L509.6000, L501.6710 ####[facility] [address] [place], [address] LH 11.7 mIU/mL Normal [facility] Comment on above: Order Comment: N Result Comment: NORMAL REFERENCE RANGES FEMALE FOLLICULAR 1.9 - 26.2 mIU/mL MID-CYCLE PEAK 22.8 - 76.1 mIU/mL LUTEAL 0.6 - 16.6 mIU/mL POST-MENOPAUSAL ON MHT 1.1 - 52.4 mIU/mL NOT ON MHT 8.6 - 61.8 mIU/mL MALE 1.2 - 10.6 mIU/mL Performed By: #### L 3100.5310, L501.9520, L501.19137, L100.0100, L500.4050, L506.0400, L3300.1750, L3100.5055, L509.6000, L501.6710 ####[facility] [address] [facility] [address] [place], [place], [phone] Follicle stimulating hormone (FSH) levelOrdered By: Santana Hernandez on 04-17-2024 Follicle Stimulating Hormone 4.0 mIU/mL [facility] Comment on above: NORMAL REFERENCE RAN GES FEMALE FOLLICULAR 2.3 - 12.6 mIU/mL MID-CYCLE PEAK 5.2 - 17.5 mIU/mL LUTEAL 1.7 - 12.9 mIU/mL POST-MENOPAUSAL ON MHT 5.9 - 72.8 mIU/mL NOT ON MHT 12.7 - 132.2 mlU/mL MALE 0.7 - 10.8 mIU/mL Free T3on 04-17-2024 Free T3 [Mass/Vol] 2.8 pg/mL Normal 2.18-3.98 [facility] Comment on above: Order Comment: N Performed By: #### L 3100.5310, L501.9520, L501.96359, L100.0100, L500.4050, L506.0400, L3300.1750, L3100.5055, L509.6000, L501.6710 ####[facility] [address] [place], [address] Free Z6Frpambs By: Santana abrams on 04-17-2024 Free Triiodothyronine (T3) pg/dL 2.8 pg/mL 2.18-3.98 [facility] Glomerular filtration rate ( GFR) estimationOrdered By: Santana Hernandez on 04-17-2024 Estimated GFR (MDRD) Non-Af Amer 83 mL/min >60 [facility] Comment on above: Non- GFR Calc Glucose measurementOrdered B y: Santana Hernandez on 04-17-2024 Glucose [Mass/Vol] 97 mg/dL 74-106 [facility] Hematocrit Auto (Bld) [Volum e fraction]Ordered By: Santana Hernandez on 04-17-2024 Hematocrit (Bld) [Volume fraction] 40.7 % 37-47 [facility] Hemoglobin measurementOrdere d By: Santana Hernandez on 04-17-2024 Hemoglobin (Bld) [Mass/Vol] 13.8 g/dL 12.0-15.0 [facility] Immature granulocytes/100 WB C Auto (Bld)Ordered By: Santana Hernandez on 04-17-2024 Immature granulocytes/100 WBC (Bld) 0.400 % 0.0-0.9 [facility] Comment on above: IG% - Immature Granu locytes (promyelocytes, myelocytes and metamyelocytes) > 1% indicates that a LEFT SHIFT is Present. Laboratory - Chemistry and C hemistry - challengeOrdered By: Santana Hernandez on 04-17-2024 AST [Catalytic activity/Vol] 14 U/L Low 15-37 [facility] Luteinizing hormone measurem entOrdered By: Santana Hernandez on 04-17-2024 Luteinizing Hormone 11.7 mIU/mL [facility] Comment on above: NORMAL REFERENCE RAN GES FEMALE FOLLICULAR 1.9 - 26.2 mIU/mL MID-CYCLE PEAK 22.8 - 76.1 mIU/mL LUTEAL 0.6 - 16.6 mIU/mL POST-MENOPAUSAL ON MHT 1.1 - 52.4 mIU/mL NOT ON MHT 8.6 - 61.8 mIU/mL MALE 1.2 - 10.6 mIU/mL Lymphocytes Auto (Unsp spec) [#/Vol]Ordered By: Santana Hernandez on 04-17-2024 Lymphocytes (Bld) [#/Vol] 2.09 10*3/uL 0.83-4.51 [facility] Lymphocytes/100 WBC Auto (Un sp spec)Ordered By: Santana Hernandez on 04-17-2024 Lymphocytes/100 WBC (Bld) 25.6 % 19-41 [facility] MCV (mean corpuscular volume ) determinationOrdered By: Santana Hernandez on 04-17-2024 MCV (RBC) [Entitic vol] 85.0 fL 81-99 [facility] Mean corpuscular hemoglobin (MCH) determinationOrdered By: Santana Hernandez on 04-17-2024 MCH (RBC) [Entitic mass] 28.8 pg 27.0-32.0 [facility] Mean corpuscular hemoglobin concentration (MCHC) determinationOrdered By: Santana Hernandez on 04-17-2024 MCHC (RBC) [Mass/Vol] 33.9 g/dL 32-36 [facility] Mean platelet volume determi nationOrdered By: Santana Hernandez on 04-17-2024 Platelet mean volume (Bld) [Entitic vol] 9.0 fL 6.2-12.0 [facility] Monocyte percentageOrdered B y: Santana Hernandez on 04-17-2024 Monocytes/100 WBC (Bld) 7.8 % 0-10 [facility] Neutrophil percentageOrdered By: Santana Hernandez on 04-17-2024 Neutrophils/100 WBC (Bld) 63.6 % 47-70 [facility] Nucleated red blood cell per centageOrdered By: Santana Hernandez on 04-17-2024 Nucleated RBC/100 WBC (Bld) [Ratio] 0 % 0-5 [facility] Platelet countOrdered By: Isatu Hernandez on 04-17-2024 Platelets (Bld) [#/Vol] 332 10*3/uL 150-450 [facility] Potassium measurementOrdered By: Santana Hernandez on 04-17-2024 Potassium [Moles/Vol] 3.7 mmol/L 3.5-5.1 [facility] RBC Auto (Bld) [#/Vol]Ordere d By: Santana Hernandez on 04-17-2024 RBC (Bld) [#/Vol] 4.79 10*6/uL 4.2-5.4 [facility] Serum anion gap measurementO rdered By: Santana Hernandez on 04-17-2024 Anion gap [Moles/Vol] 2 mmol/L Low 5-15 [facility] Serum globulin measurementOr dered By: Santana Hernandez on 04-17-2024 Globulin (S) [Mass/Vol] 3.4 g/dL 2.2-4.2 [facility] Serum or plasma alanine bazzi otransferase (ALT) measurementOrdered By: Santana Hernandez on 04-17-2024 ALT [Catalytic activity/Vol] 22 U/L 13-56 [facility] Serum or plasma albumin rylan urement (mass/volume)Ordered By: Santana Hernandez on 04-17-2024 Albumin [Mass/Vol] 3.6 g/dL 3.2-5.0 [facility] Serum or plasma alkaline yeyo sphatase measurementOrdered By: Santana Hernandez on 04-17-2024 ALP [Catalytic activity/Vol] 67 U/L 45-117 [facility] Serum or plasma calcium rylan urement (mass/volume)Ordered By: Santana Hernandez on 04-17-2024 Calcium [Mass/Vol] 8.8 mg/dL 8.5-10.1 [facility] Serum or plasma creatinine m easurement (mass/volume)Ordered By: Santana Hernandez on 04-17-2024 Creatinine [Mass/Vol] 0.86 mg/dL 0.55-1.02 [facility] Comment on above: The validity of the calculated GFR & GFRAA in patients over 70 years has not been determined. Clinical correlation is essential. Serum or plasma urea nitroge n measurement (mass/volume)Ordered By: Santana Hernandez on 04-17-2024 Urea nitrogen [Mass/Vol] 9 mg/dL 7-18 [facility] Sodium levelOrdered By: Jesika Hernandez on 04-17-2024 Sodium [Moles/Vol] 138 mmol/L 136-145 [facility] T4 Free Directon 04-17-2024 T4 FREE DIRECT 1.42 ng/dL Normal 0.76-1.46 [facility] Comment on above: Order Comment: N Performed By: #### L 3100.5310, L501.9520, [id number], L100.0100, L500.4050, L506.0400, L3300.1750, L3100.5055, L509.6000, L501.6710 ####[facility] [id number] [place], [address] TSH QnOrdered By: Santana Norman hner on 04-17-2024 Thyroid Stimulating Hormone (TSH) 1.440 uIU/mL 0.358-3.740 [facility] Testosterone Free [Mass/Vol] Ordered By: Santana Hernandez on 04-17-2024 Free Testosterone 2.41 ng/dL High 0.10-0.85 [facility] Testosterone Free/Testostero ne.total [Mass fraction]Ordered By: Santana Hernandez on 04-17-2024 Percent Free Testosterone 3.25 % High 0.50-2.80 [facility] Comment on above: Performed at: [address] [id number] Director: Jeffry Velasquez PhD, Phone: [phone] at: - [facility] [id number] Director: Martina Servin MD, Phone: [phone] Testosterone, totalOrdered B y: Santana Hernandez on 04-17-2024 Testosterone [Mass/Vol] 74 ng/dL High 13-71 [facility] Thyroid Stim Hormone (TSH)on 04-17-2024 TSH 1.440 uIU/mL Normal 0.358-3.740 [facility] Comment on above: Order Comment: N Performed By: #### L 3100.5310, L501.9520, L501.86163, L100.0100, L500.4050, L506.0400, L3300.1750, L3100.5055, L509.6000, L501.6710 ####[facility] [id number] [place], [address] Total proteinOrdered By: Yesenia Hernandez on 04-17-2024 Protein [Mass/Vol] 7.0 g/dL 6.4-8.2 [facility] White blood cell (WBC) count Ordered By: Santana Hernandez on 04-17-2024 WBC (Bld) [#/Vol] 8.2 10*3/uL 4.4-11.0 [facility] CNOVon 04-13-2024 CNOV Office Visit (UCTR ) -------- STONEMARISELA JIMENES Jenny ([id number]) 1995 F Date Time Provider Department 04/13/24 3:30 PM AMAURY BARGER [facility] During your visit today, we recorded the following information about you: Temperature Pulse Respiration Blood pressure 98.5 degrees 90/minute 18/minute 137/85 Weight 98.8 kg Amaury Barger APRN.AREA SALES MANAGER 04/13/2024 3:39 PM Signed CC: Patient presents with: Head Congestion: Sinus pain and pressure, bilateral ear ringing, dizziness, nausea X3 weeks, has been on amox HPI: Marisela Jenny Chase is a 28 year old female who presents to the office with complaint of head congestion, cough, nonproductive, and sinus symptoms for 3 weeks. Symptoms are staying the same. Associated symptoms includes nasal congestion and facial pain/pressure. Denies fever, nausea, vomiting , and diarrhea. Treatments tried include amoxicillin so far. with no relief of symptoms. Sick contacts: unknown. History of asthma, frequent episodes of bronchitis, chronic bronchitis, bronchiectasis or COPD: No Smoker: No Seasonal/environmental allergies: No The ROS is otherwise negative. The patient's pmh, medications, allergies, and past visits are reviewed. PHYSICAL EXAM: BP 137/85 Pulse 90 Temp 36.9 ?C (98.5 ?F) Resp 18 Wt 98.8 kg (217 lb 13 oz) LMP 07/14/2017 SpO2 99% No BMI 37.19 kg/m? General appearance: alert, cooperative, pleasant, in no acute distress Head: Normocephalic Eyes: EOM's intact, conjunctiva pink and moist, no icterus, sclera white, non-injected Ears: Right ear: External ear/canal- Normal, TM - clear with good landmarks. Left ear: External ear/canal- Normal, TM - clear with good landmarks Oropharynx:mild erythema, without exudates present uvula midline Heart: Negative. RRR without obvious murmur, gallop, or rubs. No ectopy. Lungs: clear to auscultation, without rales or wheeze, good air exchange PAST MEDICAL HISTORY Diagnosis Date Appendicitis 06/03/2011 Chlamydia infection 2013 History of ovarian cyst 09/11/2011 PMH - PAST MEDICAL HISTORY OF 12/01/08 normal. color vision Right ovarian cyst Thyroid nodule 08/06/2018 PAST SURGICAL HISTORY Procedure Laterality Date DELIVERY ONLY 09/02/15 , low transverse EXTRACTION, ERUPTED TOOTH OR EXPOSED ROOT (ELEVATION AND/OR FORCEPS REMOVAL) 11/21/13 x2 LAPAROSCOPIC APPENDECTOMY 06-03-11 PAST SURGICAL HISTORY OF 10/18/13 glass removed from right hand ALLERGIES Codeine MEDICATIONS apixaban (ELIQUIS) 5 mg tab(s) Take by mouth two times a day. spironolactone (ALDACTONE) 100 mg tablet Take 100 mg by mouth once daily. meclizine (ANTIVERT) 25 mg tab TAKE 1 TABLET BY MOUTH THREE TIMES A DAY NEEDED FOR DIZZINESS (Patient not taking: Reported on 04/13/2024) cefUROXime (CEFTIN) 500 mg tablet (Patient not taking: Reported on 04/13/2024) Amoxicillin 500 mg tablet (Patient not taking: Reported on 04/13/2024) FAMILY HISTORY Problem Relation Age of Onset Hypertension Maternal Grandmother Lipids Maternal Grandfather High Cholesterol other (past) Paternal Grandmother brain stem disorder. Breast Cancer Other Maternal Second Cousin Cancer Other Cervical-Maternal Side Social History Tobacco Use Smoking status: Former Current packs/day: 0.50 Types: Cigarettes Smokeless tobacco: Never Tobacco comments: quit when found out about Substance Use Topics Alcohol use: Yes Comment: occasional Drug use: No ASSESSMENT/PLAN: 1. Rhinosinusitis - ICD9: 473.9, ICD10: J32.9 - DOXYCYCLINE HYCLATE 100 MG TABLET - FLUTICASONE PROPIONATE 50 MCG/ACTUATION NASAL SPRAY,SUSPENSION Prescription instructions reviewed with patient as applicable. Potential red flag symptoms discussed with the patient. Reviewed appropriate action plan to take if red flag symptoms occur. Patient agreeable to treatment plan. Has ENT appt on apr 22. Amaury Barger APRN.AREA SALES MANAGER Allergies As of Date: 04/13/2024 Noted Allergy Reaction CODEINE 07/27/2020 14 - Other: See Comments Date Reviewed: 04/13/2024 Reviewed by: Belgica Stewart MA - Fully Assessed Reason for Visit: Head Congestion [234] Cmt: Sinus pain and pressure, bilateral ear ringing, dizziness, nausea X3 weeks, has been on amox Primary Visit Diagnosis:Rhinosinusitis [J32.9] Order(s):doxycycline (VIBRA-TABS) 100 mg tabletTake 1 tablet by mouth two times a day for 7 days.Disp: 14 tabletRfl: 0 fluticasone (FLONASE) 50 mcg/actuation nasal sprayUse 2 Sprays in each nostril once daily. Rinse mouth after use.Disp: 1 EachRfl: 0 Prescriptions as of 04/13/2024 - meclizine (ANTIVERT) 25 mg tab TAKE 1 TABLET BY MOUTH THREE TIMES A DAY NEEDED FOR DIZZINESS - cefUROXime (CEFTIN) 500 mg tablet - Amoxicillin 500 mg tablet - apixaban (ELIQUIS) 5 mg tab(s) Take by mouth two times a day. - spironolactone (ALDACTONE) 100 mg tablet Ta (more content not included)... Normal [facility] Urgent Care Visit Reporton 1 05-31-2023 Urgent Care Visit Report [facility] [address], [address] [place] [address] OFFICE VISIT Date of Service: 03/30/24 MR#: [id number] Acct: [id number] Name: MARISELA STONE Rep #: [id number] : 1995 Provider: YASMEEN Ayala Age/Sex: 28/F Location: [facility] Status: Signed Intake Vital Signs 02/05/24 08:32 03/30/24 12:22 Height 5 ft 3 in 5 ft 4 in Weight: 225 lb 4 oz 219 lb BMI 39.9 37.5 BP 131/83 H 110/60 Blood Pressure Location Rt brachial Lt brachial Position Sitting Sitting Respiration 16 14 Pulse 72 61 Pulse Source Monitor NIBP Temp 98.4 F 98.4 F Temp Source Temporal Oral Pulse Oximetry (%) 97 98 Oxygen Delivery Method room air room air Intake Visit Reasons: R EAR COMPLAINT/NAUSEA Chief Complaint: ears ringing Motocross Racer Required: No Is patient in pain?: No Allergies No Known Allergies Allergy (Verified 03/30/24 12:23) Medications ???Medication ???Instructions ???Recorded ???Confirmed ???Type levonorgestrel (Mirena) 1 device intrauterine ONCE 03/27/22 03/30/24 History probiotic PO 02/20/23 03/30/24 History valacyclovir 1 gram tablet 1,000 mg PO BID PRN 02/20/23 03/30/24 History (Valtrex) apixaban 5 mg tablet (Eliquis) 5 mg PO BID #180 tabs 03/18/23 03/30/24 Rx spironolactone 100 mg tablet 100 mg PO DAILY #90 tabs 08/19/23 03/30/24 Rx cholecalciferol (vitamin D3) 50 50 mcg PO DAILY 10/09/23 03/30/24 History mcg (2,000 unit) capsule amoxicillin 500 mg tablet 500 mg PO TID #30 tabs 03/30/24 03/30/24 Rx amoxicillin 500 mg tablet 500 mg PO TID #30 tabs 03/30/24 03/30/24 Rx magnesium glycinate 100 mg (as 100 mg PO QDAY 03/30/24 03/30/24 History glycinate) tablet meclizine 25 mg tablet 25 mg PO TID PRN dizziness #14 tabs 03/30/24 03/30/24 Rx phytonadione (vitamin K1) 100 mcg 100 mcg PO QDAY 03/30/24 03/30/24 History tablet Is last menstrual period known: No Post menopausal: No Patient : No Have you fallen in the past year?: No Nurse's Note: bilateral ear ringing RT>LT and nausea x 2-3 days. pt denies pain, drainage, fever. denies recent viral illness. [facility] Medical History (Updated 03/30/24 @ 13:08 by Stanley ARANA, PA) Acute maxillary sinusitis, unspecified Familial olivopontocerebellar atrophy Dizziness Gallbladder sludge Palpitations GERD (gastroesophageal reflux disease) Anxiety Multinodular goiter DVT (deep venous thrombosis) Thyroid nodule Surgical History History of appendectomy delivery delivered Family History Unknown Hypertension Mother Diabetes Grandmother Neuropathy Social History Smoking Status: Former smoker quit date: 02/26/18 Tobacco: How many years used: 4 alcohol intake: never substance use type: does not use caffeine: Yes what type of physical activity do you participate in: walking seatbelt use: always do you feel safe at home: Yes additional social history: single- works at [employer] Chief Complaint: ears ringing Details: MARISELA STONE, is a 28 F who presents to the office today for 1 wk congestion, pnd (purulent), nausea, and right ear pain. No complaints of fever, chills, sweats, though does admit worsening dizziness over the last week as well though hard to differentiate as she describes. No complaints of chest pressure or shortness of breath or dyspnea on exertion. No qnyg-ijj-fciioht products taken to assist. No other associated symptoms and no other alleviating/aggravating factors. Patient notes due to starting Eliquis approximately a year ago status post DVT diagnosis, she has had chronic dizziness and nausea over the last 10 months wonders if there is a potential correlation. 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 ROS Const Constitutional: No other (as above) Exam Const General: cooperative, healthy appearing and no acute distress Orientation: alert and awake [facility] Head: normal to inspection Ears: hearing grossly normal bilaterally, external ears normal, TM's normal bilaterally and EAC's normal Nose: external nose normal, nares normal, septum normal and no nasal discharge Face and sinus: normal facial exam, sinuses nontender (Though bilateral maxillary fullness to palpation) and face symmetric Mouth: oral mucosae normal, lip normal, tongue normal, oropharynx normal and moist mucous membranes Throat: posterior oropharyn (more content not included)... Normal [facility] Hepatobilliary Img w/Pharm I nton 03-03-2024 Hepatobilliary Img w/Pharm Int [facility] Imaging Services [address] [place] [id number] Hepatobilliary Img w/Pharm Int MR#: [id number] Acct: [id number] Name: MARISELA STONE Rep #: [id number] : 1995 F 28 From: Santino Tavarez PCP: Dr. Santana Hernandez MD Status: REG [facility] Study: Hepatobilliary Img w/Pharm Int Date of Exam: 05/03/23 Exam# [id number] Ordering Dr: Santana Hernandez MD [id number] CLINICAL: Female,28 years old. Abdominal pain. EXAMINATION: NUCLEAR MEDICINE BILIARY SCAN WITH CCK INJECTION. TECHNIQUE: Following intravenous injection of 5 mCi technetium mebrofenin, routine biliary scan was performed. 2 mcg of CCK were injected intravenously during the examination. The gallbladder ejection fraction was calculated. COMPARISON: Right upper quadrant ultrasound of 01/31/2024 FINDINGS: There is homogenous uptake of the radiopharmaceutical by the liver. There is excretion into the common bile duct. The gallbladder is visualized normally at approximately 10 minutes. The common bile duct and small bowel loops are visualized before the end of the first hour. Following the slow infusion of 2 mcg of CCK, the gallbladder ejection fraction was calculated to be 66% at 90 minutes and 90% at 29 minutes. Normal ejection fraction should be above 35%. NM/Hepatobilliary Img w/Pharm Int IMPRESSION: 1. Normal hepatic uptake. 2. Patent common hepatic, cystic and common bile duct. 3. Normal gallbladder ejection fraction measuring 90% at 29 minutes. Electronically Signed: Santino Treviño MD at 15:15 EST , CC: Dr. Santana Hernandez MD Dog License Officer Supervisor: Signed Normal [facility] MR/BMS.IMBon 02-05-2024 MR/BMS.IMB [facility] [address] [place] [address] OFFICE VISIT Date of Service: 02/05/24 MR#: [id number] Acct: [id number] Name: MARISELA STONE Rep #: [id number] : 1995 Provider: Dr. 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 Required: No Accompanied by: Self Is patient in pain?: No Allergies codeine Adverse Reaction (Verified 02/05/24 08:27) Other Medications ???Medication ???Instructions ???Recorded ???Confirmed ???Type levonorgestrel 21 mcg/24 hr (up to 1 device intrauterine ONCE 03/27/22 02/05/24 History 8 years) 52 mg intrauterine device (Mirena) sertraline 50 mg tablet (Zoloft) 50 mg PO DAILY #90 tabs 02/22/23 10/10/24 Rx probiotic PO 02/20/23 02/05/24 History valacyclovir 1 gram tablet 1,000 mg PO BID PRN 02/20/23 02/05/24 History (Valtrex) apixaban 5 mg tablet (Eliquis) 5 mg PO BID #180 tabs 03/18/23 02/05/24 Rx spironolactone 100 mg tablet 100 mg PO DAILY #90 tabs 08/19/23 02/05/24 Rx cholecalciferol (vitamin D3) 50 50 mcg PO DAILY 10/09/23 02/05/24 History mcg (2,000 unit) capsule ondansetron 4 mg disintegrating 4 mg PO Q8H PRN PRN Nausea #10 tabs 01/28/24 02/05/24 Rx tablet PFSH Medical History (Updated 02/05/24 @ 10:[address] Santana Hernandez MD) Gallbladder sludge Palpitations GERD (gastroesophageal reflux disease) Anxiety Multinodular goiter DVT (deep venous thrombosis) Thyroid nodule Surgical History History of appendectomy delivery delivered Family History Unknown Hypertension Mother Diabetes Grandmother Neuropathy Social History Smoking Status: Former smoker quit date: 02/26/18 Tobacco: How many years used: 4 alcohol intake: never substance use type: does not use caffeine: Yes what type of physical activity do you participate in: walking seatbelt use: always do you feel safe at home: Yes additional social history: single- works at [employer] HPI Chief Complaint: ER f/u Details: MARISELA STONE, is a 28 F who presents to the office today for ER and hospital follow-up. See ER note. By description that was provided in the ER note and the patient, it would seem to me that perhaps she had a recent viral infection though she states other than sense of fogginess in the head, and the duration of the nausea, loose stools, she stated it is similar to previous episodes. In the past we discussed some of this and they recommended ultrasound right upper quadrant and HIDA scan to be done. Only recently was the ultrasound done. She has small amount of sludge versus small stones. The gallbladder wall was not thickened. Her LFTs have not been elevated in the past. No LFTs were obtained in the ER unfortunately. In any event right now she is not having any nausea, vomiting, diarrhea. She is stable as long as she is taking probiotic regularly in terms of bowel movements but if she does not, she gets loose stools back. She has not had fever or chills. HIDA scan is pending but will not be done until early February. Sister has a lot of food allergies as well as environmental and patient's mother had suggested perhaps we consider food allergy testing to see if there are any specific food allergies that could be contributing to her GI symptoms. She is still largely eating a better quality of diet, incorporating more vegetables, fruits, smaller amounts of meat. We have spent considerable time discussing dietary nutritional patterns at various visits in the past. Highly encouraged Mediterranean format as we have discussed. She does have fatty liver, insulin resistance. Review of systems per chart. Physical exam. Vital signs on chart. Sclera are clear. Neck is supple. No cervical supraclavicular lymph nodes enlarged or tender. Lungs without wheeze rhonchi rales. Heart is regular. Not tachycardic. No gallop or rub is noted. Abdomen is soft. Nontender nondistended abdomen. No clear palpable masses throughout the abdomen. No guarding, rigidity or rebound tenderness. ROS Const Constitutional: No body ache, chills, excessive sweating, fatigue, fever(s), frequent falls, headache(s), snoring, weakness or change in appetite Eyes Eyes: No blurry vision, change in vision, eye pain o (more content not included)... Normal [facility] Gallbladderon 01-31-2024 Gallbladder [facility] Imaging Services [address] [place], [place] [id number] Gallbladder MR#: [id number] Acct: [id number] Name: MARISELA STONE Rep #: [id number] : 1995 F 28 From: Michael Tavarez PCP: Dr. Santana Hernandez MD Status: [facility] CLI Study: Gallbladder Date of Exam: 01/31/24 Exam# [id number] Ordering Dr: Santana Hernandez MD [id number] STUDY: ABDOMINAL ULTRASOUND - RIGHT UPPER QUADRANT REASON FOR VISIT: Female, 28 years old. ABDOMEN PAIN Nausea vomiting bloating TECHNIQUE: Ultrasound evaluation of the right upper quadrant was performed with real-time and static sultana-scale imaging. TECHNICAL QUALITY: Adequate. COMPARISON: None FINDINGS: Liver: There is increased echogenicity consistent with fatty infiltration. The bile ducts are within normal limits. There is hepatic color flow. The direction of portal flow is hepatopetal. There is no demonstrated mass lesion. Gallbladder: Normal distended gallbladder. The gallbladder wall measures 1.5 mm. There is a negative sonographic England''s sign. There is no pericholecystic fluid. There is biliary sludge dependent within the gallbladder vs small gallstones. Common Bile Duct (C.B.D.): The common bile duct measures ( in mm): 3.9 Pancreas: Normal size of the head, body of the pancreas. There is normal echogenicity of the pancreas. There is no demonstrated pancreatic mass or cyst. Right Kidney: Normal size of the right kidney. The right kidney measures 10.8 cm. . Normal renal cortex. There is no demonstrated renal mass or cyst. There is no right hydronephrosis. Aorta: It is not visualized. There is too much overlying bowel gas. . US/Gallbladder IMPRESSION: There is biliary sludge dependent within the gallbladder vs small gallstones. Fatty liver. Electronically Signed: Michael Lopez MD at 16:50 EDT , CC: Dr. Santana Hernandez MD Dog License Officer Supervisor: Signed Normal [facility] 12 Lead EKGon 01-28-2024 12 Lead EKG [facility] Cardiovascular Services [address] [place] [address] 12 Lead EKG 01/28/24 0724 MR#: [id number] Acct: [id number] Name: MARISELA STONE Rep #: [id number] : 1995 28 From: Baljinder Monte MD Attending Dr: Status: DEP ER Ordering Dr: Ousmane Wallis DO Date: 01/28/24 Location: ED Sex: F C Admitted: Test Reason : DIZZINESS Blood Pressure : / mmHG Vent. Rate : 078 BPM Atrial Rate : 078 BPM P-R Int : 206 ms QRS Dur : 098 ms QT Int : 362 ms P-R-T Axes : 057 037 032 degrees QTc Int : 412 ms Normal sinus rhythm Normal ECG Confirmed by INGRID WILCOX, BALJINDER ([id number]), content editor ERWIN MALAVE ([id number]) on 01/30/2024 11:46:43 AM Referred By: Confirmed By:BALJINDER MONTE MD 01/30/24 1146 Date Baljinder Monte MD CC: Dr. Santana Hernandez MD; Dr. Ousmane Wallis DO Signed Normal [facility] Basic Metabolic Profile (BMP )on 01-28-2024 BUN/CRE 10.5 RATIO Normal 10-20 [facility] Comment on above: Performed By: #### L 506.0400, L500.4100, L501.9520, L501.11589, L801.1541, L506.1000, L300.8000, L500.4050, L100.0100, L4500.0100 #### [facility] [address] [place], [address] CA,Total 8.7 mg/dL Normal 8.5-10.1 [facility] Comment on above: Performed By: #### L 506.0400, L500.4100, L501.9520, L501.23343, L801.1541, L506.1000, L300.8000, L500.4050, L100.0100, L4500.0100 #### [facility] [address] [place], [address] Chloride [Moles/Vol] 106 mmol/L Normal 98-107 [facility] Comment on above: Performed By: #### L 506.0400, L500.4100, L501.9520, L501.34296, L801.1541, L506.1000, L300.8000, L500.4050, L100.0100, L4500.0100 #### [facility] [address] [place], [place], [id number] (873) CO2 [Moles/Vol] 27.0 mmol/L Normal 21.0-32.0 [facility] Comment on above: Performed By: #### L 506.0400, L500.4100, L501.9520, L501.94637, L801.1541, L506.1000, L300.8000, L500.4050, L100.0100, L4500.0100 #### [facility] [address] [place], [place], [id number] ([phone]) Creatinine [Mass/Vol] 0.95 mg/dL Normal 0.55-1.02 [facility] Comment on above: Result Comment: The validity of the calculated GFR GFRAA in patients over 70 years has not been determined. Clinical correlation is essential. Performed By: #### L 506.0400, L500.4100, L501.9520, L501.24210, L801.1541, L506.1000, L300.8000, L500.4050, L100.0100, L4500.0100 #### [facility] [address] [place], [address] ECRCL 98.95 ml/min Normal [facility] Comment on above: Performed By: #### L 506.0400, L500.4100, L501.9520, L501.08771, L801.1541, L506.1000, L300.8000, L500.4050, L100.0100, L4500.0100 #### [facility] [address] [place], [address] EST GFR - AA 90 mL/min Normal >60 [facility] Comment on above: Result Comment: Afri can Swazi GFR Calc Performed By: #### L 506.0400, L500.4100, L501.9520, L501.43180, L801.1541, L506.1000, L300.8000, L500.4050, L100.0100, L4500.0100 #### [facility] [address] [place], [address] GAP 5 Normal 5-15 [facility] Comment on above: Performed By: #### L 506.0400, L500.4100, L501.9520, L501.17608, L801.1541, L506.1000, L300.8000, L500.4050, L100.0100, L4500.0100 #### [facility] [address] [place], [address] GFR/1.73 sq M.predicted among non-blacks MDRD (S/P/Bld) [Vol rate/Area] 74 mL/min/{1.73_m2} Normal >60 [facility] Comment on above: Result Comment: Non- GFR Calc Performed By: #### L 506.0400, L500.4100, L501.9520, L501.95126, L801.1541, L506.1000, L300.8000, L500.4050, L100.0100, L4500.0100 #### [facility] [address] [place], [address] Glucose [Mass/Vol] 112 mg/dL High 74-106 [facility] Comment on above: Result Comment: Fast ing Glucose result from 100 to 125 mg/dL suggests IMPAIRED HOMEOSTASIS per A.D.A. criteria. Performed By: #### L 506.0400, L500.4100, L501.9520, L501.55885, L801.1541, L506.1000, L300.8000, L500.4050, L100.0100, L4500.0100 #### [facility] [address] [place], [address] Potassium [Moles/Vol] 3.3 mmol/L Low 3.5-5.1 [facility] Comment on above: Performed By: #### L 506.0400, L500.4100, L501.9520, L501.58830, L801.1541, L506.1000, L300.8000, L500.4050, L100.0100, L4500.0100 #### [facility] [address] [place], [address] Sodium [Moles/Vol] 138 mmol/L Normal 136-145 [facility] Comment on above: Performed By: #### L 506.0400, L500.4100, L501.9520, L501.13927, L801.1541, L506.1000, L300.8000, L500.4050, L100.0100, L4500.0100 #### [facility] [address] [place], [address] Urea nitrogen [Mass/Vol] 10 mg/dL Normal 7-18 [facility] Comment on above: Performed By: #### L 506.0400, L500.4100, L501.9520, L501.03031, L801.1541, L506.1000, L300.8000, L500.4050, L100.0100, L4500.0100 #### [facility] [address] [place], [address] CBC W/Diff, Automatedon 10-0 2-4 Absolute Lymph 1.83 X10 3/uL Normal 0.83-4.51 [facility] [facility] Comment on above: Performed By: #### L 506.0400, L500.4100, L501.9520, L501.63060, L801.1541, L506.1000, L300.8000, L500.4050, L100.0100, L4500.0100 #### [facility] [address] [place], [address] Absolute Neut 6.4 X10 3/uL Normal 2.0-7.7 [facility] Comment on above: Performed By: #### L 506.0400, L500.4100, L501.9520, L501.76114, L801.1541, L506.1000, L300.8000, L500.4050, L100.0100, L4500.0100 #### [facility] [address] [place], [address] Basophils/100 WBC (Bld) 0.6 % Normal 0-1 [facility] Comment on above: Performed By: #### L 506.0400, L500.4100, L501.9520, L501.22671, L801.1541, L506.1000, L300.8000, L500.4050, L100.0100, L4500.0100 #### [facility] [address] [place], [address] Eosinophils/100 WBC (Bld) 0.9 % Normal 0-5 [facility] Comment on above: Performed By: #### L 506.0400, L500.4100, L501.9520, L501.92893, L801.1541, L506.1000, L300.8000, L500.4050, L100.0100, L4500.0100 #### [facility] [address] [place], [address] Erythrocyte distribution width (RBC) [Ratio] 13.2 % Normal 11.6-14.6 [facility] Comment on above: Performed By: #### L 506.0400, L500.4100, L501.9520, L501.24380, L801.1541, L506.1000, L300.8000, L500.4050, L100.0100, L4500.0100 #### [facility] [address] [place], [address] Hematocrit (Bld) [Volume fraction] 40.2 % Normal 37-47 [facility] Comment on above: Performed By: #### L 506.0400, L500.4100, L501.9520, L501.66823, L801.1541, L506.1000, L300.8000, L500.4050, L100.0100, L4500.0100 #### [facility] [address] [place], [address] Hemoglobin (Bld) [Mass/Vol] 13.3 g/dL Normal 12.0-15.0 [facility] Comment on above: Performed By: #### L 506.0400, L500.4100, L501.9520, L501.15425, L801.1541, L506.1000, L300.8000, L500.4050, L100.0100, L4500.0100 #### [facility] [address] [place], [address] IG% 0.600 Normal 0.0-0.9 [facility] Comment on above: Result Comment: IG% - Immature Granulocytes (promyelocytes, myelocytes and metamyelocytes) > 1% indicates that a LEFT SHIFT is Present. Performed By: #### L 506.0400, L500.4100, L501.9520, L501.89707, L801.1541, L506.1000, L300.8000, L500.4050, L100.0100, L4500.0100 #### [facility] [address] [place], [address] Lymphocytes/100 WBC (Bld) 20.2 % Normal 19-41 [facility] Comment on above: Performed By: #### L 506.0400, L500.4100, L501.9520, L501.58570, L801.1541, L506.1000, L300.8000, L500.4050, L100.0100, L4500.0100 #### [facility] [address] [place], [address] MCH (RBC) [Entitic mass] 28.4 pg Normal 27.0-32.0 [facility] Comment on above: Performed By: #### L 506.0400, L500.4100, L501.9520, L501.86548, L801.1541, L506.1000, L300.8000, L500.4050, L100.0100, L4500.0100 #### [facility] [address] [place], [address] MCHC (RBC) [Mass/Vol] 33.1 g/dL Normal 32-36 [facility] Comment on above: Performed By: #### L 506.0400, L500.4100, L501.9520, L501.63915, L801.1541, L506.1000, L300.8000, L500.4050, L100.0100, L4500.0100 #### [facility] [address] [place], [place], [phone] (855) MCV (RBC) [Entitic vol] 85.9 fL Normal 81-99 [facility] Comment on above: Performed By: #### L 506.0400, L500.4100, L501.9520, L501.03236, L801.1541, L506.1000, L300.8000, L500.4050, L100.0100, L4500.0100 #### [facility] [address] [place], [address] Monocytes/100 WBC (Bld) 7.0 % Normal 0-10 [facility] Comment on above: Performed By: #### L 506.0400, L500.4100, L501.9520, L501.61459, L801.1541, L506.1000, L300.8000, L500.4050, L100.0100, L4500.0100 #### [facility] [address] [place], [address] (900) Neutrophils/100 WBC (Bld) 70.7 % High 47-70 [facility] Comment on above: Performed By: #### L 506.0400, L500.4100, L501.9520, L501.10891, L801.1541, L506.1000, L300.8000, L500.4050, L100.0100, L4500.0100 #### [facility] [address] [place], [address] (385) Nucleated RBC (Bld) [#/Vol] 0 10*3/uL Normal 0-5 [facility] Comment on above: Performed By: #### L 506.0400, L500.4100, L501.9520, L501.98408, L801.1541, L506.1000, L300.8000, L500.4050, L100.0100, L4500.0100 #### [facility] [address] [place], [address] (068) Platelet mean volume (Bld) [Entitic vol] 8.6 fL Normal 6.2-12.0 [facility] Comment on above: Performed By: #### L 506.0400, L500.4100, L501.9520, L501.24541, L801.1541, L506.1000, L300.8000, L500.4050, L100.0100, L4500.0100 #### [facility] [address] [place], [address] (722) Platelets (Bld) [#/Vol] 303 10*3/uL Normal 150-450 [facility] Comment on above: Performed By: #### L 506.0400, L500.4100, L501.9520, L501.87701, L801.1541, L506.1000, L300.8000, L500.4050, L100.0100, L4500.0100 #### [facility] [address] [place], [place], [phone] (146) RBC (Bld) [#/Vol] 4.68 10*6/uL Normal 4.2-5.4 [facility] Comment on above: Performed By: #### L 506.0400, L500.4100, L501.9520, L501.61852, L801.1541, L506.1000, L300.8000, L500.4050, L100.0100, L4500.0100 #### [facility] [address] [place], [place], [id number] RDW SD 41.6 fl Normal 35.1-43.9 [facility] Comment on above: Performed By: #### L 506.0400, L500.4100, L501.9520, L501.35394, L801.1541, L506.1000, L300.8000, L500.4050, L100.0100, L4500.0100 #### [facility] [address] [place], [place], [id number] WBC (Bld) [#/Vol] 9.1 10*3/uL Normal 4.4-11.0 [facility] Comment on above: Performed By: #### L 506.0400, L500.4100, L501.9520, L501.28290, L801.1541, L506.1000, L300.8000, L500.4050, L100.0100, L4500.0100 #### [facility] [address] [place], [place], [id number] Emergency Department Summary on 01-28-2024 Emergency Department Summary [facility] Medical Records Department [address] [place] [address] Emergency Department Summary 01/28/24 MR#: [id number] Acct: [id number] Name: MARISELA STONE Rep #: [id number] : 1995 28 From: Ousmane Lee PCP: Dr. Santana Hernandez MD Status:DEP ER Location: ED HPI History of Present Illness Chief Complaint: Dizziness Informant: patient Narrative Narrative: Presents symptoms little over 24 hours reporting chills muscle aches. Had a cough 2 days ago that is resolved. Vomiting diarrhea or last 24 hours. Nonbloody. 4 bouts of vomiting, 2 bouts of diarrhea. No recent antibiotics. Denies any hematemesis, melena, or bloody stools. She is on Eliquis for DVTs with factor V Leiden. No urinary symptoms. Has an IUD therefore unknown last menstrual period. Denies sick contacts. States lightheaded symptoms denies dizzy or spinning. No syncopal episodes. No chest pains or shortness of breath. [facility] Medical History Palpitations GERD (gastroesophageal reflux disease) Anxiety Multinodular goiter DVT (deep venous thrombosis) Thyroid nodule Home Medications ???Medication ???Instructions ???Recorded ???Last Taken ???Type levonorgestrel 21 mcg/24 hr (up to 1 device intrauterine ONCE 03/27/22 Unknown History 8 years) 52 mg intrauterine device (Mirena) sertraline 50 mg tablet (Zoloft) 50 mg PO DAILY #90 tabs 06/19/22 Unknown Rx lidocaine 4 % topical gel 1 applic topical BID-QID PRN pain 02/04/23 Unknown Rx #30 grams probiotic PO 02/20/23 Unknown History valacyclovir 1 gram tablet 1,000 mg PO BID PRN 02/20/23 Unknown History (Valtrex) apixaban 5 mg tablet (Eliquis) 5 mg PO BID #180 tabs 03/18/23 Unknown Rx spironolactone 100 mg tablet 100 mg PO DAILY #90 tabs 08/19/23 Unknown Rx cholecalciferol (vitamin D3) 50 50 mcg PO DAILY 10/09/23 Unknown History mcg (2,000 unit) capsule ondansetron 4 mg disintegrating 4 mg PO Q8H PRN PRN Nausea #10 tabs 01/28/24 Unknown Rx tablet Allergy/AdvReac Type Severity Reaction Status Date / Time codeine AdvReac Other Verified 01/28/24 07:04 Family History Unknown Hypertension Mother Diabetes Grandmother Neuropathy Surgical History History of appendectomy delivery delivered Social History Smoking Status: Former smoker quit date: 02/26/18 Tobacco: How many years used: 4 alcohol intake: never substance use type: does not use caffeine: Yes what type of physical activity do you participate in: walking seatbelt use: always do you feel safe at home: Yes additional social history: single- works at [employer] ROS ED Constitutional Constitutional ED: Reports chills and fever(s); Denies sweats Eyes Eyes: Denies change in vision ENT ENT ED: Denies dysphagia or sore throat Cardiovascular Cardiovascular: Denies chest pain, leg edema, palpitations or racing heartbeat Respiratory/Chest Respiratory/Chest: Denies cough, dyspnea or dyspnea on exertion Gastrointestinal Gastrointestinal: Reports diarrhea, nausea and vomiting; Denies abdominal pain Genitourinary Genitourinary ED: Denies dysuria, hematuria or urinary frequency Musculoskeletal Musculoskeletal: Reports myalgias; Denies back pain, extremity pain or neck pain Integumentary Denies rash or wounds Neurologic Neurologic: Denies headache(s), paresthesias or weakness EXAM Physical Exam Const Vital Signs: 01/28/24 07:04 01/28/24 09:07 Temperature 97.8 F Temperature Source Temporal Pulse Rate 96 81 Respiratory Rate 18 15 Blood Pressure 153/91 H 116/71 Blood Pressure Mean 111 86 Pulse Ox 100 95 Oxygen Delivery Method Room Air Room Air Positive well nourished and well developed General Appearance ED: well developed and NAD HEENT HEENT Narrative: Mild dry mucosal membranes normocephalic and atraumatic Eyes EOMs intact bilaterally and conjunctivae normal General Eye ED: Yes normal appearance of both eyes Neck no lymphadenopathy and supple General: Negative for tenderness Chest Wall Chest: Negative for tenderness Resp normal respiratory effort and normal air movement Effort and Inspection: symmetric chest movement; Negative for respiratory distress Cardio regular rate, regular rhythm and no murmurs Peripheral Pulses: pulses 2+ throughout GI normal to inspection, nondistended, normoactive bowel sounds and non-tender GI Narrative: Negative England's and McBurney's tenderness Palpation: Negative for guarding or rebound tenderness present Back/Spine no CVA tenderness and no thoracic nor lumbar tenderness Extremity normal to inspection Gen (more content not included)... Normal [facility] M100.678on 01-28-2024 M100.678 COVID NO RESULT FLUA NO RESULT FLUB NO RESULT RSV NO RESULT SARS-CoV-2 (COVID 19) Negative INFLUENZA A Negative INFLUENZA B Negative RSV PCR Negative Normal [facility] Comment on above: Performed By: #### L 506.0400, L500.4100, L501.9520, L501.72204, L801.1541, L506.1000, L300.8000, L500.4050, L100.0100, L4500.0100 #### [facility] [address] [place], [address] ,Serum,hCG Quali.on 01-28-2024 HCG, SERUM QUAL Negative Normal [facility] Comment on above: Performed By: #### L 506.0400, L500.4100, L501.9520, L501.57751, L801.1541, L506.1000, L300.8000, L500.4050, L100.0100, L4500.0100 #### [facility] [address] [place], [address] CBC W/Diff, Automatedon - Absolute Lymph 2.34 X10 3/uL Normal 0.83-4.51 [facility] Comment on above: Performed By: #### L 500.4050, L501.2450, L100.0100 ####[facility] [address] [place], [address] Absolute Neut 6.3 X10 3/uL Normal 2.0-7.7 [facility] Comment on above: Performed By: #### L 500.4050, L501.2450, L100.0100 ####[facility] [address] [place], [address] Basophils/100 WBC (Bld) 0.6 % Normal 0-1 [facility] Comment on above: Performed By: #### L 500.4050, L501.2450, L100.0100 ####[facility] [address] [place], [address] Eosinophils/100 WBC (Bld) 1.1 % Normal 0-5 [facility] Comment on above: Performed By: #### L 500.4050, L501.2450, L100.0100 ####[facility] [address] [place], [address] Erythrocyte distribution width (RBC) [Ratio] 13.2 % Normal 11.6-14.6 [facility] Comment on above: Performed By: #### L 500.4050, L501.2450, L100.0100 ####[facility] [address] [place], [address] Hematocrit (Bld) [Volume fraction] 42.1 % Normal 37-47 [facility] Comment on above: Performed By: #### L 500.4050, L501.2450, L100.0100 ####[facility] [address] [place], [address] Hemoglobin (Bld) [Mass/Vol] 13.8 g/dL Normal 12.0-15.0 [facility] Comment on above: Performed By: #### L 500.4050, L501.2450, L100.0100 ####[facility] [address] [place], [address] IG% 0.200 Normal 0.0-0.9 [facility] Comment on above: Result Comment: IG% - Immature Granulocytes (promyelocytes, myelocytes and metamyelocytes) > 1% indicates that a LEFT SHIFT is Present. Performed By: #### L 500.4050, L501.2450, L100.0100 ####[facility] [address] [place], [address] Lymphocytes/100 WBC (Bld) 24.4 % Normal 19-41 [facility] Comment on above: Performed By: #### L 500.4050, L501.2450, L100.0100 ####[facility] [address] [place], [address] MCH (RBC) [Entitic mass] 28.2 pg Normal 27.0-32.0 [facility] Comment on above: Performed By: #### L 500.4050, L501.2450, L100.0100 ####[facility] [address] [place], [address] MCHC (RBC) [Mass/Vol] 32.8 g/dL Normal 32-36 [facility] Comment on above: Performed By: #### L 500.4050, L501.2450, L100.0100 ####[facility] [address] [place], [address] MCV (RBC) [Entitic vol] 86.1 fL Normal 81-99 [facility] Comment on above: Performed By: #### L 500.4050, L501.2450, L100.0100 ####[facility] [address] [place], [address] Monocytes/100 WBC (Bld) 8.0 % Normal 0-10 [facility] Comment on above: Performed By: #### L 500.4050, L501.2450, L100.0100 ####[facility] [address] [place], [address] Neutrophils/100 WBC (Bld) 65.7 % Normal 47-70 [facility] Comment on above: Performed By: #### L 500.4050, L501.2450, L100.0100 ####[facility] [address] [place], [address] Nucleated RBC (Bld) [#/Vol] 0 10*3/uL Normal 0-5 [facility] Comment on above: Performed By: #### L 500.4050, L501.2450, L100.0100 ####[facility] [address] [place], [address] Platelet mean volume (Bld) [Entitic vol] 8.7 fL Normal 6.2-12.0 [facility] Comment on above: Performed By: #### L 500.4050, L501.2450, L100.0100 ####[facility] [address] [place], [address] Platelets (Bld) [#/Vol] 328 10*3/uL Normal 150-450 [facility] Comment on above: Performed By: #### L 500.4050, L501.2450, L100.0100 ####[facility] [address] [place], [address] RBC (Bld) [#/Vol] 4.89 10*6/uL Normal 4.2-5.4 [facility] Comment on above: Performed By: #### L 500.4050, L501.2450, L100.0100 ####[facility] [address] [place], [address] RDW SD 41.5 fl Normal 35.1-43.9 [facility] Comment on above: Performed By: #### L 500.4050, L501.2450, L100.0100 ####[facility] [address] [place], [address] WBC (Bld) [#/Vol] 9.6 10*3/uL Normal 4.4-11.0 [facility] Comment on above: Performed By: #### L 500.4050, L501.2450, L100.0100 ####[facility] [address] [place], [address] Comprehensive Metabolic Prof ilon 10-09-2023 Albumin [Mass/Vol] 3.6 g/dL Normal 3.2-5.0 [facility] Comment on above: Performed By: #### L 500.4050, L501.2450, L100.0100 ####[facility] [address] [place], [address] Albumin/Globulin [Mass ratio] 0.9 {ratio} Normal 0.9-2.4 [facility] Comment on above: Performed By: #### L 500.4050, L501.2450, L100.0100 ####[facility] [address] [place], [address] ALK P 70 U/L Normal 45-117 [facility] Comment on above: Performed By: #### L 500.4050, L501.2450, L100.0100 ####[facility] [address] [place], [address] ALT [Catalytic activity/Vol] 21 U/L Normal 13-56 [facility] Comment on above: Performed By: #### L 500.4050, L501.2450, L100.0100 ####[facility] [address] [place], [address] AST [Catalytic activity/Vol] 16 U/L Normal 15-37 [facility] Comment on above: Performed By: #### L 500.4050, L501.2450, L100.0100 ####[facility] [address] [place], [address] Bilirubin [Mass/Vol] 0.70 mg/dL Normal 0.20-1.00 [facility] Comment on above: Result Comment: For patients on eltrombopag therapy, use of Dimension [place] TBIL is not recommended. Performed By: #### L 500.4050, L501.2450, L100.0100 ####[facility] [address] [place], [address] BUN/CRE 16.1 RATIO Normal 10-20 [facility] Comment on above: Performed By: #### L 500.4050, L501.2450, L100.0100 ####[facility] [address] [place], [address] CA,Total 9.2 mg/dL Normal 8.5-10.1 [facility] Comment on above: Performed By: #### L 500.4050, L501.2450, L100.0100 ####[facility] [address] [place], [address] Chloride [Moles/Vol] 106 mmol/L Normal 98-107 [facility] Comment on above: Performed By: #### L 500.4050, L501.2450, L100.0100 ####[facility] [address] [place], [address] CO2 [Moles/Vol] 26.0 mmol/L Normal 21.0-32.0 [facility] Comment on above: Performed By: #### L 500.4050, L501.2450, L100.0100 ####[facility] [address] [place], [address] Creatinine [Mass/Vol] 0.87 mg/dL Normal 0.55-1.02 [facility] Comment on above: Result Comment: The validity of the calculated GFR GFRAA in patients over 70 years has not been determined. Clinical correlation is essential. Performed By: #### L 500.4050, L501.2450, L100.0100 ####[facility] [address] [place], [address] EST GFR - AA 100 mL/min Normal >60 [facility] Comment on above: Result Comment: Afri can Swazi GFR Calc Performed By: #### L 500.4050, L501.2450, L100.0100 ####[facility] [address] [place], [address] GAP 5 Normal 5-15 [facility] Comment on above: Performed By: #### L 500.4050, L501.2450, L100.0100 ####[facility] [address] [place], [address] GFR/1.73 sq M.predicted among non-blacks MDRD (S/P/Bld) [Vol rate/Area] 83 mL/min/{1.73_m2} Normal >60 [facility] Comment on above: Result Comment: Non- GFR Calc Performed By: #### L 500.4050, L501.2450, L100.0100 ####[facility] [address] [place], [address] Globulin (S) [Mass/Vol] 4.0 g/dL Normal 2.2-4.2 [facility] Comment on above: Performed By: #### L 500.4050, L501.2450, L100.0100 ####[facility] [address] [place], [address] Glucose [Mass/Vol] 111 mg/dL High 74-106 [facility] Comment on above: Result Comment: Fast ing Glucose result from 100 to 125 mg/dL suggests IMPAIRED HOMEOSTASIS per A.D.A. criteria. Performed By: #### L 500.4050, L501.2450, L100.0100 ####[facility] [address] [place], [address] Potassium [Moles/Vol] 3.7 mmol/L Normal 3.5-5.1 [facility] Comment on above: Performed By: #### L 500.4050, L501.2450, L100.0100 ####[facility] [address] [place], [address] Sodium [Moles/Vol] 137 mmol/L Normal 136-145 [facility] Comment on above: Performed By: #### L 500.4050, L501.2450, L100.0100 ####[facility] [address] [place], [address] T PROT 7.6 g/dL Normal 6.4-8.2 [facility] Comment on above: Performed By: #### L 500.4050, L501.2450, L100.0100 ####[facility] [address] [place], [address] Urea nitrogen [Mass/Vol] 14 mg/dL Normal 7-18 [facility] Comment on above: Performed By: #### L 500.4050, L501.2450, L100.0100 ####[facility] [address] [place], [address] Lipaseon 10-09-2023 Lipase [Catalytic activity/Vol] 31 U/L Normal 13-75 [facility] Comment on above: Result Comment: Sheila lee note: LIPASE revised reference range effective 22. New Lipase methodology. Expected to produce lower values than the previous assay method. NEW Reference Range: 13 - 75 U/L Performed By: #### L 500.4050, L501.2450, L100.0100 ####[facility] [address] [place], [address] MR/BMS.Cristal 10-09-2023 MR/BMS.IMB [facility] [address] [place] [address] OFFICE VISIT Date of Service: 10/09/23 MR#: [id number] Acct: [id number] Name: MARISELA STONE Rep #: [id number] : 1995 Provider: Dr. 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 Accompanied by: Self Is patient in pain?: No Allergies codeine Adverse Reaction (Verified 10/09/23 08:40) Other Medications ???Medication ???Instructions ???Recorded ???Confirmed ???Type levonorgestrel 21 mcg/24 hr (up to 1 device intrauterine ONCE 03/27/22 10/09/23 History 8 years) 52 mg intrauterine device (Mirena) sertraline 50 mg tablet (Zoloft) 50 mg PO DAILY #90 tabs 06/19/22 10/09/23 Rx lidocaine 4 % topical gel 1 applic topical BID-QID PRN pain 02/04/23 10/09/23 Rx #30 grams probiotic PO 02/20/23 10/09/23 History valacyclovir 1 gram tablet 1,000 mg PO BID PRN 02/20/23 10/09/23 History (Valtrex) apixaban 5 mg tablet (Eliquis) 5 mg PO BID #180 tabs 03/18/23 10/09/23 Rx spironolactone 100 mg tablet 100 mg PO DAILY #90 tabs 08/19/23 10/09/23 Rx cholecalciferol (vitamin D3) 50 50 mcg PO DAILY 10/09/23 10/09/23 History mcg (2,000 unit) capsule PFSH Medical History (Updated 10/09/23 @ 09:[address] Santana Hernandez MD) Palpitations GERD (gastroesophageal reflux disease) Anxiety Multinodular goiter DVT (deep venous thrombosis) Thyroid nodule Surgical History History of appendectomy delivery delivered Family History Unknown Hypertension Mother Diabetes Grandmother Neuropathy Social History Smoking Status: Former smoker quit date: 02/26/18 Tobacco: How many years used: 4 alcohol intake: never substance use type: does not use caffeine: Yes what type of physical activity do you participate in: walking seatbelt use: always do you feel safe at home: Yes additional social history: single- works at [employer] Chief Complaint: N/V Details: MARISELA STONE, is a 28 F who presents to the office today for GI related symptoms. During the night of the Labor Day, patient woke up with abdominal bloating, nausea and had emesis. She states the rest of the day the next day that she did not feel well overall. At the same time perhaps in retrospect, she has noticed that she does have some right neck and shoulder discomfort. She has had some problems with that in the past but usually lasted a short while. This has been more consistent and she wondered about gallbladder related. After that episode on night, she was doing okay until this past Friday, approximately 3 weeks later, she had a very similar episode and the next day, she did not eat a whole lot and seemed to do okay. On Friday she had resumed more or less regular diet and Friday night had a similar episode. She describes again being awoken through the night usually, with bloating, and the bloating does persist through the day, and discomfort, perhaps increase in the shoulder and neck discomfort and emesis. Usually single emesis of more or less undigested food she states. She does not recall anything specific on Labor Day that she had eaten that might of precipitated it. However on this past Friday and Friday, she had more less fatty foods in the evening for supper. On Friday she had chicken, Eliel [employer]iel[employer] and I believe actually pizza. She generally speaking has been trying to eat a much better high-quality diet but these have been times when there had been friends around or gathering or family and that is kind of why she deviated from her good diet. No dark black or bloody stools are reported. No fever or chills but she does get sweaty when she wakes up at night with the symptoms. Review of systems per chart. Also make note that I did want to see her back at 1 point because she had made mention of shortness of breath with exertion. That has been an ongoing issue. She notes that going up steps with say a laundry basket etc., she would get some sense of shortness of breath with that. No chest pain or chest tightness. Does have family history of CAD, low HDL, elevated oxidized LDL. She has made a lot of dietary nutrit (more content not included)... [facility] [place] [facility] Comment on above: Order Comment: [id number] 23 Oxidized [id number] Oxidized LDL Result Comment: TEST RESULTS LIMITS Oxidized LDL >2500 High ng/mL 10-170 Results verified by repeat testing TESTING PERFORMED AT [facility]. ORIGINAL REPORT ON FILE IN LAB CONTAINS ADDITIONAL TEST SITE INFORMATION. Performed By: #### L 506.0400, L500.4100, L501.9520, L501.47208, L801.1541, L506.1000, L300.8000, L500.4050, L100.0100, L4500.0100 ####[facility] [address] [place], [address] Lupus Anticoagulant Compon 0 08-28-2023 aPTT Coag (Bld) [Time] 38.1 s Normal 0.0-43.[address] [facility] Comment on above: Performed By: #### L 506.0400, L500.4100, L501.9520, L501.52694, L801.1541, L506.1000, L300.8000, L500.4050, L100.0100, L4500.0100 ####[facility] [address] [place], [address] DILUTE PT (dPT) 45.2 sec Normal 0.0-47.6 [facility] Comment on above: Performed By: #### L 506.0400, L500.4100, L501.9520, L501.49373, L801.1541, L506.1000, L300.8000, L500.4050, L100.0100, L4500.0100 ####[facility] [address] [place], [address] dPT Conf. Ratio 1.23 Ratio Normal 0.00-1.34 [facility] Comment on above: Performed By: #### L 506.0400, L500.4100, L501.9520, L501.92092, L801.1541, L506.1000, L300.8000, L500.4050, L100.0100, L4500.0100 ####[facility] [address] [place], [address] DRVVT 44.2 sec Normal 0.0-47.0 [facility] Comment on above: Performed By: #### L 506.0400, L500.4100, L501.9520, L501.61408, L801.1541, L506.1000, L300.8000, L500.4050, L100.0100, L4500.0100 ####[facility] [address] [place], [place], [id number] Interpretation Comment: Normal . [facility] Comment on above: Result Comment: No l upus anticoagulant was detected. Performed at: - [facility], [place], [place] [id number] Hospice Nurse: Martina Servin MD, Phone: [phone] Performed By: #### L 506.0400, L500.4100, L501.9520, L501.97899, L801.1541, L506.1000, L300.8000, L500.4050, L100.0100, L4500.0100 ####[facility] [address], [address] THROMBIN TIME 15.9 sec Normal 0.0-23.0 [facility] Comment on above: Performed By: #### L 506.0400, L500.4100, L501.9520, L501.93896, L801.1541, L506.1000, L300.8000, L500.4050, L100.0100, L4500.0100 ####[facility] [address] [facility] [place], [place], [address] MR/BMS.DAVINBon 08-28-2023 MR/GRETEL.B [facility] [address] [place], [place] [address] OFFICE VISIT Date of Service: 08/28/23 MR#: [id number] Acct: [id number] Name: MARISELA STONE Rep #: [id number] : 1995 Provider: Dr. Santana munoz MD Age/Sex: 28/F Location: [facility] Status: Signed Intake Vital Signs 03/06/23 14:31 08/28/23 16:01 Height 5 ft 3 in 5 ft 3 in Weight: 215 lb 2 oz 218 lb 8 oz BMI 38.1 38.7 BP 119/78 120/77 Blood Pressure Location Lt brachial Rt brachial Position Sitting Sitting Respiration 16 16 Pulse 77 76 Pulse Source Monitor NIBP Temp 98.1 F 96 F L Temp Source Temporal Temporal Pulse Oximetry (%) 96 96 Oxygen Delivery Method room air room air Intake Visit Reasons: 6 M FU Chief Complaint: discuss labs Allergies codeine Adverse Reaction (Verified 08/28/23 16:04) Other Medications levonorgestrel 21 mcg/24 hr (up to 8 years) 52 mg intrauterine device (Mirena) 1 device intrauterine ONCE 03/27/22 [History Confirmed 08/28/23] sertraline 50 mg tablet (Zoloft) 50 mg PO DAILY #90 tabs 06/19/22 [Rx Confirmed 08/28/23] lidocaine 4 % topical gel 1 applic topical BID-QID PRN pain #30 grams 02/04/23 [Rx Confirmed 08/28/23] probiotic PO 02/20/23 [History Confirmed 08/28/23] valacyclovir 1 gram tablet (Valtrex) 1,000 mg PO BID PRN 02/20/23 [History Confirmed 08/28/23] apixaban 5 mg tablet (Eliquis) 5 mg PO BID #180 tabs 03/18/23 [Rx Confirmed 08/28/23] spironolactone 100 mg tablet 100 mg PO DAILY #90 tabs 08/19/23 [Rx Confirmed 08/28/23] semaglutide 0.25 mg or 0.5 mg (2 mg/3 mL) subcutaneous pen injector (Ozempic) 0.25 mg (0.368 mL) subcut QWEEK #3 mL 08/29/23 [Rx] Is last menstrual period known: No Post menopausal: No Patient : No PFSH Medical History Anxiety DVT (deep venous thrombosis) GERD (gastroesophageal reflux disease) Multinodular goiter Thyroid nodule Surgical History delivery delivered History of appendectomy Family History (Updated 08/28/23 @ 16:07 by Kaylynn Barger) Unknown Hypertension Mother Diabetes Grandmother Neuropathy Social History Smoking Status: Former smoker quit date: 02/26/18 Tobacco: How many years used: 4 alcohol intake: never substance use type: does not use caffeine: Yes what type of physical activity do you participate in: walking seatbelt use: always do you feel safe at home: Yes additional social history: single- works at [employer] HPI Chief Complaint: discuss labs Details: MARISELA STONE, is a 28 F who presents to the office today for 6-month follow-up. She has a history of factor V Leiden mutation, identified in January 2023 along with a low level of lupus anticoagulant. She has history of recurrent acute DVT and has been on treatment dose of Eliquis, 5 mg p.o. twice daily. Initial blood clot was approximately 2.5 years earlier when she was initiated on oral control and in the setting of, at that time unidentified, factor V Leiden abnormality probably both contributed to development of acute DVT. Second clot occurred last year, relatively unprovoked and therefore she is likely 1 who should probably stay on long-term prophylaxis. We decided to treat for 6 months total. She has been doing well from that standpoint and to her knowledge no recurrence of blood clot in the leg. She has been doing much better in terms of her diet pattern. Previously self-admittedly was not doing well at all but has been eating much better in terms of fruits and vegetables, smaller amounts of meat, avoiding deep-fried, junk food, processed foods, processed grain. She has had some difficulty in initiating weight loss however but overall is happy with the dietary pattern seemingly. She is on Mirena at this point. She wonders about doing something to try and get started on weight loss, in the setting of continuing on good high-quality diet. She is more active than she had been in the past as well and that is a good thing. We discussed the possibility of using Ozempic or similar product. I have asked her to discuss it with her insurance company about which medication that they would approve for weight loss purposes. She does also have history of PCOS. She is on spironolactone. Review of systems per chart. Physical exam. Vital signs on chart. We spent this visit, discussing and reviewing lab results, discussing and reviewing dietary patterns and no significant physical examination was done this visit. See my previous note. Coding Level of Care Code Off vis,est,level 3 Diagnoses Obesity (BMI 35.0-39.9 without comorbidity) E66.9 Lupus anticoagulant positive R76.0 Factor V Leiden mutation D68.51 History of DVT (deep (more content not included)... Normal [facility] Absolute lymphocyte countOrd ered By: Santana Hernandez on 08-26-2023 Lymphocytes Auto (Unsp spec) [#/Vol] 2.20 10*3/uL 0.83-4.51 [facility] Automated lymphocyte count a s percentage of total leukocytesOrdered By: Santana Hernandez on 08-26-2023 Lymphocytes/100 WBC Auto (Unsp spec) 33.4 % 19-41 [facility] Basophil percentageOrdered B y: Santana Hernandez on 08-26-2023 Basophils/100 WBC (Bld) 0.9 % 0-1 [facility] Bilirubin [Mass/Vol] 0.50 mg/dL 0.20-1.00 [facility] Comment on above: For patients on eltr ombopag therapy, use of Dimension [place] TBIL is not recommended. Chloride [Moles/Vol] 108 mmol/L 98-107 [facility] Cholesterol [Mass/Vol] 162 mg/dL <[address] [facility] Comment on above: <200 mg/dL Desirable 200-240 mg/dL Borderline >240 mg/dL High Risk Eosinophils/100 WBC (Bld) 2.6 % 0-5 [facility] Glucose [Mass/Vol] 96 mg/dL 74-106 [facility] Hemoglobin (Bld) [Mass/Vol] 13.4 g/dL 12.0-15.0 [facility] Monocytes/100 WBC (Bld) 8.0 % 0-10 [facility] Neutrophils (Bld) [#/Vol] 3.6 10*3/uL 2.0-7.7 [facility] Neutrophils/100 WBC (Bld) 54.8 % 47-70 [facility] Potassium [Moles/Vol] 4.1 mmol/L 3.5-5.1 [facility] Protein [Mass/Vol] 7.3 g/dL 6.4-8.2 [facility] Sodium [Moles/Vol] 138 mmol/L 136-145 [facility] Triglyceride [Mass/Vol] 65 mg/dL <199 [facility] Comment on above: The drugs N-Acetylcy steine and Metamizole may falsely depress this assay.Serum Triglycerides Reference Interval Normal <150 mg/dL Borderline high 150 - 199 mg/dL High 200 - 499 mg/dL Very High > or = 500 mg/dL WBC (Bld) [#/Vol] 6.6 10*3/uL 4.4-11.0 [facility] CBC W/Diff, Automatedon 04-3 0-2023 Absolute Lymph 2.20 X10 3/uL Normal 0.83-4.51 [facility] Comment on above: Performed By: #### L 506.0400, L500.4100, L501.9520, L501.05041, L801.1541, L506.1000, L300.8000, L500.4050, L100.0100, L4500.0100 #### [facility] [address] [place], [address] Absolute Neut 3.6 X10 3/uL Normal 2.0-7.7 [facility] Comment on above: Performed By: #### L 506.0400, L500.4100, L501.9520, L501.87818, L801.1541, L506.1000, L300.8000, L500.4050, L100.0100, L4500.0100 #### [facility] [address] [place], [address] Basophils/100 WBC (Bld) 0.9 % Normal 0-1 [facility] Comment on above: Performed By: #### L 506.0400, L500.4100, L501.9520, L501.17339, L801.1541, L506.1000, L300.8000, L500.4050, L100.0100, L4500.0100 #### [facility] [address] [place], [address] Eosinophils/100 WBC (Bld) 2.6 % Normal 0-5 [facility] Comment on above: Performed By: #### L 506.0400, L500.4100, L501.9520, L501.14121, L801.1541, L506.1000, L300.8000, L500.4050, L100.0100, L4500.0100 #### [facility] [address] [place], [address] Erythrocyte distribution width (RBC) [Ratio] 13.7 % Normal 11.6-14.6 [facility] Comment on above: Performed By: #### L 506.0400, L500.4100, L501.9520, L501.57216, L801.1541, L506.1000, L300.8000, L500.4050, L100.0100, L4500.0100 #### [facility] [address] [place], [place], [id number] Hematocrit (Bld) [Volume fraction] 40.8 % Normal 37-47 [facility] Comment on above: Performed By: #### L 506.0400, L500.4100, L501.9520, L501.07601, L801.1541, L506.1000, L300.8000, L500.4050, L100.0100, L4500.0100 #### [facility] [address] [place], [place], [id number] Hemoglobin (Bld) [Mass/Vol] 13.4 g/dL Normal 12.0-15.0 [facility] Comment on above: Performed By: #### L 506.0400, L500.4100, L501.9520, L501.82570, L801.1541, L506.1000, L300.8000, L500.4050, L100.0100, L4500.0100 #### [facility] [address] [place], [place], [id number] IG% 0.300 Normal 0.0-0.9 [facility] Comment on above: Result Comment: IG% - Immature Granulocytes (promyelocytes, myelocytes and metamyelocytes) > 1% indicates that a LEFT SHIFT is Present. Performed By: #### L 506.0400, L500.4100, L501.9520, L501.51381, L801.1541, L506.1000, L300.8000, L500.4050, L100.0100, L4500.0100 #### [facility] [address] [place], [address] Lymphocytes/100 WBC (Bld) 33.4 % Normal 19-41 [facility] Comment on above: Performed By: #### L 506.0400, L500.4100, L501.9520, L501.75518, L801.1541, L506.1000, L300.8000, L500.4050, L100.0100, L4500.0100 #### [facility] [address] [place], [address] MCH (RBC) [Entitic mass] 28.7 pg Normal 27.0-32.0 [facility] Comment on above: Performed By: #### L 506.0400, L500.4100, L501.9520, L501.14412, L801.1541, L506.1000, L300.8000, L500.4050, L100.0100, L4500.0100 #### [facility] [address], [address] MCHC (RBC) [Mass/Vol] 32.8 g/dL Normal 32-36 [facility] Comment on above: Performed By: #### L 506.0400, L500.4100, L501.9520, L501.30460, L801.1541, L506.1000, L300.8000, L500.4050, L100.0100, L4500.0100 #### [facility] [address] [place], [address] MCV (RBC) [Entitic vol] 87.4 fL Normal 81-99 [facility] Comment on above: Performed By: #### L 506.0400, L500.4100, L501.9520, L501.11949, L801.1541, L506.1000, L300.8000, L500.4050, L100.0100, L4500.0100 #### [facility] [address] [place], [place], [id number] (948) Monocytes/100 WBC (Bld) 8.0 % Normal 0-10 [facility] Comment on above: Performed By: #### L 506.0400, L500.4100, L501.9520, L501.32740, L801.1541, L506.1000, L300.8000, L500.4050, L100.0100, L4500.0100 #### [facility] [address] [place], [place], [id number] (346) Neutrophils/100 WBC (Bld) 54.8 % Normal 47-70 [facility] Comment on above: Performed By: #### L 506.0400, L500.4100, L501.9520, L501.26835, L801.1541, L506.1000, L300.8000, L500.4050, L100.0100, L4500.0100 #### [facility] [address] [place], [place], [phone] (951) Nucleated RBC (Bld) [#/Vol] 0 10*3/uL Normal 0-5 [facility] Comment on above: Performed By: #### L 506.0400, L500.4100, L501.9520, L501.99267, L801.1541, L506.1000, L300.8000, L500.4050, L100.0100, L4500.0100 #### [facility] [address] [place], [address] Platelet mean volume (Bld) [Entitic vol] 8.9 fL Normal 6.2-12.0 [facility] Comment on above: Performed By: #### L 506.0400, L500.4100, L501.9520, L501.96576, L801.1541, L506.1000, L300.8000, L500.4050, L100.0100, L4500.0100 #### [facility] [address] [place], [address] Platelets (Bld) [#/Vol] 363 10*3/uL Normal 150-450 [facility] Comment on above: Performed By: #### L 506.0400, L500.4100, L501.9520, L501.26614, L801.1541, L506.1000, L300.8000, L500.4050, L100.0100, L4500.0100 #### [facility] [address] [place], [address] RBC (Bld) [#/Vol] 4.67 10*6/uL Normal 4.2-5.4 [facility] Comment on above: Performed By: #### L 506.0400, L500.4100, L501.9520, L501.77695, L801.1541, L506.1000, L300.8000, L500.4050, L100.0100, L4500.0100 #### [facility] [address] [place], [address] RDW SD 44.2 fl High 35.1-43.9 [facility] Comment on above: Performed By: #### L 506.0400, L500.4100, L501.9520, L501.77662, L801.1541, L506.1000, L300.8000, L500.4050, L100.0100, L4500.0100 #### [facility] [address] [place], [address] WBC (Bld) [#/Vol] 6.6 10*3/uL Normal 4.4-11.0 [facility] Comment on above: Performed By: #### L 506.0400, L500.4100, L501.9520, L501.77907, L801.1541, L506.1000, L300.8000, L500.4050, L100.0100, L4500.0100 #### [facility] [address] [place], [address] Comprehensive Metabolic Prof ilon 08-26-2023 Albumin [Mass/Vol] 3.5 g/dL Normal 3.2-5.0 [facility] Comment on above: Order Comment: c1230 23 Oxidized LDL Performed By: #### L 506.0400, L500.4100, L501.9520, L501.96164, L801.1541, L506.1000, L300.8000, L500.4050, L100.0100, L4500.0100 #### [facility] [address] [place], [address] Albumin/Globulin [Mass ratio] 0.9 {ratio} Normal 0.9-2.4 [facility] Comment on above: Order Comment: c1230 23 Oxidized LDL Performed By: #### L 506.0400, L500.4100, L501.9520, L501.18704, L801.1541, L506.1000, L300.8000, L500.4050, L100.0100, L4500.0100 #### [facility] [address] [place], [address] ALK P 77 U/L Normal 45-117 [facility] Comment on above: Order Comment: c1230 23 Oxidized LDL Performed By: #### L 506.0400, L500.4100, L501.9520, L501.58605, L801.1541, L506.1000, L300.8000, L500.4050, L100.0100, L4500.0100 #### [facility] [address] [place], [address] ALT [Catalytic activity/Vol] 27 U/L Normal 13-56 [facility] Comment on above: Order Comment: c1230 23 Oxidized LDL Performed By: #### L 506.0400, L500.4100, L501.9520, L501.54489, L801.1541, L506.1000, L300.8000, L500.4050, L100.0100, L4500.0100 #### [facility] [address] [place], [place], [phone] (510) AST [Catalytic activity/Vol] 16 U/L Normal 15-37 [facility] Comment on above: Order Comment: c1230 23 Oxidized LDL Performed By: #### L 506.0400, L500.4100, L501.9520, L501.54915, L801.1541, L506.1000, L300.8000, L500.4050, L100.0100, L4500.0100 #### [facility] [address] [place], [address] (084) Bilirubin [Mass/Vol] 0.50 mg/dL Normal 0.20-1.00 [facility] Comment on above: Order Comment: c1230 23 Oxidized LDL Result Comment: For patients on eltrombopag therapy, use of Dimension [place] TBIL is not recommended. Performed By: #### L 506.0400, L500.4100, L501.9520, L501.38516, L801.1541, L506.1000, L300.8000, L500.4050, L100.0100, L4500.0100 #### [facility] [address] [place], [place], [phone] (492) BUN/CRE 11.4 RATIO Normal 10-20 [facility] Comment on above: Order Comment: c1230 23 Oxidized LDL Performed By: #### L 506.0400, L500.4100, L501.9520, L501.35021, L801.1541, L506.1000, L300.8000, L500.4050, L100.0100, L4500.0100 #### [facility] [address] [place], [address] (503) CA,Total 8.6 mg/dL Normal 8.5-10.1 [facility] Comment on above: Order Comment: c1230 23 Oxidized LDL Performed By: #### L 506.0400, L500.4100, L501.9520, L501.47327, L801.1541, L506.1000, L300.8000, L500.4050, L100.0100, L4500.0100 #### [facility] [address] [place], [address] Chloride [Moles/Vol] 108 mmol/L High 98-107 [facility] Comment on above: Order Comment: c1230 23 Oxidized LDL Performed By: #### L 506.0400, L500.4100, L501.9520, L501.67400, L801.1541, L506.1000, L300.8000, L500.4050, L100.0100, L4500.0100 #### [facility] [address] [place], [address] CO2 [Moles/Vol] 25.0 mmol/L Normal 21.0-32.0 [facility] Comment on above: Order Comment: c1230 23 Oxidized LDL Performed By: #### L 506.0400, L500.4100, L501.9520, L501.24828, L801.1541, L506.1000, L300.8000, L500.4050, L100.0100, L4500.0100 #### [facility] [address] [place], [address] Creatinine [Mass/Vol] 0.88 mg/dL Normal 0.55-1.02 [facility] Comment on above: Order Comment: c1230 23 Oxidized LDL Result Comment: The validity of the calculated GFR GFRAA in patients over 70 years has not been determined. Clinical correlation is essential. Performed By: #### L 506.0400, L500.4100, L501.9520, L501.06451, L801.1541, L506.1000, L300.8000, L500.4050, L100.0100, L4500.0100 #### [facility] [address] [place], [address] EST GFR - AA 99 mL/min Normal >60 [facility] Comment on above: Order Comment: c1230 23 Oxidized LDL Result Comment: Afri can Swazi GFR Calc Performed By: #### L 506.0400, L500.4100, L501.9520, L501.45099, L801.1541, L506.1000, L300.8000, L500.4050, L100.0100, L4500.0100 #### [facility] [address] [place], [place], [id number] (158) GAP 5 Normal 5-15 [facility] Comment on above: Order Comment: c1230 23 Oxidized LDL Performed By: #### L 506.0400, L500.4100, L501.9520, L501.99343, L801.1541, L506.1000, L300.8000, L500.4050, L100.0100, L4500.0100 #### [facility] [address] [place], [place], [id number] (654) GFR/1.73 sq M.predicted among non-blacks MDRD (S/P/Bld) [Vol rate/Area] 82 mL/min/{1.73_m2} Normal >60 [facility] Comment on above: Order Comment: c1230 23 Oxidized LDL Result Comment: Non- GFR Calc Performed By: #### L 506.0400, L500.4100, L501.9520, L501.86911, L801.1541, L506.1000, L300.8000, L500.4050, L100.0100, L4500.0100 #### [facility] [address] [place], [address] Globulin (S) [Mass/Vol] 3.8 g/dL Normal 2.2-4.2 [facility] Comment on above: Order Comment: c1230 23 Oxidized LDL Performed By: #### L 506.0400, L500.4100, L501.9520, L501.91693, L801.1541, L506.1000, L300.8000, L500.4050, L100.0100, L4500.0100 #### [facility] [address] [place], [address] Glucose [Mass/Vol] 96 mg/dL Normal 74-106 [facility] Comment on above: Order Comment: c1230 23 Oxidized LDL Performed By: #### L 506.0400, L500.4100, L501.9520, L501.17877, L801.1541, L506.1000, L300.8000, L500.4050, L100.0100, L4500.0100 #### [facility] [address] [place], [address] Potassium [Moles/Vol] 4.1 mmol/L Normal 3.5-5.1 [facility] Comment on above: Order Comment: c1230 23 Oxidized LDL Performed By: #### L 506.0400, L500.4100, L501.9520, L501.74920, L801.1541, L506.1000, L300.8000, L500.4050, L100.0100, L4500.0100 #### [facility] [address] [place], [address] Sodium [Moles/Vol] 138 mmol/L Normal 136-145 [facility] Comment on above: Order Comment: c1230 23 Oxidized LDL Performed By: #### L 506.0400, L500.4100, L501.9520, L501.52356, L801.1541, L506.1000, L300.8000, L500.4050, L100.0100, L4500.0100 #### [facility] [address] [place], [address] T PROT 7.3 g/dL Normal 6.4-8.2 [facility] Comment on above: Order Comment: c1230 23 Oxidized LDL Performed By: #### L 506.0400, L500.4100, L501.9520, L501.65769, L801.1541, L506.1000, L300.8000, L500.4050, L100.0100, L4500.0100 #### [facility] [address] [place], [address] Urea nitrogen [Mass/Vol] 10 mg/dL Normal 7-18 [facility] Comment on above: Order Comment: c1230 23 Oxidized LDL Performed By: #### L 506.0400, L500.4100, L501.9520, L501.09355, L801.1541, L506.1000, L300.8000, L500.4050, L100.0100, L4500.0100 #### [facility] [address] [place], [address] D-Dimer Quantitative (DVT/PE )on 08-26-2023 D-DIMER QUANT < 0.27 Low 0.27-0.49 [facility] Comment on above: Result Comment: NORM AL D-Dimer level (<0.50) indicates no DVT or PE. Performed By: #### L 506.0400, L500.4100, L501.9520, L501.73646, L801.1541, L506.1000, L300.8000, L500.4050, L100.0100, L4500.0100 #### [facility] [address] [place], [address] Determination of erythrocyte mean corpuscular volume (MCV)Ordered By: Santana Henrandez on 08-26-2023 MCV (RBC) [Entitic vol] 87.4 fL 81-99 [facility] Dilute Ham's viper venom timeOrdered By: Santana Hernandez on 08-26-2023 dRVVT Coag (PPP) [Time] 44.2 s 0.0-47.0 [facility] Erythrocyte distribution wid th ratioOrdered By: Santana Hernandez on 08-26-2023 Erythrocyte distribution width (RBC) [Ratio] 13.7 % 11.6-14.6 [facility] Erythrocyte distribution wid th standard deviationOrdered By: [facility] on 08-26-2023 Erythrocyte distribution width (RBC) [Entitic vol] 44.2 fL 35.1-43.9 [facility] Free T3on 08-26-2023 Free T3 [Mass/Vol] 2.8 pg/mL Normal 2.18-3.98 [facility] Comment on above: Order Comment: c1230 23 Oxidized LDL Performed By: #### L 506.0400, L500.4100, L501.9520, L501.34692, L801.1541, L506.1000, L300.8000, L500.4050, L100.0100, L4500.0100 #### [facility] [address] [place] [address], [address] Hematocrit Auto (Bld) [Volum e fraction]Ordered By: Santana Hernandez on 08-26-2023 Hematocrit (Bld) [Volume fraction] 40.8 % 37-47 [facility] Immature granulocytes/100 WB C Auto (Bld)Ordered By: [facility] on 08-26-2023 Immature granulocytes/100 WBC (Bld) 0.300 % 0.0-0.9 [facility] Comment on above: IG% - Immature Granu locytes (promyelocytes, myelocytes and metamyelocytes) > 1% indicates that a LEFT SHIFT is Present. Laboratory - Chemistry and C hemistry - challengeOrdered By: Santanabibiana Hernandez on 08-26-2023 Albumin/Globulin [Mass ratio] 0.9 {ratio} 0.9-2.4 [facility] ALP [Catalytic activity/Vol] 77 U/L 45-117 [facility] ALT [Catalytic activity/Vol] 27 U/L 13-56 [facility] Cholesterol in HDL [Mass/Vol] 30 mg/dL >40 [facility] Comment on above: The drugs N-Acetylcy steine and Metamizole may falsely depress this assay. Reference Range HDL <40 mg/dL Low HDL Cholesterol HDL >or= 60 mg/dL High HDL Cholesterol Cholesterol in LDL [Mass/Vol] 119 mg/dL 0-130 [facility] CO2 [Moles/Vol] 25.0 mmol/L 21.0-32.0 [facility] Globulin (S) [Mass/Vol] 3.8 g/dL 2.2-4.2 [facility] Urea nitrogen/Creatinine [Mass ratio] 11.4 mg/mg 10-20 [facility] - Hematology and Cell countsOrdered By: Santana Hernandez on 08-26-2023 MCH (RBC) [Entitic mass] 28.7 pg 27.0-32.0 [facility] MCHC (RBC) [Mass/Vol] 32.8 g/dL 32-36 [facility] Nucleated RBC/100 WBC (Bld) [Ratio] 0 % 0-5 [facility] Platelet mean volume (Bld) [Entitic vol] 8.9 fL 6.2-12.0 [facility] Platelets (Bld) [#/Vol] 363 10*3/uL 150-450 [facility] Lipid Profileon 08-26-2023 Cholesterol [Mass/Vol] 162 mg/dL Normal [address] [facility] Comment on above: Order Comment: [id number] 23 Oxidized LDL Result Comment: <200 mg/dL Desirable 200-240 mg/dL Borderline >240 mg/dL High Risk Performed By: #### L 506.0400, L500.4100, L501.9520, L501.93799, L801.1541, L506.1000, L300.8000, L500.4050, L100.0100, L4500.0100 #### [facility] [address] [facility] [place], [place], [id number] Cholesterol in HDL [Mass/Vol] 30 mg/dL Low [facility] Comment on above: Order Comment: [id number] 23 Oxidized LDL Result Comment: The drugs N-Acetylcysteine and Metamizole may falsely depress this assay. Reference Range HDL <40 mg/dL Low HDL Cholesterol HDL >or= 60 mg/dL High HDL Cholesterol Performed By: #### L 506.0400, L500.4100, L501.9520, L501.92478, L801.1541, L506.1000, L300.8000, L500.4050, L100.0100, L4500.0100 #### [facility] [address] [place], [address] Cholesterol in LDL [Mass/Vol] 119 mg/dL Normal 0-130 [facility] Comment on above: Order Comment: c1230 23 Oxidized LDL Performed By: #### L 506.0400, L500.4100, L501.9520, L501.30681, L801.1541, L506.1000, L300.8000, L500.4050, L100.0100, L4500.0100 #### [facility] [address] [facility] [address] [place], [address] Cholesterol in VLDL [Mass/Vol] 13 mg/dL Normal 5-40 [facility] Comment on above: Order Comment: c1230 23 Oxidized LDL Performed By: #### L 506.0400, L500.4100, L501.9520, L501.70871, L801.1541, L506.1000, L300.8000, L500.4050, L100.0100, L4500.0100 #### [facility] [address] [place], [address] Triglyceride [Mass/Vol] 65 mg/dL Normal [facility] Comment on above: Order Comment: [id number] 23 Oxidized LDL Result Comment: The drugs N-Acetylcysteine and Metamizole may falsely depress this assay. Serum Triglycerides Reference Interval Normal <150 mg/dL Borderline high 150 - 199 mg/dL High 200 - 499 mg/dL Very High > or = 500 mg/dL Performed By: #### L 506.0400, L500.4100, L501.9520, L501.14341, L801.1541, L506.1000, L300.8000, L500.4050, L100.0100, L4500.0100 #### [facility] [address] [facility] [place], [address] No Panel InformationOrdered By: Santana Hernandez on 08-26-2023 D-Dimer Quantitative (PE/DVT) < 0.27 FEU/ug/m 0.27-0.49 [facility] Comment on above: NORMAL D-Dimer level (<0.50) indicates no DVT or PE. Estimated GFR (MDRD) Amer 99 mL/min >60 [facility] Comment on above: GFR Calc Estimated GFR (MDRD) Non-Af Amer 82 mL/min >60 [facility] Comment on above: Non- GFR Calc Free Triiodothyronine (T3) pg/dL 2.8 pg/mL 2.18-3.98 [facility] Miscellaneous Test See comment [facility] Comment on above: TEST RESULTS LIMITSO xidized LDL >2500 High ng/mL 10-170 Results verified by repeat testing TESTING PERFORMED AT [facility]. ORIGINAL REPORT ON FILE IN LAB CONTAINS ADDITIONAL TEST SITE INFORMATION. Vitamin D 25-Hydroxy 31.1 ng/mL [facility] Comment on above: Vitamin D 25(OH) Sta tus Range Deficiency <20 ng/mL (50nmol/L) Insufficiency 20 - 30 ng/mL (50 - 75 nmol/L) Sufficiency 30 - 100 ng/mL (75 - 250 nmol/L) Toxicity >100 ng/mL (>250 nmol/L) VLDL Cholesterol 13 mg/dL 5-40 [facility] RBC Auto (Bld) [#/Vol]Ordere d By: Santana Hernandez on 08-26-2023 RBC (Bld) [#/Vol] 4.67 10*6/uL 4.2-5.4 [facility] Serum or plasma calcium rylan urement (mass/volume)Ordered By: Santana Hernandez on 08-26-2023 Calcium [Mass/Vol] 8.6 mg/dL 8.5-10.1 [facility] Serum or plasma creatinine m easurement (mass/volume)Ordered By: Santana Hernandez on 08-26-2023 Creatinine [Mass/Vol] 0.88 mg/dL 0.55-1.02 [facility] Comment on above: The validity of the calculated GFR & GFRAA in patients over 70 years has not been determined. Clinical correlation is essential. Serum or plasma thyroid stim ulating hormone (TSH) measurement (units/volume)Ordered By: Santana Hernandez on 08-26-2023 TSH Qn 2.01 uIU/mL 0.358-3.74 [facility] Serum or plasma urea nitroge n measurement (mass/volume)Ordered By: Santana Hernandez on 08-26-2023 Urea nitrogen [Mass/Vol] 10 mg/dL 7-18 [facility] T4 Free Directon 08-26-2023 T4 FREE DIRECT 1.13 ng/dL Normal 0.76-1.46 [facility] Comment on above: Order Comment: c1230 23 Oxidized LDL Performed By: #### L 506.0400, L500.4100, L501.9520, L501.77788, L801.1541, L506.1000, L300.8000, L500.4050, L100.0100, L4500.0100 ####[facility] [address] [place], [address] Thin prep Papanicolaou smear with manual screeningOrdered By: Santana Hernandez on 08-26-2023 Thin prep Papanicolaou smear with manual screening 3.5 g/dL 3.2-5.0 [facility] Thin prep Papanicolaou smear with manual screening 16 U/L 15-37 [facility] Thin prep Papanicolaou smear with manual screening 5 5-15 [facility] Thin prep Papanicolaou smear with manual screening 1.13 ng/dL 0.76-1.46 [facility] Thin prep Papanicolaou smear with manual screening 45.2 sec 0.0-47.6 [facility] Thin prep Papanicolaou smear with manual screening 1.23 Ratio 0.00-1.34 [facility] Thin prep Papanicolaou smear with manual screening 38.1 sec 0.0-43.5 [facility] Thin prep Papanicolaou smear with manual screening Comment: . [facility] Comment on above: No lupus anticoagula nt was detected.Performed at: [address] [id number] Director: Martina Servin MD, Phone: [phone] Thrombin time in platelet po or plasmaOrdered By: Santana Hernandez on 08-26-2023 Thrombin time Coag (PPP) [Time] 15.9 sec 0.0-23.0 [facility] Thyroid Stim Hormone (TSH)on 08-26-2023 TSH 2.01 uIU/mL Normal 0.358-3.74 [facility] Comment on above: Order Comment: [id number] 23 Oxidized LDL Performed By: #### L 506.0400, L500.4100, L501.9520, L501.93881, L801.1541, L506.1000, L300.8000, L500.4050, L100.0100, L4500.0100 ####[facility] [address] [place], [address] Vitamin D,25 Hydroxyon 08-25 Vitamin D 25-OH 31.1 ng/mL Normal [facility] Comment on above: Result Comment: [place] min D 25(OH) Status Range Deficiency <20 ng/mL (50nmol/L) Insufficiency 20 - 30 ng/mL (50 - 75 nmol/L) Sufficiency 30 - 100 ng/mL (75 - 250 nmol/L) Toxicity >100 ng/mL (>250 nmol/L) Performed By: #### L 506.0400, L500.4100, L501.9520, L501.42427, L801.1541, L506.1000, L300.8000, L500.4050, L100.0100, L4500.0100 #### [facility] [address] [place], [address] Absolute lymphocyte countOrd ered By: Santana Hernandez on 02-21-2023 Lymphocytes Auto (Unsp spec) [#/Vol] 2.15 10*3/uL 0.83-4.51 [facility] Basophil percentageOrdered B y: Santana Hernandez on 02-21-2023 Basophils/100 WBC (Bld) 0.6 % 0-1 [facility] Bilirubin [Mass/Vol] 0.40 mg/dL 0.20-1.00 [facility] Comment on above: For patients on eltr ombopag therapy, use of Dimension [place] TBIL is not recommended. Chloride [Moles/Vol] 106 mmol/L 98-107 [facility] Cholesterol [Mass/Vol] 159 mg/dL <[address] [facility] Comment on above: <200 mg/dL Desirable 200-240 mg/dL Borderline >240 mg/dL High Risk Eosinophils/100 WBC (Bld) 1.8 % 0-5 [facility] Glucose [Mass/Vol] 90 mg/dL 74-106 [facility] Neutrophils (Bld) [#/Vol] 4.9 10*3/uL 2.0-7.7 [facility] Neutrophils/100 WBC (Bld) 61.6 % 47-70 [facility] Potassium [Moles/Vol] 3.7 mmol/L 3.5-5.1 [facility] Protein [Mass/Vol] 7.3 g/dL 6.4-8.2 [facility] Sodium [Moles/Vol] 136 mmol/L 136-145 [facility] Triglyceride [Mass/Vol] 78 mg/dL <199 [facility] Comment on above: The drugs N-Acetylcy steine and Metamizole may falsely depress this assay.Serum Triglycerides Reference Interval Normal <150 mg/dL Borderline high 150 - 199 mg/dL High 200 - 499 mg/dL Very High > or = 500 mg/dL WBC (Bld) [#/Vol] 7.9 10*3/uL 4.4-11.0 [facility] Blood erythrocytes count (nu mber/volume)Ordered By: Santana Hernandez on 02-21-2023 RBC (Bld) [#/Vol] 4.49 10*6/uL 4.2-5.4 [facility] Blood hemoglobin measurement (mass/volume)Ordered By: Santana Hernandez on 02-21-2023 Hemoglobin (Bld) [Mass/Vol] 13.3 g/dL 12.0-15.0 [facility] Blood lymphocytes/100 leukoc ytesOrdered By: Santana Hernandez on 02-21-2023 Lymphocytes/100 WBC (Bld) 27.2 % 19-41 [facility] Blood monocytes/100 leukocyt esOrdered By: Santana Hernandez on 02-21-2023 Monocytes/100 WBC (Bld) 8.7 % 0-10 [facility] Blood platelet mean volumeOr dered By: Santana Hernandez on 02-21-2023 Platelet mean volume (Bld) [Entitic vol] 9.1 fL 6.2-12.0 [facility] Determination of erythrocyte mean corpuscular volume (MCV)Ordered By: Santana Hernandez on 02-21-2023 MCV (RBC) [Entitic vol] 90.0 fL 81-99 [facility] Hematocrit Auto (Bld) [Volum e fraction]Ordered By: Santana Hernandez on 02-21-2023 Hematocrit (Bld) [Volume fraction] 40.4 % 37-47 [facility] - Chemistry and C hemistry - challengeOrdered By: Santana Hernandez on 02-21-2023 ALP [Catalytic activity/Vol] 76 U/L 45-117 [facility] ALT [Catalytic activity/Vol] 27 U/L 13-56 [facility] CO2 [Moles/Vol] 25.0 mmol/L 21.0-32.0 [facility] Free T4 [Mass/Vol] 1.24 ng/dL 0.76-1.46 [facility] Globulin (S) [Mass/Vol] 4.0 g/dL 2.2-4.2 [facility] Urea nitrogen/Creatinine [Mass ratio] 16.1 mg/mg 10-20 [facility] - Hematology and Cell countsOrdered By: Santana Hernandez on 02-21-2023 Erythrocyte distribution width (RBC) [Entitic vol] 43.2 fL 35.1-43.9 [facility] Erythrocyte distribution width (RBC) [Ratio] 12.9 % 11.6-14.6 [facility] Immature granulocytes/100 WBC (Bld) 0.100 % 0.0-0.9 [facility] Comment on above: IG% - Immature Granu locytes (promyelocytes, myelocytes and metamyelocytes) > 1% indicates that a LEFT SHIFT is Present. MCH (RBC) [Entitic mass] 29.6 pg 27.0-32.0 [facility] Nucleated RBC/100 WBC (Bld) [Ratio] 0 % 0-5 [facility] MCHC Auto (RBC) [Mass/Vol]Or dered By: Santana Hernandez on 02-21-2023 MCHC (RBC) [Mass/Vol] 32.9 g/dL 32-36 [facility] No Panel InformationOrdered By: Santana Hernandez on 02-21-2023 Estimated GFR (MDRD) Amer 100 mL/min >60 [facility] Comment on above: GFR Calc Estimated GFR (MDRD) Non-Af Amer 83 mL/min >60 [facility] Comment on above: Non- GFR Calc Free Triiodothyronine (T3) pg/dL 3.1 pg/mL 2.18-3.98 [facility] Insulin Level 14.2 mU/L 2.6-37.6 [facility] Thyroid Stimulating Hormone (TSH) 1.46 uIU/mL 0.358-3.74 [facility] Vitamin D 25-Hydroxy 33.5 ng/mL [facility] Comment on above: Vitamin D 25(OH) Sta tus Range Deficiency <20 ng/mL (50nmol/L) Insufficiency 20 - 30 ng/mL (50 - 75 nmol/L) Sufficiency 30 - 100 ng/mL (75 - 250 nmol/L) Toxicity >100 ng/mL (>250 nmol/L) Platelets bldOrdered By: Yesenia Hernandez on 02-21-2023 Platelets (Bld) [#/Vol] 318 10*3/uL 150-450 [facility] Serum or plasma albumin rylan urement (mass/volume)Ordered By: Santana Hernandez on 02-21-2023 Albumin [Mass/Vol] 3.3 g/dL 3.2-5.0 [facility] Serum or plasma albumin/glob ulin mass ratioOrdered By: Santana Hernandez on 02-21-2023 Albumin/Globulin [Mass ratio] 0.8 {ratio} 0.9-2.4 [facility] Serum or plasma calcium rylan urement (mass/volume)Ordered By: Santana Hernandez on 02-21-2023 Calcium [Mass/Vol] 8.5 mg/dL 8.5-10.1 [facility] Serum or plasma cholesterol in HDL measurement (mass/volume)Ordered By: Santana Hernandez on 02-21-2023 Cholesterol in HDL [Mass/Vol] 28 mg/dL >40 [facility] Comment on above: The drugs N-Acetylcy steine and Metamizole may falsely depress this assay. Reference Range HDL <40 mg/dL Low HDL Cholesterol HDL >or= 60 mg/dL High HDL Cholesterol Serum or plasma cholesterol in VLDL measurement (mass/volume)Ordered By: Santana Hernandez on 02-21-2023 Cholesterol in VLDL [Mass/Vol] 16 mg/dL 5-40 [facility] Serum or plasma creatinine m easurement (mass/volume)Ordered By: Santana Hernandez on 02-21-2023 Creatinine [Mass/Vol] 0.87 mg/dL 0.55-1.02 [facility] Comment on above: The validity of the calculated GFR & GFRAA in patients over 70 years has not been determined. Clinical correlation is essential. Serum or plasma low density lipoprotein (LDL) cholesterol measurement (mass/volume)Ordered By: Santana Hernandez on 02-21-2023 Cholesterol in LDL [Mass/Vol] 115 mg/dL 0-130 [facility] Serum or plasma urea nitroge n measurement (mass/volume)Ordered By: Santana Hernandez on 02-21-2023 Urea nitrogen [Mass/Vol] 14 mg/dL 7-18 [facility] Thin prep Papanicolaou smear with manual screeningOrdered By: Santana Hernandez 02-21-2023 Thin prep Papanicolaou smear with manual screening 11 U/L 15-37 [facility] Thin prep Papanicolaou smear with manual screening 5 5-15 [facility] Whole blood hemoglobin A1c/t otal hemoglobin ratio (mass fraction)Ordered By: Santana Hernandez on 02-21-2023 HbA1c (Bld) [Mass fraction] 5.0 % 3.8-5.6 [facility] Comment on above: Normal < 5.7 % Predi abetic 5.7 - 6.4 % Diabetic >or= 6.5 % Please note range changes. STREP A MOLECULAR (POC)on Procedural Control Valid [facility] Strep A (POCT) Positive Abnormal Negative [facility] Chlamydia trachomatis rRNA d etection by probe and target amplification methodOrdered By: Meryl Perez on 08-26-2022 C. trachomatis rRNA SINAN+probe Ql (Unsp spec) Negative Negative [facility] HIV 1 and HIV-2 antibody ass ay with HIV-1 p24 antigen detectionOrdered By: Meryl Perez on 08-26-2022 HIV 1+2 Ab+HIV1 p24 Ag IA Ql Non-Reactive Nonreactive [facility] - Microbiology an d Antimicrobial susceptibilityOrdered By: Meryl Perez on 08-26-2022 N. gonorrhoeae DNA SINAN+probe Ql (Unsp spec) Negative Negative [facility] Comment on above: Performed at: =[address] [id number] Director: Lucia Mcmullen MD, Phone: [phone] No Panel InformationOrdered By: Meryl Perez on 08-26-2022 Hepatitis C Antibody Non-Reactive Nonreactive [facility] Comment on above: Non Reactive: < 0.8 Equivocal: >/= 0.8 to < 1.0 Reactive: >/= 1.0The CDC recommends that a reactive/equivocal HCV antibody result be followed up by the HCV Nucleic Acid Amplificationtest (880039) Herpes Simplex Virus I IgG Antibody 34.80 index 0.00-0.90 [facility] Comment on above: Negative <0.91 Equiv ocal 0.91 - 1.09 Positive >1.09 Note: Negative indicates no antibodies detected to HSV-1. Equivocal may suggest early infection. If clinically appropriate, retest at later date. Positive indicates antibodies detected to HSV-1. Serum Treponema species anti body detectionOrdered By: Meryl Perez on 08-26-2022 Treponema sp Ab Ql (S) Non-Reactive [facility] Serum herpes simplex virus 2 antibody assay by immunoassay (units/volume)Ordered By: Meryl Perez on 08-26-2022 HSV 2 Ab IA Qn (S) 12.40 index 0.00-0.90 [facility] Comment on above: Negative <0.91 Equiv ocal 0.91 - 1.09 Positive >1.09 Note: Negative indicates no HSV-2 antibodies detected. Positive indicates HSV-2 antibodies detected. Equivocal and low positive HSV-2 screens (Index 0.91-5.00) may be false positive and are reflexed to supplemental testing in accordance with CDC guidelines.Performed at: [address] [id number] Director: Jeffry Velasqeuz PhD, Phone: [phone] Laboratory - Chemistry and C hemistry - challengeon 02-22-2022 HCG ( test) Ql (U) Negative [facility] Work Phone: Cervical or vagninal specime n microscopic examination by cytology stain (reported ason 07-30-2021 Cytology report Cyto stain Doc (Cvx/Vag) Comment [facility] Work Phone: Comment on above: The Pap smear is a s creening test designed to aid in thedetection of premalignant and malignant conditions of theuterine cervix. It is not a diagnostic procedure andshould not be used as the sole means of detecting cervicalcancer. Both false-positive and false-negative reports dooccur. Laboratory - Cytologyon Environmental Project Manager Cyto stain Nom (Cvx/Vag) [ID] Comment [facility] Work Phone: Comment on above: Amarilis Fuentes chnologist (ASCP) Laboratory - Miscellaneous t estson 07-30-2021 Service comment (Unsp spec) [Interp] Comment [facility] Work Phone: Comment on above: This liquid based Th inPrep(R) pap test was screened withthe use of an image guided system. Service comment (Unsp spec) [Interp] . [facility] Work Phone: No Panel Informationon 07-30 Human Papillomavirus Screen Comment [facility] Work Phone: Comment on above: The HPV DNA reflex c wyatt were not met with this specimenresult therefore, no HPV testing was performed.Performed at: [address], [place] [id number] Director: Lucia Mcmullen MD, Phone: [phone] Pathology report final diagnosis Narrative Comment [facility] Work Phone: Comment on above: NEGATIVE FOR INTRAEP ITHELIAL LESION OR MALIGNANCY. Absolute lymphocyte counton 05-30-2021 Lymphocytes Auto (Unsp spec) [#/Vol] 2.20 10*3/uL 0.83-4.51 [facility] Work Phone: Basophil percentageon 2021 Basophils/100 WBC (Bld) 0.4 % 0-1 [facility] Work Phone: Bilirubin [Mass/Vol] 0.30 mg/dL 0.20-1.00 [facility] Work Phone: Comment on above: For patients on eltr ombopag therapy, use of Dimension [place] TBIL is not recommended. Chloride [Moles/Vol] 102 mmol/L 98-107 [facility] Work Phone: [phone] Cholesterol [Mass/Vol] 173 mg/dL <[address] [facility] Work Phone: Comment on above: <200 mg/dL Desirable 200-240 mg/dL Borderline >240 mg/dL High Risk Eosinophils/100 WBC (Bld) 1.2 % 0-5 [facility] Work Phone: Glucose [Mass/Vol] 93 mg/dL 74-106 [facility] Work Phone: Neutrophils (Bld) [#/Vol] 6.0 10*3/uL 2.0-7.7 [facility] Work Phone: Neutrophils/100 WBC (Bld) 65.9 % 47-70 [facility] Work Phone: Potassium [Moles/Vol] 4.4 mmol/L 3.5-5.1 [facility] Work Phone: Protein [Mass/Vol] 7.8 g/dL 6.4-8.2 [facility] Work Phone: Sodium [Moles/Vol] 136 mmol/L 136-145 [facility] Work Phone: Triglyceride [Mass/Vol] 111 mg/dL [facility] Work Phone: Comment on above: The drugs N-Acetylcy steine and Metamizole may falsely depress this assay.Serum Triglycerides Reference Interval Normal <150 mg/dL Borderline high 150 - 199 mg/dL High 200 - 499 mg/dL Very High > or = 500 mg/dL WBC (Bld) [#/Vol] 9.1 10*3/uL 4.4-11.0 [facility] Work Phone: Blood erythrocytes count (nu mber/volume)on 05-30-2021 RBC (Bld) [#/Vol] 4.66 10*6/uL 4.2-5.4 [facility] Work Phone: Blood hemoglobin measurement (mass/volume)on 05-30-2021 Hemoglobin (Bld) [Mass/Vol] 13.3 g/dL 12.0-15.0 [facility] Work Phone: Blood lymphocytes/100 leukoc yteson 05-30-2021 Lymphocytes/100 WBC (Bld) 24.2 % 19-41 [facility] Work Phone: [phone] Blood monocytes/100 leukocyt eson 05-30-2021 Monocytes/100 WBC (Bld) 8.0 % 0-10 [facility] Work Phone: Blood platelet mean volumeon 05-30-2021 Platelet mean volume (Bld) [Entitic vol] 9.1 fL 6.2-12.0 [facility] Work Phone: Determination of erythrocyte mean corpuscular volume (MCV)on 05-30-2021 MCV (RBC) [Entitic vol] 86.1 fL 81-99 [facility] Work Phone: Hematocrit Auto (Bld) [Volum e fraction]on 05-30-2021 Hematocrit (Bld) [Volume fraction] 40.1 % 37-47 [facility] Work Phone: Laboratory - Chemistry and C hemistry - challengeon 05-30-2021 ALP [Catalytic activity/Vol] 88 U/L 45-117 [facility] Work Phone: ALT [Catalytic activity/Vol] 31 U/L 13-56 [facility] Work Phone: CO2 [Moles/Vol] 29.0 mmol/L 21.0-32.0 [facility] Work Phone: Free T4 [Mass/Vol] 1.25 ng/dL 0.76-1.46 [facility] Work Phone: Globulin (S) [Mass/Vol] 4.2 g/dL 2.2-4.2 [facility] Work Phone: Urea nitrogen/Creatinine [Mass ratio] 15.9 mg/mg 10-20 [facility] Work Phone: Laboratory - Hematology and Cell countson 05-30-2021 Erythrocyte distribution width (RBC) [Entitic vol] 42.9 fL 35.1-43.9 [facility] Work Phone: Erythrocyte distribution width (RBC) [Ratio] 13.6 % 11.6-14.6 [facility] Work Phone: Immature granulocytes/100 WBC (Bld) 0.300 % 0.0-0.9 [facility] Work Phone: Comment on above: IG% - Immature Granu locytes (promyelocytes, myelocytes and metamyelocytes) > 1% indicates that a LEFT SHIFT is Present. MCH (RBC) [Entitic mass] 28.5 pg 27.0-32.0 [facility] Work Phone: Nucleated RBC/100 WBC (Bld) [Ratio] 0 % 0-5 [facility] Work Phone: MCHC Auto (RBC) [Mass/Vol]on 05-30-2021 MCHC (RBC) [Mass/Vol] 33.2 g/dL 32-36 [facility] Work Phone: No Panel Informationon 05-30 Estimated GFR (MDRD) Amer 101 mL/min >60 [facility] Work Phone: Comment on above: GFR Calc Estimated GFR (MDRD) Non-Af Amer 83 mL/min >60 [facility] Work Phone: Comment on above: Non- GFR Calc Free Triiodothyronine (T3) pg/dL 2.8 pg/mL 2.18-3.98 [facility] Work Phone: Thyroid Stimulating Hormone (TSH) 1.48 uIU/mL 0.358-3.74 [facility] Work Phone: Vitamin D 25-Hydroxy 32.9 ng/mL [facility] Work Phone: Comment on above: Vitamin D 25(OH) Sta tus Range Deficiency <20 ng/mL (50nmol/L) Insufficiency 20 - 30 ng/mL (50 - 75 nmol/L) Sufficiency 30 - 100 ng/mL (75 - 250 nmol/L) Toxicity >100 ng/mL (>250 nmol/L) Platelets bldon 05-30-2021 Platelets (Bld) [#/Vol] 356 10*3/uL 150-450 [facility] Work Phone: Serum or plasma albumin rylan urement (mass/volume)on 05-30-2021 Albumin [Mass/Vol] 3.6 g/dL 3.2-5.0 [facility] Work Phone: Serum or plasma albumin/glob ulin mass ratioon 05-30-2021 Albumin/Globulin [Mass ratio] 0.9 {ratio} 0.9-2.4 [facility] Work Phone: Serum or plasma calcium rylan urement (mass/volume)on 05-30-2021 Calcium [Mass/Vol] 9.0 mg/dL 8.5-10.1 [facility] Work Phone: Serum or plasma cholesterol in HDL measurement (mass/volume)on 05-30-2021 Cholesterol in HDL [Mass/Vol] 22 mg/dL [facility] Work Phone: Comment on above: The drugs N-Acetylcy steine and Metamizole may falsely depress this assay. Reference Range HDL <40 mg/dL Low HDL Cholesterol HDL >or= 60 mg/dL High HDL Cholesterol Serum or plasma cholesterol in VLDL measurement (mass/volume)on 05-30-2021 Cholesterol in VLDL [Mass/Vol] 22 mg/dL 5-40 [facility] Work Phone: Serum or plasma creatinine m easurement (mass/volume)on 05-30-2021 Creatinine [Mass/Vol] 0.88 mg/dL 0.55-1.02 [facility] Work Phone: Comment on above: The validity of the calculated GFR & GFRAA in patients over 70 years has not been determined. Clinical correlation is essential. Serum or plasma low density lipoprotein (LDL) cholesterol measurement (mass/volume)on 05-30-2021 Cholesterol in LDL [Mass/Vol] 129 mg/dL 0-130 [facility] Work Phone: Serum or plasma urea nitroge n measurement (mass/volume)on 05-30-2021 Urea nitrogen [Mass/Vol] 14 mg/dL 7-18 [facility] Work Phone: Thin prep Papanicolaou smear with manual screeningon 05-30-2021 Thin prep Papanicolaou smear with manual screening 15 U/L 15-37 [facility] Work Phone: Thin prep Papanicolaou smear with manual screening 5 5-15 [facility] Work Phone: Final Surgical Pathology Rep [facility] 02-05-2017 Final Surgical Pathology Report . Pathology ReportsAccession: Collected Date/Time: Received Date/Time: Pathologist:[id number] 02/03/2017 13:57 EDT 02/04/2017 13:57 EDT MD CARIN VÁSQUEZ Final Surgical Pathology ReportDIAGNOSIS:TONSILS: - LYMPHOID HYPERPLASIA WITH ACTINOMYCOTIC GRANULE FORMATION.CLINICAL INFORMATION:CHRONIC TONSILLITIS / ENLARGEMENT OF TONSILSSPECIMEN:A T/A Tonsils (Right pinned)GROSS DESCRIPTION:_Received in formalin labeled tonsils are 2 tonsils. 1 displays a safety pin indicating it is the right-sided specimen which is subsequently inked. The right tonsil is 3.3 x 2.0 x 1.6 cm. The mucosal surface is merritt-pink and ranges from smooth to lobulated. Sectioning shows the usual crypt architecture. No lesions are identified.The left tonsil is 3.4 x 2.0 x 1.5 cm. The mucosal surface is merritt and ranges from smooth to lobulated. Sectioning shows the usual crypt architecture with no discrete lesions grossly identified. A sales representative rural power section of each tonsil is submitted in one cassette.Dictated by TAMMI ARANA ([facility])MICROSCOPIC DESCRIPTION:Slides reviewed.Electronically Signed byPathology Report verified by [facility] Center[facility]ronically signed by CARIN VÁSQUEZ MDSign out Date: 02/05/2017 15:51Performing Lab: [facility], [facility] [address] [place] [address] ([place]) Comment on above: Performed By: #### S PFR ####[place] [id number] Vital Signs Date Time Vital Sign Value Performing Clinician Facility 11-06-2024 09:10-0400 Body temperature 97.2 [degF] Ken Ohara Jr., UTILITY SALES AND SERVICE MANAGER.AREA SALES MANAGER Work Phone: [facility] 11-06-2024 09:10-0400 Diastolic blood pressure 80 mm[Hg] Ken Ohara Jr., UTILITY SALES AND SERVICE MANAGER.AREA SALES MANAGER Work Phone: [facility] 11-06-2024 09:10-0400 Heart rate 80 /min Ken Ohara Jr., UTILITY SALES AND SERVICE MANAGER.AREA SALES MANAGER Work Phone: [facility] 11-06-2024 09:10-0400 Respiratory rate 18 /min Ken Ohara Jr., UTILITY SALES AND SERVICE MANAGER.AREA SALES MANAGER Work Phone: [facility] 11-06-2024 09:10-0400 SaO2% (BldA) [Mass fraction] 98 % Ken Ohara Jr., ERNIE.AREA SALES MANAGER Work Phone: [facility] 11-06-2024 09:10-0400 Systolic blood pressure 114 mm[Hg] Ken Ohara Jr., UTILITY SALES AND SERVICE MANAGER.AREA SALES MANAGER Work Phone: [facility] 08-09-2024 20:00-0400 Body temperature 98.4 [degF] Dr. Santana Hernandez MD Work Phone: [facility] 08-09-2024 20:00-0400 Diastolic blood pressure 86 mm[Hg] Dr. Santana Hernandez MD Work Phone: [facility] 08-09-2024 20:00-0400 Heart rate 70 /min Dr. Santana Hernandez MD Work Phone: [facility] 08-09-2024 20:00-0400 Respiratory rate 16 /min Dr. Santana Hernandez MD Work Phone: [facility] 08-09-2024 20:00-0400 SaO2% (BldA) [Mass fraction] 99 % Dr. Santana Hernandez MD Work Phone: [facility] 08-09-2024 20:00-0400 Systolic blood pressure 124 mm[Hg] Dr. Santana Hernandez MD Work Phone: [facility] 08-09-2024 15:05-0400 Body height 162.[address] Santana Hernandez MD Work Phone: [facility] 08-09-2024 15:05-0400 Body mass index (BMI) [Ratio] 38.9 kg/m2 Dr. Santana Hernandez MD Work Phone: [facility] 08-09-2024 15:05-0400 Body weight 103.[address] Santana Hernandez MD Work Phone: [facility] 12-17-2024 15:26-0500 Body mass index (BMI) [Ratio] 37.19 kg/m2 Amaury Barger APRN.AREA SALES MANAGER Work Phone: [facility] 04-13-2024 15:26-0500 Body temperature 98.49 [degF] Amaury Barger APRN.AREA SALES MANAGER Work Phone: [facility] 04-13-2024 15:26-0500 Body weight 98.8 kg Amaury Barger APRN.AREA SALES MANAGER Work Phone: [facility] 04-13-2024 15:26-0500 Diastolic blood pressure 85 mm[Hg] Amaury Barger APRN.AREA SALES MANAGER Work Phone: [facility] 04-13-2024 15:26-0500 Heart rate 90 /min Amaury Barger APRN.AREA SALES MANAGER Work Phone: [facility] 04-13-2024 15:26-0500 Respiratory rate 18 /min Amaury Barger APRN.AREA SALES MANAGER Work Phone: [facility] 04-13-2024 15:26-0500 SaO2% (BldA) [Mass fraction] 99 % Amaury Barger APRN.AREA SALES MANAGER Work Phone: [facility] 04-13-2024 15:26-0500 Systolic blood pressure 137 mm[Hg] Amaury Barger APRN.AREA SALES MANAGER Work Phone: [facility] 08-28-2023 16:01-0400 Body height 160.[address] Santana Hernandez Work Phone: [facility] 08-28-2023 16:01-0400 Body mass index (BMI) [Ratio] 38.7 kg/m2 Dr. Santana Hernandez Work Phone: [facility] 08-28-2023 16:01-0400 Body temperature 96 [degF] Dr. Santana Hernandez Work Phone: [facility] 08-28-2023 16:01-0400 Body weight 99.[address] Santana Hernandez Work Phone: [facility] 08-28-2023 16:01-0400 Diastolic blood pressure 77 mm[Hg] Dr. Santana Hernandez Work Phone: [facility] 08-28-2023 16:01-0400 Heart rate 76 /min Dr. Santana Hernandez Work Phone: [facility] 08-28-2023 16:01-0400 Respiratory rate 16 /min Dr. Santana Hernandez Work Phone: [facility] 08-28-2023 16:01-0400 SaO2% (BldA) [Mass fraction] 96 % Dr. Santana Hernandez Work Phone: [facility] 08-28-2023 16:01-0400 Systolic blood pressure 120 mm[Hg] Dr. Santana Hernandez Work Phone: [facility] 02-20-2023 14:06-0400 Body height 160.[address] Santana Hernandez Work Phone: [facility] 02-20-2023 14:06-0400 Body mass index (BMI) [Ratio] 38.1 kg/m2 Dr. Santana Hernandez Work Phone: [facility] 02-20-2023 14:06-0400 Body temperature 98 [degF] Dr. Santana Hernandez Work Phone: [facility] 02-20-2023 14:06-0400 Body weight 97.[address] Santana Hernandez Work Phone: [facility] 02-20-2023 14:06-0400 Diastolic blood pressure 84 mm[Hg] Dr. Santana Hernandez Work Phone: [facility] 02-20-2023 14:06-0400 Heart rate 92 /min Dr. Santana Hernandez Work Phone: [facility] 02-20-2023 14:06-0400 Respiratory rate 16 /min Dr. Santana Hernandez Work Phone: [facility] 02-20-2023 14:06-0400 SaO2% (BldA) [Mass fraction] 96 % Dr. Santana Hernandez Work Phone: [facility] 02-20-2023 14:06-0400 Systolic blood pressure 129 mm[Hg] Dr. Santana Hernandez Work Phone: [facility] 01-28-2023 08:57-0400 Body temperature 98.71 [degF] Barbara Nice UTILITY SALES AND SERVICE MANAGER.AREA SALES MANAGER Work Phone: [facility] 01-28-2023 08:57-0400 Body weight 97.16 kg Barbara Nice UTILITY SALES AND SERVICE MANAGER.AREA SALES MANAGER Work Phone: [facility] 01-28-2023 08:57-0400 Diastolic blood pressure 72 mm[Hg] Barbara Nice UTILITY SALES AND SERVICE MANAGER.AREA SALES MANAGER Work Phone: [facility] 01-28-2023 08:57-0400 Heart rate 81 /min Barbara Nice UTILITY SALES AND SERVICE MANAGER.AREA SALES MANAGER Work Phone: [facility] 01-28-2023 08:57-0400 Respiratory rate 18 /min Barbara Nice UTILITY SALES AND SERVICE MANAGER.AREA SALES MANAGER Work Phone: [facility] 01-28-2023 08:57-0400 SaO2% (BldA) [Mass fraction] 98 % Barbara Nice UTILITY SALES AND SERVICE MANAGER.AREA SALES MANAGER Work Phone: [facility] 01-28-2023 08:57-0400 Systolic blood pressure 110 mm[Hg] Barbara Nice UTILITY SALES AND SERVICE MANAGER.AREA SALES MANAGER Work Phone: [facility] 08-26-2022 08:59-0400 Body height 160.[address] Santana Hernandez Work Phone: [facility] 08-26-2022 08:51-0400 Body mass index (BMI) [Ratio] 37.6 kg/m2 Dr. Santana Hernandez Work Phone: [facility] 08-26-2022 08:51-0400 Body weight 96.[address] Santana Hernandez Work Phone: [facility] 08-26-2022 08:51-0400 Diastolic blood pressure 68 mm[Hg] Dr. Santana Hernandez Work Phone: [facility] 08-26-2022 08:51-0400 Systolic blood pressure 112 mm[Hg] Dr. Santana Hernandez Work Phone: [facility] 06-19-2022 15:05-0500 Body mass index (BMI) [Ratio] 37.3 kg/m2 Dr. Santana Hernandez Work Phone: [facility] 06-19-2022 15:05-0500 Body weight 95.[address] Santana Hernandez Work Phone: [facility] 06-19-2022 15:05-0500 Diastolic blood pressure 82 mm[Hg] Dr. Santana Hernandez Work Phone: [facility] 06-19-2022 15:05-0500 Systolic blood pressure 139 mm[Hg] Dr. Santana Hernandez Work Phone: [facility] 03-27-2022 08:31-0500 Body height 160.[address] Santana Hernandez Work Phone: [facility] Work Phone: 03-27-2022 08:31-0500 Body mass index (BMI) [Ratio] 36.5 kg/m2 Dr. Santana Hernandez Work Phone: [facility] Work Phone: 03-27-2022 08:31-0500 Body weight 93.[address] Santana Hernandez Work Phone: [facility] Work Phone: 03-27-2022 08:31-0500 Diastolic blood pressure 76 mm[Hg] Dr. Santana Hernandez Work Phone: [facility] Work Phone: 03-27-2022 08:31-0500 Systolic blood pressure 116 mm[Hg] Dr. Santana Hernandez Work Phone: [facility] Work Phone: 02-22-2022 09:02-0400 Body mass index (BMI) [Ratio] 36.8 kg/m2 Dr. Santana Hernandez Work Phone: [facility] Work Phone: 02-22-2022 09:02-0400 Body weight 94.[address] Santana Hernandez Work Phone: [facility] Work Phone: 02-22-2022 09:02-0400 Diastolic blood pressure 93 mm[Hg] Dr. Santana Hernandez Work Phone: [facility] Work Phone: 02-22-2022 09:02-0400 Systolic blood pressure 128 mm[Hg] Dr. Santana Hernandez Work Phone: [facility] Work Phone: 02-19-2022 15:30-0400 Body mass index (BMI) [Ratio] 37.4 kg/m2 Dr. Santana Hernandez Work Phone: [facility] Work Phone: 02-19-2022 15:30-0400 Body weight 95.[address] Santana Hernandez Work Phone: [facility] Work Phone: 02-19-2022 15:30-0400 Diastolic blood pressure 79 mm[Hg] Dr. Santana Hernandez Work Phone: [facility] Work Phone: 02-19-2022 15:30-0400 Systolic blood pressure 134 mm[Hg] Dr. Santana Hernandez Work Phone: [facility] Work Phone: 07-30-2021 08:12-0400 Body height 160.[address] Santana Hernandez Work Phone: [facility] Work Phone: 07-30-2021 08:12-0400 Body mass index (BMI) [Ratio] 40.9 kg/m2 Dr. Santana Hernanedz Work Phone: [facility] Work Phone: 07-30-2021 08:12-0400 Body weight 104.[address] Santana Hernandez Work Phone: [facility] Work Phone: 07-30-2021 08:12-0400 Diastolic blood pressure 70 mm[Hg] Dr. Santana Hernandez Work Phone: [facility] Work Phone: 07-30-2021 08:12-0400 Systolic blood pressure 110 mm[Hg] Dr. Santana Hernandez Work Phone: [facility] Work Phone: 07-19-2021 07:33-0400 Body mass index (BMI) [Ratio] 39.6 kg/m2 Dr. Santana Hernandez Work Phone: [facility] Work Phone: 07-19-2021 07:33-0400 Body temperature 98.1 [degF] Dr. Santana Hernandez Work Phone: [facility] Work Phone: 07-19-2021 07:33-0400 Body weight 101.[address] Santana Hernandez Work Phone: [facility] Work Phone: 07-19-2021 07:33-0400 Diastolic blood pressure 77 mm[Hg] Dr. Santana Hernandez Work Phone: [facility] Work Phone: 07-19-2021 07:33-0400 Heart rate 78 /min Dr. Santana Hernandez Work Phone: [facility] Work Phone: 07-19-2021 07:33-0400 Respiratory rate 18 /min Dr. Santana Hernandez Work Phone: [facility] Work Phone: 07-19-2021 07:33-0400 SaO2% (BldA) [Mass fraction] 97 % Dr. Santana Hernandez Work Phone: [facility] Work Phone: 07-19-2021 07:33-0400 Systolic blood pressure 118 mm[Hg] Dr. Santana Hernandez Work Phone: [facility] Work Phone: 05-30-2021 07:38-0500 Body mass index (BMI) [Ratio] 39.1 kg/m2 Dr. Santana Hernandez Work Phone: [facility] Work Phone: 05-30-2021 07:38-0500 Body temperature 97.9 [degF] Dr. Santana Hernandez Work Phone: [facility] Work Phone: 05-30-2021 07:38-0500 Body weight 106.[address] Santana Hernandez Work Phone: [facility] Work Phone: 05-30-2021 07:38-0500 Diastolic blood pressure 72 mm[Hg] Dr. Santana Hernandez Work Phone: [facility] Work Phone: 05-30-2021 07:38-0500 Heart rate 83 /min Dr. Santana Hernandez Work Phone: [facility] Work Phone: 05-30-2021 07:38-0500 Respiratory rate 14 /min Dr. Santana Hernandez Work Phone: [facility] Work Phone: 05-30-2021 07:38-0500 SaO2% (BldA) [Mass fraction] 97 % Dr. Santana Hernandez Work Phone: [facility] Work Phone: 05-30-2021 07:38-0500 Systolic blood pressure 118 mm[Hg] Dr. Santana Hernandez Work Phone: [facility] Work Phone: Encounters Encounter Date Encounter Type Care Provider Facility Start: 11-08-2024 End: 01-08-2025 Follow-up encounter Myriam Sloan UTILITY SALES AND SERVICE MANAGER.AREA SALES MANAGER Work Phone: [facility] Start: 11-06-2024 End: 11-06-2024 Subsequent hospital visit by physician Xr [facility] Work Phone: [facility] Comment on above: Acute left ankle natasha n [M25.572] Start: 11-06-2024 End: 11-06-2024 Patient encounter procedure Ken Ohara APRN.AREA SALES MANAGER Work Phone: [facility] Comment on above: Strain of ankle, lef t, initial encounter (Primary Dx); Traumatic ecchymosis of left foot, initial encounter; Acute left ankle pain; Edema of left foot Start: 11-06-2024 End: 11-06-2024 ambulatory SANTANA HERNANDEZ Facility:[id number] Start: 08-09-2024 End: 08-09-2024 Emergency department patient visit Dr. Santana Hernandez MD Work Phone: -Emergency Department Work Phone: Start: 05-20-2024 End: 05-20-[address] Santana Hernandez MD -[facility] Work Phone: Start: 05-20-2024 End: 05-20-2024 ambulatory Santana Hernandez Facility:[facility] Start: 05-12-2024 End: 05-13-2024 Emergency department patient visit TYESHA GOMEZ Facility:[id number] Start: 04-17-2024 End: 04-17-[address] Santana Hernandez MD -Laboratory Work Phone: Start: 04-17-2024 End: 04-17-2024 ambulatory Santanabibiana Hernandez Facility:[facility] Start: 04-13-2024 End: 04-13-2024 ambulatory Facility:[facility] Start: 04-13-2024 End: 04-13-2024 Patient encounter procedure Amaury Barger APRN.AREA SALES MANAGER Work Phone: [facility] Comment on above: Rhinosinusitis (Prim naomi Dx) Start: 03-30-2024 End: 03-30-2024 ambulatory Santana Hernandez Facility:[facility] Start: 03-08-2024 End: 03-08-2024 ambulatory IMB NURSE [facility] Start: 03-03-2024 End: 03-03-[address] [facility] Facility:[facility] Start: 02-05-2024 End: 02-05-2024 ambulatory Santanabibiana Hernandez Facility:[facility] Start: 01-31-2024 End: 01-31-20[facility] Start: 01-28-2024 End: 01-28-2024 Emergency department patient visit Santana Hernandez Facility:[facility] Start: 12-01-2023 ambulatory Santanabibiana Hernandez Facility :[facility] Start: 10-09-2023 End: 10-09-2023 ambulatory Santanabibiana Hernandez Facility:[facility] Start: 10-09-2023 End: 10-09-[address] [facility] Facility:[facility] Start: 09-09-2023 Encounter for genera l adult medical examination without abnormal findings Santana Hernandez [facility] Start: 09-08-2023 ambulatory Santana Hernandez Facility :[facility] Start: 09-01-2023 ambulatory Santana Hernandez Facility :[facility] Start: 08-28-2023 End: 08-28-[address] Santana Hernandez Work Phone: [facility] Work Phone: Start: 08-28-2023 End: 08-28-2023 ambulatory Santana Hernandez Facility:[facility] Start: 08-26-2023 End: 08-26-[address] Santana Hernandez Work Phone: [facility] Work Phone: Start: 08-26-2023 End: 08-26-[address] Santana Hernandez Work Phone: [facility] Start: 08-26-2023 End: 08-26-2023 ambulatory Santana Hernandez Facility:[facility] Start: 02-21-2023 End: 02-21-[address] Santana Hernandez Work Phone: [facility] Work Phone: Start: 02-21-2023 End: 02-21-[address] Santana Hernandez Work Phone: [facility] Start: 02-20-[address] Sangita Hernandez Work Phone: [facility] Start: 02-20-2023 End: 02-20-2023 Encounter for general adult medical examination without abnormal findings Dr. Santana Hernandez Work Phone: [facility] Start: 02-20-2023 End: 02-20-[address] Santana Hernandez Work Phone: [facility] Work Phone: Start: 02-17-2023 Non-patient / Non-visit Dr. Isatu Hernandez Work Phone: [facility] Start: 02-17-2023 End: 02-17-[address] Santana Hernandez Work Phone: [facility] Work Phone: Start: 01-28-2023 End: 01-28-2023 Patient encounter procedure Barbara Nice APRN.AREA SALES MANAGER Work Phone: [facility] Comment on above: Strep pharyngitis (P rimary Dx) Start: 08-26-2022 End: 08-26-[address] Santana Hernandez Work Phone: [facility] Work Phone: Start: 08-26-2022 End: 08-26-[address] Santana Hernandez Work Phone: [facility] Start: 06-19-2022 End: 06-19-[address] Santana Hernandez Work Phone: [facility] Start: 03-27-2022 End: 03-27-[address] Santana Hernandez Work Phone: [facility] Start: 03-14-2022 End: 03-14-[address] Santana Hernandez Work Phone: [facility] Work Phone: Start: 03-14-2022 End: 03-14-[address] Santana Hernandez Work Phone: [facility], [facility] Start: 02-22-2022 End: 02-22-[address] Santana Hernandez Work Phone: [facility] Start: 02-19-2022 End: 02-19-[address] Santana Hernandez Work Phone: [facility] Start: 07-30-2021 End: 07-30-[address] Santana Hernandez Work Phone: [facility], Specimen Start: 07-30-2021 End: 07-30-[address] Santana Hernandez Work Phone: [facility] Start: 07-19-2021 End: 07-19-[address] Santana Hernandez Work Phone: [facility] Start: 07-03-2021 End: 07-03-[address] Santana Hernandez Work Phone: [facility], [facility] Start: 05-30-2021 End: 05-30-[address] Santana Hernandez Work Phone: [facility], [facility] Start: 05-30-2021 End: 05-30-[address] Santana Hernandez Work Phone: [facility] Start: 02-03-2017 End: 02-08-2017 Ambulatory ALEX SOW Facility:A Procedures Date Procedure Procedure Detail Performing Clinician Start: 08-09-2024 CT of head without contrast Dr. Santana Hernandez MD Work Phone: Start: 05-20-2024 MRI of brain without contrast Dr. Santana Hernandez MD Work Phone: Start: 01-28-2023 STREP A MOLECULAR (POC) Barbara Nice APRN.AREA SALES MANAGER Work Phone: Start: 03-14-[address] Santana Hernandez Work Phone: Start: 07-03-2021 US scan of thyroid Dr. Santana Hernandez Work Phone: Plan of Treatment Date Care Activity Detail Author Start: 06-01-2025 Urine microalbumin profile [facility] Start: 12-27-2024 Influenza vaccination Influenza Vacc ine (#1) [facility] Start: 08-09-2024 [facility] Start: 12-28-2023 Covid-19 Vaccine ( season) Covid-19 Vaccine ( season) [facility] Start: 12-28-2023 Influenza vaccination Influenza Vacc ine (#1) [facility] Start: 07-28-2023 Pap Testing Pap Testing [facility] Start: 07-28-2023 Screening for malign ant neoplasm of cervix Cervical Cancer Screening [facility] Start: 12-27-2022 Influenza vaccination Influenza Vacc ine (#1) [facility] Start: 04-28-2022 Depression Assessment Depression Ass essment [facility] Start: 2014 Anxiety Screening Anxiety Screening [facility] Start: 2014 Depression Screening Depression Scre ening [facility] Start: 2014 Hepatitis C Screening Hepatitis C [facility] Start: 2014 Hepatitis C screening Hepatitis C [facility] Start: 2010 Peds To Adult Transi tion Annual Assessment Peds To Adult Transition Annual Assessment [facility] Start: 2008 Peds To Adult Transi tion Initial Discussion Peds To Adult Transition Initial Discussion [facility] Start: 1996 Covid-19 Vaccine (#1) Covid-19 Vacci ne (#1) [facility] Patient Education ED Dizziness, Uncertain Cause ED Vertigo, Unspecified [facility] Work Phone: Patient referral [facility] Work Phone: Procedure [facility] Procedure [facility] End: 12-06-2025 XR Ankle - left AP and Lateral and oblique XR ANKLE GENERAL 3V AP/LAT/OBL LEFT Radiology Routine Acute left ankle pain 1 Occurrences starting 11/06/2024 until 12/06/2025 [facility] Work Phone: Comment on above: 1 Occurrences starti ng 11/06/2024 until 12/06/2025 XR Ankle - left AP a nd Lateral and oblique XR ANKLE GENERAL 3V AP/LAT/OBL LEFT Radiology Routine Acute left ankle pain 11/06/2024 12:58 PM EDT [facility] Immunizations Immunization Date Immunization Notes Care Provider Sara douglass 05-11-2018 influenza virus vaccine, unspecified formulation Barbara Nice APRN.AREA SALES MANAGER Work Phone: [facility] 06-01-2015 tetanus toxoid, redu thi diphtheria toxoid, and acellular pertussis vaccine, adsorbed Barbara Nice UTILITY SALES AND SERVICE MANAGER.AREA SALES MANAGER Work Phone: [facility] Work Phone: 02-16-2013 Meningococcal, MCV4, unspecified conjugate formulation(groups A, C, Y and W-135) Barbara Nice UTILITY SALES AND SERVICE MANAGER.AREA SALES MANAGER Work Phone: [facility] Work Phone: 02-16-2013 varicella virus vaccine Supriya ica Nice UTILITY SALES AND SERVICE MANAGER.[facility] Work Phone: [facility] Work Phone: 07-21-2009 human papilloma viru s vaccine, quadrivalent Barbara Nice UTILITY SALES AND SERVICE MANAGER.[facility] Work Phone: [facility] Work Phone: 02-20-2009 human papilloma viru s vaccine, quadrivalent Barbara Nice UTILITY SALES AND SERVICE MANAGER.[facility] Work Phone: [facility] Work Phone: 12-01-2008 human papilloma viru s vaccine, quadrivalent Barbara Nice UTILITY SALES AND SERVICE MANAGER.[facility] Work Phone: [facility] 12-01-2008 Meningococcal, MCV4, unspecified conjugate formulation(groups A, C, Y and W-135) Barbara Nice UTILITY SALES AND SERVICE MANAGER.[facility] Work Phone: [facility] 12-01-2008 tetanus toxoid, redu thi diphtheria toxoid, and acellular pertussis vaccine, adsorbed Barbara Nice UTILITY SALES AND SERVICE MANAGER.[facility] Work Phone: [facility] 01-12-2002 diphtheria, tetanus toxoids and acellular pertussis vaccine Barbara Nice UTILITY SALES AND SERVICE MANAGER.AREA SALES MANAGER Work Phone: [facility] Work Phone: 01-12-2002 measles, mumps and rubella virus vaccine Barbara Nice UTILITY SALES AND SERVICE MANAGER.[facility] Work Phone: [facility] Work Phone: 01-12-2002 poliovirus vaccine, inactivated Barbara Nice UTILITY SALES AND SERVICE MANAGER.[facility] Work Phone: [facility] Work Phone: 01-30-1999 varicella virus vaccine Supriya ica Nice UTILITY SALES AND SERVICE MANAGER.[facility] Work Phone: [facility] Work Phone: 06-06-1998 haemophilus influenz ae type b vaccine, HbOC conjugate Barbara Nice UTILITY SALES AND SERVICE MANAGER.[facility] Work Phone: [facility] Work Phone: 06-06-1998 hepatitis B vaccine, pediatric or pediatric/adolescent dosage Barbara Nice UTILITY SALES AND SERVICE MANAGER.[facility] Work Phone: [facility] Work Phone: 11-22-1997 diphtheria, tetanus toxoids and acellular pertussis vaccine Barbara Nice UTILITY SALES AND SERVICE MANAGER.[facility] Work Phone: [facility] Work Phone: 11-22-1997 poliovirus vaccine, inactivated Barbara Nice UTILITY SALES AND SERVICE MANAGER.[facility] Work Phone: [facility] Work Phone: 09-10-1997 measles, mumps and rubella virus vaccine Barbara Nice UTILITY SALES AND SERVICE MANAGER.[facility] Work Phone: [facility] Work Phone: 1996 haemophilus influenz ae type b vaccine, HbOC conjugate Barbara Nice UTILITY SALES AND SERVICE MANAGER.[facility] Work Phone: [facility] Work Phone: 1996 diphtheria, tetanus toxoids and acellular pertussis vaccine Barbara Nice UTILITY SALES AND SERVICE MANAGER.[facility] Work Phone: [facility] Work Phone: 1996 haemophilus influenz ae type b vaccine, HbOC conjugate Barbara Nice UTILITY SALES AND SERVICE MANAGER.[facility] Work Phone: [facility] Work Phone: 1996 poliovirus vaccine, inactivated Barbara Nice UTILITY SALES AND SERVICE MANAGER.[facility] Work Phone: [facility] Work Phone: 1996 diphtheria, tetanus toxoids and acellular pertussis vaccine Barbara Nice UTILITY SALES AND SERVICE MANAGER.AREA SALES MANAGER Work Phone: [facility] Work Phone: 1996 haemophilus influenz ae type b vaccine, HbOC conjugate Barbara Nice UTILITY SALES AND SERVICE MANAGER.AREA SALES MANAGER Work Phone: [facility] Work Phone: 1996 hepatitis B vaccine, pediatric or pediatric/adolescent dosage Barbara Nice UTILITY SALES AND SERVICE MANAGER.AREA SALES MANAGER Work Phone: [facility] Work Phone: 1996 poliovirus vaccine, inactivated Barbara Nice UTILITY SALES AND SERVICE MANAGER.AREA SALES MANAGER Work Phone: [facility] Work Phone: 1996 hepatitis B vaccine, pediatric or pediatric/adolescent dosage Barbara Nice UTILITY SALES AND SERVICE MANAGER.AREA SALES MANAGER Work Phone: [facility] Work Phone: Payers Date Payer Category Payer [facility] PPO [id number] 2024 Unknown [id number] 2023 Self-pay [id number] 2018 Unknown MMO MMO [employer] PPO [id number] 2018-Present [phone] [address] [place] [address] PPO [id number] 2018 Unknown [id number] 2016 Unknown [id number] 2010 Unknown [id number] Unknown [id number] Unknown [id number]. 462 Unknown [id number] [id number]. 462 Unknown [id number] 2.16.840.1.895093.3.579.2. 462 Unknown [id number] 2.16.840.1.279747.3.579.2. 462 Unknown [id number] 2.16.840.1.898663.3.579.2. 462 Unknown [id number] 2.16.840.1.404538.3.579.2. 462 Unknown [id number] 2.16.840.1.321503.3.579.2. 462 Unknown [id number] 2.16.840.1.626271.3.579.2. 462 Unknown [id number] 2.16.840.1.583604.3.579.2. 462 Unknown [id number] 2.16.840.1.319823.3.579.2. 462 Unknown [id number] 2.16.840.1.167218.3.579.2. 462 Unknown [id number] 2.16.840.1.164972.3.579.2. 462 Unknown [id number] 2.16.840.1.531491.3.579.2. 462 Unknown [id number] 2.16.840.1.125823.3.579.2. 462 Unknown [id number] 2.16.840.1.045025.3.579.2. 462 Unknown [id number] [id number]. 462 Social History Date Type Detail Facility Start: 07-30-2021 End: 03-06-2023 Tobacco smoking status CAIS Unknown if ever smoked [facility] Start: 08-24-2020 Non-smoker [facility] Start: 1995 Sex Assigned At Female [facility] Start: 01-28-2023 End: 04-13-2024 Tobacco smoking status NHIS Ex-smoker [facility] History of tobacco use Current smoker [facility] History of tobacco use Cigarette Smoker [facility] Start: 01-28-2023 End: 05-13-2024 Cigarettes smoked current (pack per day) - Reported 0.5 [facility] Start: 01-28-2023 End: 04-13-2024 Tobacco use and exposure Smokeless tobacco non-user [facility] Start: 01-28-2023 End: 11-06-2024 Alcohol intake Current drinker of alcohol (finding) [facility] Start: 01-28-2023 End: 05-13-2024 Tobacco use panel [facility] Start: 03-29-2012 Adult Depression Screening Assessment 0 [facility] Start: 01-28-2023 Tobacco Comment quit when foun d out about [facility] Start: 06-23-2017 Alcohol Comment occasional [facility] Start: 07-31-2018 Gender identity Identifies as female gender (finding) [facility] Start: 08-09-2024 Sex Female (finding) [facility] Functional Status Date Assessment Result Facility 10-06-2014 Are you deaf, or do you have serious difficulty hearing No 10/06/2014 10:44 AM Eber Quintana [facility] 10-06-2014 Are you blind, or do you have serious difficulty seeing, even when wearing glasses No 10/06/2014 10:44 AM Eber Quintana [facility] 10-06-2014 Do you have serious difficulty walking or climbing stairs No 10/06/2014 10:44 AM Eber Quintana [facility] 10-06-2014 Do you have difficul ty dressing or bathing No 10/06/2014 10:44 AM Eber Quintana [facility] 10-06-2014 Because of a physica l, mental, or emotional condition, do you have difficulty doing errands alone such as visiting a physician's office or shopping No 10/06/2014 10:44 AM EDT Eber Anderson [facility] Mental Status Date Assessment Result Facility 08-09-2024 Cognitive function Level Of Cons ciousness Awake;Alert;Appropriate;Fol lows Commands [facility] Work Phone: 10-06-2014 Because of a physica l, mental, or emotional condition, do you have serious difficulty concentrating, remembering, or making decisions No 10/06/2014 10:44 AM EDT Eber Anderson [facility] Clinical Notes 07-31-2015 to 11-06-2024 Ken Ohara Jr., APRN.AREA SALES MANAGER - 11/06/2024 10:01 AM Faizan Alvares LPN - 11/06/2024 10:00 AM EDTPatient Sven Tirado RT(R) - 11/06/2024 9:40 AM EDT Note Date & Type Note Facility 11-06-2024 Note HNO ID: [id number] Author: KEN OHARA JR, APRN.AREA SALES MANAGER Service: ? Author Type: Nurse Practitioner Type: Progress Notes Filed: 11/06/2024 10:02 Note Text: [facility] SABRINA Stone is a 29 year old female. Patient presents with: Injury: Playing volleyball yesterday, foot went into a hole, left foot/ankle pain Injury Left Ankle Pain: - Injury occurred last evening while playing volleyball on uneven ground; foot went into a hole, accompanied by crunching noises. - Initial pain was minimal, but increased after returning home. - Has been icing and elevating the ankle; reports difficulty sleeping due to pain. - Able to move the foot, but experiences increased pain with plantarflexion. - Denies fever, rashes, abdominal pain, or dyspnea. 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 Review of Systems Constitutional: (+) difficulty sleeping, (-) fever Respiratory: (-) shortness of breath Gastrointestinal: (-) abdominal pain Musculoskeletal: (+) left ankle pain Skin: (-) rash Objective BP 114/80 Pulse 80 Temp 36.2 ?C (97.2 ?F) Resp 18 LMP 07/14/2017 SpO2 98% Physical Exam General: No acute distress. CV: Heart sounds normal, regular rhythm, no murmurs. Resp: Lung sounds clear to auscultation. Abd: Abdominal sounds normal, no abdominal tenderness. MSK/Ext: Left ankle edema, ecchymosis primarily in the lateral aspect of the ankle and foot, no obvious deformity; pedal pulse present and strong; capillary refill of all digits of the left foot less than 2 seconds; left ankle flexion and extension slightly decreased with pain at end range; tenderness to palpation around the lateral left ankle. { 1. Strain of ankle, left, initial encounter (S96.912A) 2. Traumatic ecchymosis of left foot, initial encounter (S90.32XA) 3. Acute left ankle pain (M25.572) 4. Edema of left foot (R60.0) - Left ankle injury sustained during volleyball; examination reveals edema, ecchymosis primarily on the lateral aspect, and tenderness to palpation around the lateral left ankle. No obvious deformity noted. - Left ankle flexion and extension slightly decreased with pain at end range. - Pedal pulse present and strong; capillary refill of all digits of the left foot less than 2 seconds. - Ordered X-rays of the left ankle and foot; preliminary review shows no acute fractures, but radiologist will provide final interpretation. - Diagnosed with a sprain; advised that healing may take 1-2 weeks. - Recommended use of a stirrup brace to limit lateral movement; advised to wear socks to prevent skin irritation. - Continue icing the ankle 20 minutes on, 2 hours off; may switch to warm heat after a few days with the same timing. - Advised against prolonged use of heat to prevent increased inflammation. - Monitor for persistent or worsening symptoms; follow-up recommended if significant pain or dysfunction persists. and Recording using [employer] software for draft documentation of the visit was discussed with the patient/authorized sales representative rural power; all questions welcomed and answered. Patient/authorized sales representative rural power agreed to proceed Differential Diagnoses - Sprained ankle is more likely for the following reason(s): suggested by HANDP - Fractured ankle is less likely for the following reason(s): no evidence on imaging Disposition The patient was discharged. Procedures [facility] 11-06-2024 History of Present illness Narrative [facility] SABRINA Stone is a 29 year old female. Patient presents with: Injury: Playing volleyball yesterday, foot went into a hole, left foot/ankle pain Injury Left Ankle Pain: - Injury occurred last evening while playing volleyball on uneven ground; foot went into a hole, accompanied by "crunching noises." - Initial pain was minimal, but increased after returning home. - Has been icing and elevating the ankle; reports difficulty sleeping due to pain. - Able to move the foot, but experiences increased pain with plantarflexion. - Denies fever, rashes, abdominal pain, or dyspnea. 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 Review of Systems Constitutional: (+) difficulty sleeping, (-) fever Respiratory: (-) shortness of breath Gastrointestinal: (-) abdominal pain Musculoskeletal: (+) left ankle pain Skin: (-) rash Objective BP 114/80 Pulse 80 Temp 36.2 C (97.2 F) Resp 18 LMP 07/14/2017 SpO2 98% Physical Exam General: No acute distress. CV: Heart sounds normal, regular rhythm, no murmurs. Resp: Lung sounds clear to auscultation. Abd: Abdominal sounds normal, no abdominal tenderness. MSK/Ext: Left ankle edema, ecchymosis primarily in the lateral aspect of the ankle and foot, no obvious deformity; pedal pulse present and strong; capillary refill of all digits of the left foot less than 2 seconds; left ankle flexion and extension slightly decreased with pain at end range; tenderness to palpation around the lateral left ankle. { 1. Strain of ankle, left, initial encounter (S96.912A) 2. Traumatic ecchymosis of left foot, initial encounter (S90.32XA) 3. Acute left ankle pain (M25.572) 4. Edema of left foot (R60.0) - Left ankle injury sustained during volleyball; examination reveals edema, ecchymosis primarily on the lateral aspect, and tenderness to palpation around the lateral left ankle. No obvious deformity noted. - Left ankle flexion and extension slightly decreased with pain at end range. - Pedal pulse present and strong; capillary refill of all digits of the left foot less than 2 seconds. - Ordered X-rays of the left ankle and foot; preliminary review shows no acute fractures, but radiologist will provide final interpretation. - Diagnosed with a sprain; advised that healing may take 1-2 weeks. - Recommended use of a stirrup brace to limit lateral movement; advised to wear socks to prevent skin irritation. - Continue icing the ankle 20 minutes on, 2 hours off; may switch to warm heat after a few days with the same timing. - Advised against prolonged use of heat to prevent increased inflammation. - Monitor for persistent or worsening symptoms; follow-up recommended if significant pain or dysfunction persists. and Recording using [employer] software for draft documentation of the visit was discussed with the patient/authorized sales representative rural power; all questions welcomed and answered. Patient/authorized sales representative rural power agreed to proceed Differential Diagnoses - Sprained ankle is more likely for the following reason(s): suggested by H&P - Fractured ankle is less likely for the following reason(s): no evidence on imaging Disposition The patient was discharged. Procedures Ankle stirrup applied to left ankle, patient tolerated well. Faizan Rabago LPN documented in this encounter [facility] 11-06-2024 Note HNO ID: [id number] Author: FAIZAN JACOME LPN Service: ? Author Type: LICENSED NURSE Type: Progress Notes Filed: 11/06/2024 10:02 Note Text: Ankle stirrup applied to left ankle, patient tolerated well. Faizan Rabago LPN [facility] 11-06-2024 Instructions Ken Ohara Jr., APRN.AREA SALES MANAGER - 11/06/2024 9:53 AM EDT - Diagnosed with a left ankle sprain; X-rays show no fracture. - Use an ankle stirrup brace when walking to limit [id number] movement. - Wear socks under the brace to protect your skin. - Ice your ankle for 20 minutes, then rest for 2 hours; repeat as needed. - After a couple of days, you may switch to warm (not hot) heat for 20 minutes, then rest for 2 hours. - Follow up if pain, swelling, or difficulty walking persists or worsens over the next 1-2 weeks. - Use rhev-rvr-xfshwpt medications as needed documented in this encounter [facility] 11-06-2024 History of Present illness Narrative Radiology Service Progress Note PATIENT NAME: Marisela Stone DATE OF SERVICE: November 06, 2024 TIME: 1:06 PM PATIENT IDENTITY VERIFICATION COMPLETED USING TWO (2) IDENTIFIERS: Name and Date of confirmed by patient verbally. FALL SCREENING: Has the patient had 2 falls in the last year or 1 fall with injury or currently using an Ambulatory Assistive Device (Walker, Cane, Wheelchair, Crutches, etc.)? Yes, Patient High Risk for Falls What interventions were put in place to prevent falls during this visit? Offered Assistance with Transfers/Clothing, Instructed Patient to Remain Seated (Not on Exam Table) Until Exam, and Increased Observations by Caregivers PATIENT GENDER DATA: Assigned female at . status: : No status: NO. PATIENT RELEVANT IMPLANT DATA REVIEWED: Not Applicable PATIENT PRESENTS WITH AN IMPLANTABLE OR ATTACHED DRAPERY HEAD FORMER: No RADIOLOGY DEPARTMENT: General X-ray: Exam(s) Completed: Lower Extremity X-Ray(s): Ankle, Left PERIPHERAL IV DATA: Not applicable SIGNED BY: SILAS Stinson) November 06, 2024 1:06 PM documented in this encounter [facility] 11-06-2024 Note HNO ID: [id number] Author: SVEN GAMBLE RT(R) Service: ? Author Type: Technologist Type: Progress Notes Filed: 11/06/2024 13:06 Note Text: Radiology Service Progress Note PATIENT NAME: Marisela Stone DATE OF SERVICE: November 06, 2024 TIME: 1:06 PM PATIENT IDENTITY VERIFICATION COMPLETED USING TWO (2) IDENTIFIERS: Name and Date of confirmed by patient verbally. FALL SCREENING: Has the patient had 2 falls in the last year or 1 fall with injury or currently using an Ambulatory Assistive Device (Walker, Cane, Wheelchair, Crutches, etc.)? Yes, Patient High Risk for Falls What interventions were put in place to prevent falls during this visit? Offered Assistance with Transfers/Clothing, Instructed Patient to Remain Seated (Not on Exam Table) Until Exam, and Increased Observations by Caregivers PATIENT GENDER DATA: Assigned female at . status: : No status: NO. PATIENT RELEVANT IMPLANT DATA REVIEWED: Not Applicable PATIENT PRESENTS WITH AN IMPLANTABLE OR ATTACHED DRAPERY HEAD FORMER: No RADIOLOGY DEPARTMENT: General X-ray: Exam(s) Completed: Lower Extremity X-Ray(s): Ankle, Left PERIPHERAL IV DATA: Not applicable SIGNED BY: RT Shantell(R) November 06, 2024 1:06 PM [facility] 08-09-2024 Radiology Diagnostic study note [facility] Imaging Services [address] [place] [address] [id number] Brain/Head without Contrast MR#: [id number] Acct: [id number] Name: MARISELA STONE Rep #: [id number] : 1995 F 29 From: Yari Nash MD PCP: Dr. Santana Hernandez MD Status: REG ER Study:Brain/Head without Contrast Date of Exa m: 08/09/24 Exam# [id number] Ordering Dr: Víctor Colon DO PROCEDURE: BRAIN/HEAD WITHOUT CONTRAST 08/09/2024 REASON FOR EXAM: DIZZINESS Base of neck pain, double vision, factor 5 Leiden, on Eliquis TECHNIQUE: Head CT without intravenous contrast. Coronal and Sagittal reconstruction serieswere provided. One or more dose reduction techniques were used (e.g., Automated exposure control, adjustment of the mA and/or kV according to patient size, use of iterative reconstruction technique. RADIATION DOSE SUMMARY: CTDlvol: 44.99 mGy DLP: 779.2 mGycm COMPARISON: None FINDINGS: Brain: No intracranial hemorrhage, mass effect, midline shift. Sultana-white matter differentiation maintained without CT findings of acute infarct. No cerebral edema or sulcal effacement. CSF Spaces: Normal Sinuses/Mastoids: Clear at visualized levels Bones: Calvarium appears intact. CT/Brain/Head without Contrast IMPRESSION: NO ACUTE FINDINGS Reading Location: [facility] CC: Dr. Víctor Colon, DO; Dr. Santana Hernandez MD ~ Dog License Officer Supervisor: Signed [facility] 04-13-2024 Note HNO ID: [id number] Author: AMAURY BARGER APRN.AREA SALES MANAGER Service: ? Author Type: Nurse Practitioner Type: Progress Notes Filed: 04/13/2024 15:39 Note Text: CC: Patient presents with: Head Congestion: Sinus pain and pressure, bilateral ear ringing, dizziness, nausea X3 weeks, has been on amox HPI: Marisela Stone is a 28 year old female who presents to the office with complaint of head congestion, cough, nonproductive, and sinus symptoms for 3 weeks. Symptoms are staying the same. Associated symptoms includes nasal congestion and facial pain/pressure. Denies fever, nausea, vomiting , and diarrhea. Treatments tried include amoxicillin so far. with no relief of symptoms. Sick contacts: unknown. History of asthma, frequent episodes of bronchitis, chronic bronchitis, bronchiectasis or COPD: No Smoker: No Seasonal/environmental allergies: No The ROS is otherwise negative. The patient's pmh, medications, allergies, and past visits are reviewed. PHYSICAL EXAM: BP 137/85 Pulse 90 Temp 36.9 ?C (98.5 ?F) Resp 18 Wt 98.8 kg (217 lb 13 oz) LMP 07/14/2017 SpO2 99% No BMI 37.19 kg/m? General appearance: alert, cooperative, pleasant, in no acute distress Head: Normocephalic Eyes: EOM's intact, conjunctiva pink and moist, no icterus, sclera white, non-injected Ears: Right ear: External ear/canal- Normal, TM - clear with good landmarks. Left ear: External ear/canal- Normal, TM - clear with good landmarks Oropharynx:mild erythema, without exudates present uvula midline Heart: Negative. RRR without obvious murmur, gallop, or rubs. No ectopy. Lungs: clear to auscultation, without rales or wheeze, good air exchange PAST MEDICAL HISTORY Diagnosis Date Appendicitis 06/03/2011 Chlamydia infection 2013 History of ovarian cyst 09/11/2011 PMH - PAST MEDICAL HISTORY OF 12/01/08 normal. color vision Right ovarian cyst Thyroid nodule 08/06/2018 PAST SURGICAL HISTORY Procedure Laterality Date DELIVERY ONLY 09/02/15 , low transverse EXTRACTION, ERUPTED TOOTH OR EXPOSED ROOT (ELEVATION AND/OR FORCEPS REMOVAL) 11/21/13 x2 LAPAROSCOPIC APPENDECTOMY 06-03-11 PAST SURGICAL HISTORY OF 10/18/13 glass removed from right hand ALLERGIES Codeine MEDICATIONS apixaban (ELIQUIS) 5 mg tab(s) Take by mouth two times a day. spironolactone (ALDACTONE) 100 mg tablet Take 100 mg by mouth once daily. meclizine (ANTIVERT) 25 mg tab TAKE 1 TABLET BY MOUTH THREE TIMES A DAY NEEDED FOR DIZZINESS (Patient not taking: Reported on 04/13/2024) cefUROXime (CEFTIN) 500 mg tablet (Patient not taking: Reported on 04/13/2024) Amoxicillin 500 mg tablet (Patient not taking: Reported on 04/13/2024) FAMILY HISTORY Problem Relation Age of Onset Hypertension Maternal Grandmother Lipids Maternal Grandfather High Cholesterol other (past) Paternal Grandmother brain stem disorder. Breast Cancer Other Maternal Second Cousin Cancer Other Cervical-Maternal Side Social History Tobacco Use Smoking status: Former Current packs/day: 0.50 Types: Cigarettes Smokeless tobacco: Never Tobacco comments: quit when found out about Substance Use Topics Alcohol use: Yes Comment: occasional Drug use: No ASSESSMENT/PLAN: 1. Rhinosinusitis - ICD9: 473.9, ICD10: J32.9 - DOXYCYCLINE HYCLATE 100 MG TABLET - FLUTICASONE PROPIONATE 50 MCG/ACTUATION NASAL SPRAY,SUSPENSION Prescription instructions reviewed with patient as applicable. Potential red flag symptoms discussed with the patient. Reviewed appropriate action plan to take if red flag symptoms occur. Patient agreeable to treatment plan. Has ENT appt on apr 22. Amaury Barger APRN.[facility] 04-13-2024 History of Present illness Narrative CC: Patient presents with: Head Congestion: Sinus pain and pressure, bilateral ear ringing, dizziness, nausea X3 weeks, has been on amox HPI: Marisela Stone is a 28 year old female who presents to the office with complaint of head congestion, cough, nonproductive, and sinus symptoms for 3 weeks. Symptoms are staying the same. Associated symptoms includes nasal congestion and facial pain/pressure. Denies fever, nausea, vomiting , and diarrhea. Treatments tried include amoxicillin so far. with no relief of symptoms. Sick contacts: unknown. History of asthma, frequent episodes of bronchitis, chronic bronchitis, bronchiectasis or COPD: No Smoker: No Seasonal/environmental allergies: No The ROS is otherwise negative. The patient's pmh, medications, allergies, and past visits are reviewed. PHYSICAL EXAM: BP 137/85 Pulse 90 Temp 36.9 C (98.5 F) Resp 18 Wt 98.8 kg (217 lb 13 oz) LMP 07/14/2017 SpO2 99% No BMI 37.19 kg/m General appearance: alert, cooperative, pleasant, in no acute distress Head: Normocephalic Eyes: EOM's intact, conjunctiva pink and moist, no icterus, sclera white, non-injected Ears: Right ear: External ear/canal- Normal, TM - clear with good landmarks. Left ear: External ear/canal- Normal, TM - clear with good landmarks Oropharynx:mild erythema, without exudates present uvula midline Heart: Negative. RRR without obvious murmur, gallop, or rubs. No ectopy. Lungs: clear to auscultation, without rales or wheeze, good air exchange PAST MEDICAL HISTORY Diagnosis Date Appendicitis 06/03/2011 Chlamydia infection 2013 History of ovarian cyst 09/11/2011 PMH - PAST MEDICAL HISTORY OF 12/01/08 normal. color vision Right ovarian cyst Thyroid nodule 08/06/2018 PAST SURGICAL HISTORY Procedure Laterality Date DELIVERY ONLY 09/02/15 , low transverse EXTRACTION, ERUPTED TOOTH OR EXPOSED ROOT (ELEVATION AND/OR FORCEPS REMOVAL) 11/21/13 x2 LAPAROSCOPIC APPENDECTOMY 06-03-11 PAST SURGICAL HISTORY OF 10/18/13 glass removed from right hand ALLERGIES Codeine MEDICATIONS apixaban (ELIQUIS) 5 mg tab(s) Take by mouth two times a day. spironolactone (ALDACTONE) 100 mg tablet Take 100 mg by mouth once daily. meclizine (ANTIVERT) 25 mg tab TAKE 1 TABLET BY MOUTH THREE TIMES A DAY NEEDED FOR DIZZINESS (Patient not taking: Reported on 04/13/2024) cefUROXime (CEFTIN) 500 mg tablet (Patient not taking: Reported on 04/13/2024) Amoxicillin 500 mg tablet (Patient not taking: Reported on 04/13/2024) FAMILY HISTORY Problem Relation Age of Onset Hypertension Maternal Grandmother Lipids Maternal Grandfather High Cholesterol other (past) Paternal Grandmother brain stem disorder. Breast Cancer Other Maternal Second Cousin Cancer Other Cervical-Maternal Side Social History Tobacco Use Smoking status: Former Current packs/day: 0.50 Types: Cigarettes Smokeless tobacco: Never Tobacco comments: quit when found out about Substance Use Topics Alcohol use: Yes Comment: occasional Drug use: No ASSESSMENT/PLAN: 1. Rhinosinusitis - ICD9: 473.9, ICD10: J32.9 - DOXYCYCLINE HYCLATE 100 MG TABLET - FLUTICASONE PROPIONATE 50 MCG/ACTUATION NASAL SPRAY,SUSPENSION Prescription instructions reviewed with patient as applicable. Potential red flag symptoms discussed with the patient. Reviewed appropriate action plan to take if red flag symptoms occur. Patient agreeable to treatment plan. Has ENT appt on apr 22. Amaury Barger APRN.AREA SALES MANAGER documented in this encounter [facility] 01-28-2023 History of Present illness Narrative This note was created using [employer] Cloud[employer]. Subjective Marisela Stone is a 27 year old female. 27 year old female with PMH PCOS and depression/anxiety presents for illness. Acute onset 2 to 3 days ago +headache + body aches +sore throat +lymph node tenderness +nasal congestion Denies cough. Exposure to strep Denies tobacco usage. Has been using cough drops. The history is provided by the patient. No english as a second language teacher was used. Sore Throat This is a new problem. The current episode started in the past 7 days. The problem has been gradually worsening. Neither side of throat is experiencing more pain than the other. There has been no fever. The pain is at a severity of 5/10. The pain is moderate. Associated symptoms include congestion, headaches and swollen glands. Pertinent negatives include no abdominal pain, coughing, diarrhea, drooling, ear discharge, ear pain, hoarse voice, plugged ear sensation, neck pain, shortness of breath, stridor, trouble swallowing or vomiting. She has had exposure to strep. She has had no exposure to mono. She has tried nothing for the symptoms. The treatment provided no relief. PAST MEDICAL HISTORY Diagnosis Date Appendicitis 06/03/2011 Chlamydia infection 2012 History of ovarian cyst 09/11/2011 PMH - PAST MEDICAL HISTORY OF 12/01/08 normal. color vision Right ovarian cyst Thyroid nodule 08/06/2018 PAST SURGICAL HISTORY Procedure Laterality Date DELIVERY ONLY 09/02/15 , low transverse EXTRACTION, ERUPTED TOOTH OR EXPOSED ROOT (ELEVATION AND/OR FORCEPS REMOVAL) 11/21/13 x2 LAPAROSCOPIC APPENDECTOMY 06-03-11 PAST SURGICAL HISTORY OF 10/18/13 glass removed from right hand ALLERGIES Patient has no known allergies. MEDICATIONS amoxicillin (AMOXIL) 500 mg capsule Take 1 capsule by mouth two times a day for 10 days. fluconazole (DIFLUCAN) 150 mg tablet Take 1 tablet by mouth one time only for 1 dose. Repeat in 3 days as needed. FAMILY HISTORY Problem Relation Age of Onset Hypertension Maternal Grandmother Lipids Maternal Grandfather High Cholesterol other (past) Paternal Grandmother brain stem disorder. Breast Cancer Other Maternal Second Cousin Cancer Other Cervical-Maternal Side Social History Tobacco Use Smoking status: Former Packs/day: .5 Types: Cigarettes Smokeless tobacco: Never Tobacco comments: quit when found out about Substance Use Topics Alcohol use: Yes Alcohol/week: 0.0 standard drinks of alcohol Comment: occasional Drug use: No Review of Systems Constitutional: Positive for chills, fatigue and fever. Negative for activity change and appetite change. HENT: Positive for congestion and sore throat. Negative for drooling, ear discharge, ear pain, hoarse voice and trouble swallowing. Eyes: Negative for pain, discharge and itching. Respiratory: Negative for cough, shortness of breath and stridor. Cardiovascular: Negative for chest pain, palpitations and leg swelling. Gastrointestinal: Negative for abdominal pain, diarrhea and vomiting. Musculoskeletal: Negative for neck pain. Skin: Negative for color change, pallor, rash and wound. Allergic/Immunologic: Negative for environmental allergies, food allergies and immunocompromised state. Neurological: Positive for headaches. Negative for dizziness, facial asymmetry, light-headedness and numbness. Hematological: Negative for adenopathy. Does not bruise/bleed easily. Psychiatric/Behavioral: Negative for agitation and behavioral problems. Objective BP 110/72 Pulse 81 Temp 37.1 C (98.7 F) (Tympanic) Resp 18 Wt 97.2 kg (214 lb 3.2 oz) LMP 07/14/2017 SpO2 98% BMI 36.57 kg/m Physical Exam Vitals and nursing note reviewed. Constitutional: General: She is not in acute distress. Appearance: Normal appearance. She is normal weight. She is not ill-appearing, toxic-appearing or diaphoretic. HENT: Head: Normocephalic and atraumatic. Right Ear: Ear canal and external ear normal. Left Ear: Ear canal and external ear normal. Nose: Nose normal. No congestion or rhinorrhea. Mouth/Throat: Mouth: Mucous membranes are moist. Pharynx: Posterior oropharyngeal erythema (uvula midline. Handling secretions.) present. No oropharyngeal exudate. Eyes: General: Right eye: No discharge. Left eye: No discharge. Extraocular Movements: Extraocular movements intact. Conjunctiva/sclera: Conjunctivae normal. Pupils: Pupils are equal, round, and reactive to light. Cardiovascular: Rate and Rhythm: Normal rate and regular rhythm. Pulses: Normal pulses. Heart sounds: Normal heart sounds. No murmur heard. No friction rub. Pulmonary: Effort: Pulmonary effort is normal. No respiratory distress. Breath sounds: Normal breath sounds. No stridor. No wheezing, rhonchi or rales. Chest: Chest wall: No tenderness. Abdominal: General: Abdomen is flat. There is no distension. Palpations: Abdomen is soft. There is no mass. Tenderness: There is no abdominal tenderness. There is no right CVA tenderness, left CVA tenderness, guarding or rebound. Hernia: No hernia is present. Musculoskeletal: General: No swelling, tenderness, deformity or signs of injury. Normal range of motion. Cervical back: Normal range of motion and neck supple. No rigidity. Right lower leg: No edema. Left lower leg: No edema. Lymphadenopathy: Cervical: Cervical adenopathy present. Skin: General: Skin is warm and dry. Capillary Refill: Capillary refill takes less than 2 seconds. Coloration: Skin is not jaundiced or pale. Findings: No bruising, erythema, lesion or rash. Neurological: General: No focal deficit present. Mental Status: She is alert and oriented to person, place, and time. Cranial Nerves: No cranial nerve deficit. Sensory: No sensory deficit. Motor: No weakness. Coordination: Coordination normal. Gait: Gait normal. Psychiatric: Mood and Affect: Mood normal. Behavior: Behavior normal. Thought Content: Thought content normal. Judgment: Judgment normal. Assessment and Plan ASSESSMENT/PLAN: 1. Strep pharyngitis - ICD9: 034.0, ICD10: J02.0 X 2 to 3 days - suspect strep - Group A strep molecular testing positive - antibiotic as written RX Diflucan - Discussed supportive care treatment with fluids, rest and analgesia. - The patient may also use OTC cough and cold meds as needed, warm salt water gargles, throat lozenges and/or OTC throat spray as needed, and nasal saline gtts and suction prn. - Contagious dz precautions discussed- including considered contagious until on antibiotics for 24 hours - The patient should follow up in 3-5 days if symptoms persist or worsen - Call back if drooling, increased temperature, symptoms of dehydration and/or still sick in one week - STREP A MOLECULAR (POC) Barbara Nice APRN.AREA SALES MANAGER documented in this encounter [facility] 07-30-2021 Note [facility] Work Phone: Pap Smear Specimen Adequacy July 30, 2021 9:01am Comment Satisfactory for evaluation. Endocervical and/or squamous metaplasticcells (endocervical component) are present. Comment on above: Satisfactory for juan jose luation. Endocervical and/or squamous metaplasticcells (endocervical component) are present. 07-31-2015 History of Past i llness Narrative Problem Noted Date Diagnosed Date Resolved Date Positive GBS test 07/31/2015 07/16/2017 Encounter for supervision of normal first in third trimester [Z34.03] 06/29/2015 Encounter for supervision of normal first in first trimester 01/04/2015 07/16/2017 Overview: Teen Foreign body in hand 11/03/2013 015 History of ovarian cyst 09/11/201108/2014 Pelvic pain 09/11/2011 03/02/2015 Appendicitis 06/03/2011 06/11/2011 RLQ abdominal pain 06/03/2011 2 Enlarged tonsils 03/11/2011 03/02/2015 documented as of this encounter (statuses as of 01/29/2023) [facility] note* Diagnosis Onset Date Resolution Status Multinodular goiter acute ASCUS with positive high risk HPV cervical acute DVT (deep venous thrombosis) acute PCOS (polycystic ovarian syndrome) acute [facility] Work Phone: evaluation note* Diagnosis Onset Date Resolution Status ASCUS with positive high risk HPV cervical acute Contraceptive management acu te DVT (deep venous thrombosis) acute GERD (gastroesophageal reflux disease) acute Multinodular goiter acute PCOS (polycystic ovarian syndrome) acute Encounter for IUD insertion acute IUD check up noneactive [facility] Work Phone: Evaluation note* Diagnosis Onset Date Resolution Status Social anxiety disorder acut e Encounter for routine gynecological examination noneactive Screen for STD (sexually transmitted disease) noneactive [facility] Work Phone: Evaluation note* Diagnosis Strep pharyngitis- Primary Streptococcal sore throat [facility] Diagnosis Onset Date Resolution Status Acute deep vein thrombosis (DVT) acute DVT (deep venous thrombosis) acute Encounter for wellness examination in adult acute History of DVT (deep vein thrombosis) acute [facility] Work Phone: evaluation noteNo assessment information available [facility] Work Phone: evaluation note* Diagnosis Rhinosinusitis- Primary Unspecified sinusitis (chronic) [facility] Diagnosis Strain of ankle, left, initial encounter- Primary Traumatic ecchymosis of left foot, initial encounter Acute left ankle pain Edema of left foot Edema [facility] Diagnosis Acute left ankle pain [facility]No reason for referral information [facility] Work Phone: Reason for visit Narrative* Diagnostic Procedure Only (Routine) - Closed Specialty Diagnoses / Procedures Referred By Contac t Referred To Contact XR IMAGING Diagnoses Acute left ankle pain Procedures XR ANKLE GENERAL 3V AP/LAT/OBL LEFT RADEX ANKLE COMPLETE MINIMUM 3 VIEWS Mayda, Ken J Jr., UTILITY SALES AND SERVICE MANAGER.AREA SALES MANAGER [address] [place] [address] Phone: tel: fax: [place] [id number] Referral ID Status Reason Start Date Expiration Date V isits Requested Visits Authorized [id number] Closed Auto-Generate d Referral 11/06/2024 12/06/2025 1 1 [facility] Summary Purpose Family History Relationship Condition Age at Onset Recorded Date/T etta Not Specified Hypertension Unknown mother Diabetes mellitus Unknown Relationship Condition Age at Onset Recorded Date/T etta Not Specified Hypertension Unknown mother Diabetes mellitus Unknown grandmother Neuropathy Unknown Relationship Condition Age at Onset Recorded Date/T etta unrelated friend Hypertension Unknown mother Diabetes mellitus Unknown grandmother Neuropathy Unknown Advance Directives Advance Directive Response Recorded Date/ Time Living Will No August 24, 2020 8:53pm Power of Garbage Man No August 24 8:53pm Advance Directive Response Recorded Date/ Time Living Will No August 24, 2020 7:53pm Power of Garbage Man No August 24 7:53pm Advance Directive Response Recorded Date/ Time Living Will No March 05 11:34am Power of Garbage Man No March 05, 2023 11:34am Advance Directive Response Recorded Date/ Time Living Will No August 09, 2024 3:29pm Do you have a [facility] Power of Garbage Man? 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 ADVISOR) Reason for Visit Multinodular goiter ASCUS with positive high risk HPV cervical DVT (deep venous thrombosis) PCOS (polycystic ovarian syndrome) Chief Complaint discuss Tubal ligati on Mirena insertion PELVIC PAIN string check Reason for Visit ASCUS with positive high risk HPV cervical Contraceptive management DVT (deep venous thrombosis) GERD (gastroesophageal reflux disease) Multinodular goiter PCOS (polycystic ovarian syndrome) Encounter for IUD insertion IUD check up Chief Complaint DISCUSS ANXIETY,DEPR ESSION Annual (IMPLEMENTATION ADVISOR) Reason for Visit Social anxiety disor juan Encounter for routine gynecological examination Screen for STD (sexually transmitted disease) Chief Complaint STAT Acute embolism and thrombosis of unspecified Deep vein thrombosis Reason for Visit Acute deep vein thro mbosis (DVT) DVT (deep venous thrombosis) Encounter for wellness examination in adult History of DVT (deep vein thrombosis) Chief Complaint 6 M FU Chief Complaint Admit Date EOER April 17, 2024 8:41am DIZZINESS, ATTN IAC May 20, 2024 7 :19am dizziness August 09, 2024 3:0 3pm Additional Source Comments INFORMATION SOURCE (unrecogn ized section and content) DATE CREATED AUTHOR 10/21/2017 [facility] ([place]) DATE CREATED AUTHOR AUTHOR'S ORGANIZ ATION 04/17/2024 [facility] DATE CREATED AUTHOR AUTHOR'S ORGANIZ ATION 08/14/2024 [facility] DATE CREATED AUTHOR AUTHOR'S ORGANIZ ATION 11/10/2024 [facility] nt Goals (unrecognized section and content) Goals may be documented in a n alternate sectionGoals may be documented in an alternate sectionGoals may be documented in an alternate sectionGoals may be documented in an alternate sectionGoals may be documented in an alternate sectionGoals may be documented in an alternate section Care Teams (unrecognized sec tion and content) Team Status: Active Member Role Status Dates No Primary Care Physician Family Provider Active Dr. Santana Hernandez MD Primary Care Provider Active Team Status: Inactive Member Role Status Dates Dr. Santana Hernandez MD Primary Care Provider, Referri ng Provider Active Meryl Perez FLIGHT DISPATCHER, FLIGHT DISPATCHER-C Attending Provider Active Team Status: Inactive Member Role Status Dates Dr. Santana Hernandez MD Primary Care Provider, Referri ng Provider Active Dr. Virgie Smallwood DO Attending Provider Activ e Team Status: Inactive Member Role Status Dates Dr. Santana Hernandez MD Primary Care Provider Active Meryl Perez FLIGHT DISPATCHER, FLIGHT DISPATCHER-C Attending Provider, Referring Provider Active Team Status: Active Member Role Status Dates Dr. Santana Hernandez MD Primary Care Provider Active Dr. Víctor Nina MD Attending Provider Active Team Status: Inactive Member Role Status Dates Dr. Santana Hernandez MD Primary Care Provider, Attendi ng Provider Active Team Status: Inactive Member Role Status Dates Dr. Santana Hernandez MD Primary Care Pro vider, Attending Provider, Referring Provider Active Team Status: Active Member Role Status Dates Dr. Santana Hernandez MD Primary Care Provider Active Team Status: Inactive Member Role Status Dates Dr. Santana Hernandez MD Primary Care Provider Active Start: April 17, 2024 End: April 17, 2024 Dr. Santana Hernandez MD Attending Provider Active Start: April 17, 2024 End: April 17, 2024 Dr. Santana Hernandez MD Referring Provider Active Start: April 17, 2024 End: April 17, 2024 Team Status: Inactive Member Role Status Dates Dr. Santana Hernandez MD Primary Care Provider Active Start: May 20, 2024 End: May 20, 2024 Dr. Santana Hernandez MD Attending Provider Active Start: May 20, 2024 End: May 20, 2024 Dr. Santana Hernandez MD Referring Provider Active Start: May 20, 2024 End: May 20, 2024 Dr. Alex Sow MD Other Provider Active Star t: May 20, 2024 End: May 20, 2024 Team Status: Inactive Member Role Status Dates Dr. Santana Hernandez MD Primary Care Provider Active Start: August 09, 2024 End: August 09, 2024 Dr. Víctor Colon DO Emergency Provider Active Start: August 09, 2024 End: August 09, 2024 Pediatric Nephrologist Relationship Specialty Start Date End Date Santana Hernandez MD [address] [address] PCP - General Internal Medicine 05/12/24 Santana Hernandez MD [address] [place] [address] Internal Medicine 05/12/24 Pediatric Nephrologist Relationship Specialty Start Date End Date Santana Hernandez MD [address] [address] [place] [address] PCP - General Internal Medicine 05/12/24 Santana Hernandez MD [address] [address] [place] [address] Internal Medicine 05/12/24 Pediatric Nephrologist Relationship Specialty Start Date End Date Santana Hernandez MD [address] [facility] [address] [place], [place] [id number] PCP - General Internal Medicine 05/12/24 Santana Hernandez MD [address] [facility] [address] [place], [place] [id number] Internal Medicine 05/12/24 Source Comments (unrecognize d section and content) In the event this informatio n is protected by the Federal Confidentiality of Alcohol and Drug Abuse Patient Records regulations: The Federal rules restrict any use of the information to criminally investigate or prosecute any alcohol or drug abuse patient.[facility] the event this information is protected by the Federal Confidentiality of Alcohol and Drug Abuse Patient Records regulations: The Federal rules restrict any use of the information to criminally investigate or prosecute any alcohol or drug abuse patient.[facility] the event this information is protected by the Federal Confidentiality of Alcohol and Drug Abuse Patient Records regulations: The Federal rules restrict any use of the information to criminally investigate or prosecute any alcohol or drug abuse patient.[facility] the event this information is protected by the Federal Confidentiality of Alcohol and Drug Abuse Patient Records regulations: The Federal rules restrict any use of the information to criminally investigate or prosecute any alcohol or drug abuse patient.[facility] Hospital[facility] the event this information is protected by the Federal Confidentiality of Alcohol and Drug Abuse Patient Records regulations: The Federal rules restrict any use of the information to criminally investigate or prosecute any alcohol or drug abuse patient.[facility] Reason for Visit (unrecogniz ed section and content) Reason Comments Sore Throat ST, [place], bodyaches an d ST x 2-3 days Reason Comments Head Congestion Sinus pain and press ure, bilateral ear ringing, dizziness, nausea X3 weeks, has been on amox Reason Comments Injury Playing volleyball y , foot went into a hole, left foot/ankle pain FOR RECORDS PERTAINING TO PATIENTS WHO ARE OR HAVE BEEN ENROLLED IN A CHEMICAL DEPENDENCY/SUBSTANCEABUSE PROGRAM, SOME INFORMATION MAY BE OMITTED. This clinical summary was aggregated from multiple sources. Caution should be exercised in using it in the provision of clinical care. This summary normalizes information from multiple sources, and as a consequence, information in this document may materially change the coding, format and clinical context of patient data. In addition, data may be omitted in some cases. CLINICAL DECISIONS SHOULD BE BASED ON THE PRIMARY CLINICAL RECORDS. [employer] [facility]. provides no warranty or guarantee of the accuracy or completeness of information in this document.
[2025-02-10 11:32] LABS: AST(SGOT) 16 U/L (<=31); Alanine Aminotransfer ALT/SGPT 17 U/L (<=34); Albumin, Serum 4.4 g/dL (3.5-5.0); Alkaline Phosphatase 83 U/L (35-104); Anion Gap 10 (5-15); BUN 9 mg/dL (4-19); BUN/Creat Ratio 11.2 RATIO (10-20); Calcium,Total 9.4 mg/dL (7.6-11.0); Carbon Dioxide 25.8 mmol/L (21.0-32.0); Chloride 103 mmol/L (98-108); Cholesterol 174 mg/dL (<=200); Free T3 3.3 pg/mL (2.18-3.98); Globulin 3.2 g/dL (2.2-4.2); Glucose 101 mg/dL (70-99); Low Density Lipoprotein Calc. 126 mg/dL; Potassium 4.0 mmol/L (3.3-5.1); Triglycerides 102 mg/dL; Very Low Density Lipoprotein 20 mg/dL (5-40); cholesterol:hdl ratio screen 6.35
== END | disposition home or self-care (01) ==
PROVIDERS: PCP Internal Medicine; Referring Provider Internal Medicine; Visit Provider Internal Medicine
DX: Z00.00 Encounter for general adult medical examination without abnormal findings (principal); Z13.220 Encounter for screening for lipoid disorders; D68.51 Activated protein C resistance; E04.2 Nontoxic multinodular goiter; E28.2 Polycystic ovarian syndrome; E66.9 Obesity, unspecified; R73.9 Hyperglycemia, unspecified
CPT/HCPCS: 36415; 80053; 80061; 83036; 84439; 84443; 84481; 85025; 85379

== ENCOUNTER → 2025-02-21 | Outpatient (CLI) | payer BC, SELFPAY | END | disposition home or self-care (01) | LOC: US 12:01 | PROVIDERS: PCP Internal Medicine; Referring Provider Internal Medicine; Visit Provider Internal Medicine | DX: E04.2 Nontoxic multinodular goiter (principal); R13.10 Dysphagia, unspecified | CPT/HCPCS: 76536 ==

== ENCOUNTER → 2025-03-16 | Outpatient (CLI) | payer SELFPAY ==
--- NOTE | 2025-03-16 17:52 | CT_ITS ---
PROCEDURE: SOFT TISSUE NECK WITHOUT CONTR 03/16/2025 REASON FOR EXAM: NECK SWELLING. History of thyroid nodules. TECHNIQUE: Procedure Code: CTNE Modality: CT Procedure: SOFT TISSUE NECK WITHOUT CONTR CONTRAST: None One or more dose reduction techniques were used (e.g., Automated exposure control, adjustment of the mA and/or kV according to patient size, use of iterative reconstruction technique). RADIATION DOSE SUMMARY: CTDlvol: 17.03 mGy DLP: 587.34 mGycm COMPARISON: None FINDINGS: Airway: Midline and patent. Salivary glands: Unremarkable. Lymph nodes: No cervical lymphadenopathy. Thyroid: There is a 11.8 mm x 7.5 mm hypodensity in the lower midportion of the right lobe of the thyroid. Vasculature: Carotid arteries and internal jugular veins are unremarkable. Orbits: Unremarkable at visualized levels. Paranasal sinuses and mastoids: Grossly clear at visualized levels. Lung apices: Clear. Upper mediastinum: Visualized mediastinum is unremarkable. Bones: Unremarkable. Other: CT/Soft Tissue Neck without Contr IMPRESSION: 11.8 mm 7.5 mm hypodensity in the right lobe of the thyroid. No other abnormal ity is seen. Reading Location: [facility]
== END | disposition home or self-care (01) ==
LOC: CT 17:19
PROVIDERS: PCP Internal Medicine; Referring Provider Internal Medicine; Visit Provider Internal Medicine
DX: R13.10 Dysphagia, unspecified (principal); R22.1 Localized swelling, mass and lump, neck
CPT/HCPCS: 70490